=== PATIENT | male | born 1965 | race Caucasian/White ===

== ENCOUNTER → 2022-01-19 | Outpatient (CLI) | payer MEDICARE, SELFPAY ==
--- NOTE | 2022-01-19 12:00 | PET_ITS ---
EXAMINATION: FDG PET/CT ? INDICATIONS: 56-year-old male with a history of pulmonary nodularity. ? COMPARISON EXAMINATION: None available ? INDEX LESION SIZE SUV INTERPRETATION Left upper lung, left upper lobe 13.1 mm 3.2 Fulfills quantitative criteria for viable neoplasm, histopathologic analysis recommended ? Left upper lung, posteromedial ? 2.2 Quantitative criteria for viable neoplasm not fulfilled ? TECHNIQUE: Following the intravenous administration of 13.08 mCi of F-18 deoxyglucose via the right antecubital fossa, multiplanar image acquisitions of the neck, chest, abdomen and pelvis to the level of the midthigh, obtained at one-hour post radiopharmaceutical administration contemporaneously interpreted reveal: ? SERUM GLUCOSE LEVEL:? 133 mg/dL? HEIGHT:?? 61 inches WEIGHT:?? 120 pounds ? FINDINGS: ? HEAD/NECK:? There is no evidence of abnormal increased glucose metabolism in the pharyngeal mucosal space, parapharyngeal space, oropharynx, bilateral-lateral and anterior neck, hypopharynx and distribution of the larynx. ? The visualized portion of the cerebral cortical-subcortical structures demonstrate symmetric and preserved glucose metabolism. ? CHEST:? A nodular focus of increased radiopharmaceutical is noted in the left upper lung field, left upper lobe with a calculated standard uptake value of 3.2. The maximal axial diameter of the metabolic, morphologic abnormality is 13.1 mm. An additional focus of enhanced labeled GLUCOSE is noted in the left upper posteromedial lung, left upper lobe with a calculated standard uptake value of 2.2. ? CT of the chest demonstrates the following anatomic characteristics: Emphysematous changes are encountered in the bilateral upper lung bender. Atherosclerotic calcification is defined in the thoracic aorta without evidence of dilatation, aneurysm formation. Coronary artery calcification is observed. Mediastinal and bilateral axillary soft tissue densities are nonglucose avid. Bronchiectatic changes are defined in the bilateral posteromedial lung zones. ? ABDOMEN/PELVIS:? Normal physiologic distribution of the radiopharmaceutical is identified in the hepatic (2.4) and splenic parenchyma, both renal units, urinary bladder, and visualized intestinal tract. ? CT of the abdomen and pelvis is remarkable for the following: There appears to be calcification in the pancreatic head. Atherosclerotic calcification is defined in the abdominal aorta without evidence of dilatation, aneurysm formation. Pelvic arterial calcification is observed. A fat containing left inguinal hernia is noted. Right and left inguinal soft tissue densities are nonglucose avid. Calcification is defined in the prostate gland. ? SKELETAL:? There is no evidence of quantitatively significant enhanced glucose metabolism on meticulous inspection of the appendicular and axial skeletal structures. ? Degenerative changes defined in the thoracic and lumbar spine demonstrate no evidence of increased glucose metabolism. There are no sclerotic, mixed sclerotic-lytic, or primarily lytic changes defined in the axial skeletal structures with evidence of increased FDG uptake. ? PET/PET/CT Tumor Base -Thigh Init IMPRESSION: 1. The increase in FDG concentration noted in the nodular density in the left upper lung field fulfills quantitative criteria for viable neoplasm with single point technique. Histopathologic analysis is recommended. (Gunn et al, Journal of Nuclear Medicine, 32:1, 1991). 2. The increase in GLUCOSE metabolism manifest in the left upper posteromedial lung zone does not fulfill quantitative criteria for malignant transformation. Electronic Signature Eliseo Barakat D.O. Accurate Quantification of SUVs for this report are calculated using the exclusive [employer]. (U.S. Patent No. [id number] [id number]). Standardization and correction of the FDG SUV metric via [employer] technology allow for vendor non-specific objective quantitative examination comparison and optimization of the sensitivity and specificity of the FDG PET-CT examination. Electronically Signed: Eliseo Barakat, at 22:34 EST ,
== END | disposition home or self-care (01) ==
PROVIDERS: PCP Family Medicine; Referring Provider Student in an Organized Health Care Education/Training Program; Visit Provider Student in an Organized Health Care Education/Training Program
DX: R91.1 Solitary pulmonary nodule (principal)
CPT/HCPCS: 78815; A9552

== ENCOUNTER 2022-11-17 10:38 | Observation (INO) | payer MEDICARE, SELFPAY ==
[2022-11-17] VITALS (16 sets, daily range): BP systolic 131–190; BP diastolic 78–110; PULSE 88–116; RESP 16–24; TEMP 36.1–37.1; O2SAT 93–98; BMI 19.1
--- NOTE | 2022-11-17 11:07 | EX.ED.DYSGE1 ---
HPI History of Present Illness Chief Complaint: Abd Pain Detail of Chief Complaint: Shortness of breath and abdominal pain Informant: patient Narrative Narrative: Patient presents with worsening shortness of breath of the past several days. He has a history of COPD and was diagnosed with lung cancer late last year. He states he has never followed up with an oncologist and is not on any treatment. He reports increased shortness of breath the past several days especially with any exertion. He does feel like he is wheezing. He is using his nebulizer twice a day with only minimal improvement. He has a moist sounding cough with occasional sputum production. No fever or chills. He has occasional chest pain that he points to the right mid chest and localizing. Patient also complains of abdominal pain and holds his right lower quadrant. He states has been constipated chronically but is actually been having normal bowel movements the last several days. In spite of this he has continued pain. He denies any prior abdominal surgeries. He also notes that he has been out of his medication for the past 2-1/2 months. He states his doctor dismissed him from the practice as he was not able to make a follow-up appointment given that he has no phone. He states he has not had any luck in establishing a new primary care physician in [facility] where he lives. [facility] Medical History COPD (chronic obstructive pulmonary disease) Hypertension Lung cancer Neuropathy Pancreatic pseudocyst Home Medications Trazodone Hcl 200 mg PO QHS 09/14/15 [History Last Taken 09/13/15] amoxicillin 875 mg-potassium clavulanate 125 mg tablet 875 mg PO Q12H 09/14/15 [History Last Taken 09/14/15] aspirin 81 mg chewable tablet 81 mg PO DAILY@0800 09/14/15 [History Last Taken 09/14/15] colestipol 1 gram tablet (Colestid) 1 g PO DAILY 09/14/15 [History Last Taken 09/14/15] fluconazole 200 mg tablet (Diflucan) 400 mg PO DAILY 09/14/15 [History Last Taken 09/14/15] folic acid 1 mg tablet 1 mg PO DAILY@0800 09/14/15 [History Last Taken 09/14/15] lorazepam 0.5 mg tablet 0.5 mg PO BID PRN PRN ANXIETY 09/14/15 [History Last Taken 09/14/15] metoprolol tartrate 25 mg tablet 25 mg PO BID 09/14/15 [History Last Taken 09/14/15] cccyqwqfkjgb-ibiyurld-khnnog tablet (Multivitamin 50 Plus tablet) 1 ea PO DAILY 09/14/15 [History Last Taken 09/14/15] omeprazole 20 mg capsule,delayed release 20 mg PO DAILY 09/14/15 [History Last Taken 09/14/15] oxycodone 15 mg tablet,crush resistant,extended release 12 hr (OxyContin) 15 mg PO Q6H 09/14/15 [History Last Taken 09/14/15] paroxetine HCl 30 mg tablet (Paxil) 30 mg PO DAILY 09/14/15 [History Last Taken 09/14/15] pravastatin 20 mg tablet 20 mg PO QHS 09/14/15 [History Last Taken 09/13/15] gabapentin 100 mg capsule 100 mg PO TIDCM ##90 09/16/15 [Rx Last Taken Unknown] oxycodone-acetaminophen 5 mg-325 mg tablet 1 tab PO Q6H PRN PRN Severe Pain (6-10/10) ##10 09/16/15 [Rx Last Taken Unknown] Allergy/AdvReac Type Severity Reaction Status Date / Time No Known Allergies Allergy Verified 11/17/22 10:38 Social History Smoking Status: Current every day smoker tobacco type: cigarettes ROS ROS ED Constitutional Constitutional ED: Denies chills or fever(s) Eyes Eyes: Denies change in vision or discharge from eye(s) ENT ENT ED: Denies discharge from eye(s), rhinorrhea or sore throat Cardiovascular Cardiovascular: Reports chest pain; Denies palpitations Respiratory/Chest Respiratory/Chest: Reports cough, dyspnea and sputum Gastrointestinal Gastrointestinal: Reports abdominal pain; Denies nausea or vomiting Genitourinary Genitourinary ED: Denies dysuria Musculoskeletal Musculoskeletal: Reports back pain and extremity pain Integumentary Denies Abrasions or rash Neurologic Neurologic: Reports paresthesias; Denies headache(s) or weakness Psychiatric Psychiatric: Denies anxiety or depression Allergic/Immunologic Allergic/Immunologic ED: Denies lip swelling or urticaria EXAM Physical Exam Const Vital Signs: 11/17/22 10:39 11/17/22 11:23 11/17/22 11:25 Temperature 96.9 F L Temperature Source Temporal Pulse Rate 108 H 102 H Respiratory Rate 22 H 19 H Respiratory Effort Short of Breath Respiratory Pattern Tachypnea Blood Pressure 186/110 H Blood Pressure Mean 135 Pulse Ox 97 Oxygen Delivery Method Room Air Room Air 11/17/22 11:25 11/17/22 11:49 11/17/22 13:17 Temperature Temperature Source Pulse Rate 97 96 Respiratory Rate 16 24 H 22 H Respiratory Effort Respiratory Pattern Blood Pressure 190/92 H Blood Pressure Mean 124 Pulse Ox 97 93 Oxygen Delivery Method Room Air Room Air Positive well nourished and well developed General Appearance ED: well developed HEENT Reports moist mucous membranes Eyes EOMs intact bilaterally Chest Wall inspection of chest normal and palpation of chest normal Resp Resp Narrative: Expiratory wheezes bilaterally. Cardio Rate: tachycardic GI GI Narrative: Soft with mild tenderness in the right lower quadrant. No guarding or rebound. Hypoactive bowel sounds. Extremity normal to inspection Neuro oriented x3 Psych mental status grossly normal Skin no rashes or lesions noted MDM MDM MDM Narrative Medical decision making narrative: Placed on patient monitor. Aerosols given along with IV Solu-Medrol. Fentanyl given for pain. Labwork obtained to evaluate for leukocytosis, anemia, and electrolyte derangement. Chest x-ray obtained to evaluate for acute lung pathology, cardiac size, or mediastinal abnormality. EKG obtained to evaluate for cardiac arrhythmia/ischemia. History & Record Review Discussion w/independent historian: Patient Additional record(s) reviewed:: Prior outpatient record and Prior labs Lab Data Attestation: I reviewed the patient's lab results. Labs: Laboratory Results - last 24 hr 11/17/22 11:21 WBC 7.1 RBC 5.14 Hgb 15.4 Hct 47.0 MCV 91.4 MCH 30.0 MCHC 32.8 RDW Std Deviation 47.4 H RDW Coeff of Jorge 14.0 Plt Count 352 MPV 9.6 Immature Gran % (Auto) 0.300 Neut % (Auto) 56.0 Lymph % (Auto) 29.3 [place] % (Auto) 11.3 H Eos % (Auto) 2.7 Baso % (Auto) 0.4 Absolute Neuts (auto) 4.0 Absolute Lymphs (auto) 2.08 Nucleated RBC % 0 D-Dimer Quant (PE/DVT) 1.03 H* Sodium 134 L Potassium 3.4 L Chloride 102 Carbon Dioxide 26.0 Anion Gap 6 BUN 9 Creatinine 0.95 Estim Creat Clear Calc 64.66 Est GFR (MDRD) Af Amer 105 Est GFR (MDRD) Non-Af 87 BUN/Creatinine Ratio 9.5 L Glucose 150 H Calcium 8.6 Total Bilirubin 0.40 Direct Bilirubin 0.13 AST 18 ALT 28 Alkaline Phosphatase 92 Troponin I High Sens 23 Total Protein 7.5 Albumin 3.9 Globulin 3.6 Radiography Chest X-Ray - ED: 1 View, Read by ED Physician and Chronic Changes (Elation. No pneumothorax. No infiltrate.) Diagnostic Testing: Clinical Impression(s) from Imaging Studies Chest X-Ray 11/17/22 11:40 IMPRESSION: Hyperinflation. Decreased markings in both lungs suggestive of emphysematous changes. Electronically Signed: Smith Herman MD at 12:35 EDT , Chest CTA 11/17/22 12:15 IMPRESSION: Diffuse emphysematous changes. 8.4 mm x 8 mm noncalcified nodule in the left upper lobe as seen on axial image #198 and coronal image #135. Correlation with a PET scan is recommended. No evidence of pulmonary embolism. Electronically Signed: Smith Herman MD at 13:44 EDT , Abdomen/Pelvis CT 11/17/22 12:34 IMPRESSION: Atrophy of the body and tail portions of the pancreas with enlargement of the head of the pancreas. Circumferential wall thickening of the distal descending colon and sigmoid colon suggests a mild degree of colitis. Electronically Signed: Smith Herman MD at 13:36 EDT , EKG Initial EKG: Attestation: I personally reviewed and interpreted this EKG as follows: Interpretation: Sinus Rhythm (Sinus at 88 with no acute ischemia. QTC is 462.) Treatment and Re-Evaluation :: Review of records, I was able to find correspondence from the patient's primary care physician to pulmonary. This included the patient's PET scan. This was performed on January 20, 2020. Results indicate an increase in concentration to the nodular density in the left upper lung fulfilling qualitative criteria for viable neoplasm. It appears the patient had 2 different appointments with the pulmonary office but he was not able to make it either 1 of these, thus causing his lack of follow-up. CBC was a white count of 7.1 with a hemoglobin of 15.4. No left shift noted. D-dimer is slightly elevated at 1.03. Troponin is normal at 23. Chemistry studies significant for glucose of 150. Potassium is only slightly low at 3.4. Portable chest x-ray per my interpretation reveals hyperinflation but no focal infiltrate appreciated. No pneumothorax. Radiology interpretation is reviewed. With the patient having the abdominal pain as well as concern for pulmonary embolism, CTA of the chest is obtained along with a CT scan of the abdomen pelvis with IV contrast. CTA of the chest does reveal a noncalcified nodule the left upper lobe. No evidence of pulmonary embolism is noted. This corresponds with the nodule previously seen on the patient's PET scan. CT scan of the abdomen pelvis reveals atrophy of the body and tail of the pancreas with an enlargement of the head of the pancreas. Patient does have known history of pseudocyst. There is also circumferential wall thickening of the distal descending colon and sigmoid suggesting a mild degree of colitis. On repeat evaluation patient's O2 sat is 91 to 93% while lying in bed. I did asked the nursing staff to get him up to ambulate. He stood at bedside to urinate prior to ambulating and just with this movement dropped his sats to 88%. Patient be given a dose of Levaquin which will help cover his lungs given his COPD exacerbation as well as the mild colitis. I will speak with hospitalist regarding admission. Discharge Plan Triage Chief Complaint: Abd Pain Other Complaint: Shortness of Breath ED Provider: Mayda Zuñiga Dx/Rx/DC Orders Clinical Impression: Colitis, COPD exacerbation Prescriptions: No Action fluconazole [Diflucan] 200 MG tablet 400 mg PO DAILY Patient Comments: YEAST INFECTION lorazepam 0.5 MG tablet 0.5 mg PO BID PRN PRN (Reason: ANXIETY) Patient Comments: ANXIETY paroxetine HCl [Paxil] 30 MG tablet 30 mg PO DAILY Patient Comments: MENTAL HEALTH omeprazole 20 MG capsule 20 mg PO DAILY Patient Comments: ACID REFLUX aspirin 81 MG tablet,chewable 81 mg PO DAILY@0800 Patient Comments: HEART HEALTH folic acid 1 MG tablet 1 mg PO DAILY@0800 Patient Comments: SUPPLEMENT pravastatin 20 MG tablet 20 mg PO QHS Patient Comments: CHOLESTEROL LOWERING colestipol [Colestid] 1 GM tablet 1 g PO DAILY amoxicillin-pot clavulanate 875 MG tablet 875 mg PO Q12H Patient Comments: ANTIBIOTIC iqbdbsziptpk-ewxfuqej-ssvpjy [Multivitamin 50 Plus] 1 EACH tablet 1 ea PO DAILY Patient Comments: SUPPLEMENT metoprolol tartrate 25 MG tablet 25 mg PO BID Patient Comments: BLOOD PRESSURE oxycodone [OxyContin] 15 MG tablet 15 mg PO Q6H Patient Comments: PAIN Trazodone Hcl 100 MG tablet 200 mg PO QHS Patient Comments: SLEEP oxycodone-acetaminophen 1 TABLET tablet 1 tab PO Q6H PRN PRN (Reason: Severe Pain (6-1010)) Qty: 10 0RF gabapentin 100 MG capsule 100 mg PO TIDCM Qty: 90 0RF Primary Care Provider: Care Physician,No Primary Referrals: Ning Ariza MD [Med Staff - Base Draw Operator] - Disposition Disposition: Home, Self Care
[2022-11-17] MEDS: MethylPREDNISolone 125 MG/2 ML Vial IV (11:16)
[2022-11-17] MEDS: fentaNYL 100 MCG/2 ML Ampul 25 MCG IV (11:16)
[2022-11-17] MEDS: Ipratropium/Albuterol Sulfate 3 ML AMPUL.NEB INHALATION ×3 (11:27→23:09)
[2022-11-17 11:28] LABS: Absolute Lymphocyte Count 2.08 X10^3/uL (0.83-4.51); Basophil# 0.03 X10^3/uL; Basophil% 0.4 % (0-1); Eosinophil# 0.19 X10^3/uL; Eosinophils% 2.7 % (0-5); Hemoglobin 15.4 g/dL (13.0-16.5); Lymphocyte # 2.08 X10^3/ul (0.83-4.51); Lymphocyte % 29.3 % (19-41); Mean Corp Hgb Conc 32.8 g/dL (32-36); Mean Corpuscular Volume 91.4 fL (80-94); Mean Platelet Vol. 9.6 fl (6.2-12.0); Monocyte% 11.3 % (0-10); NRBC Flagged by Analyzer 0 % (0-5); Neutrophil # 3.97 X10^3/uL (2.7-7.7); Platelet Count 352 K/mm3 (150-450); RBC Distribution Width SD 47.4 fl (35.1-43.9); Red Blood Count 5.14 M/mm3 (4.6-6.2); White Blood Count 7.1 K/mm3 (4.4-11.0)
[2022-11-17] MEDS: Albuterol 2.5 MG/3 ML VIAL.NEB. INHALATION ×2 (11:33→11:48)
--- NOTE | 2022-11-17 11:40 | RAD_ITS ---
STUDY: X-RAY CHEST REASON FOR EXAM: Male, 57 years old. Shortness of breath. History of lung cancer. TECHNIQUE: Single AP portable view of the chest. COMPARISON: None. FINDINGS: EKG electrodes are seen. There is hyperinflation of the lungs consistent with chronic obstructive lung disease (COPD). Blunting of the left cosmetic angle. Normal size heart. Normal mediastinum and dat. Normal visualized pulmonary arteries. Normal visualized aortic arch and descending thoracic aorta. Normal visualized thoracic spine. Normal visualized ribs, clavicles, and shoulders. There is no demonstrated abnormality of the visualized soft tissue structures of the upper abdomen. RAD/Chest 1 View (Portable) IMPRESSION: Hyperinflation. Decreased markings in both lungs suggestive of emphysematous changes. Electronically Signed: Smith Herman MD at 12:35 EDT ,
[2022-11-17 11:42] LABS: D-Dimer Quantitative (DVT/PE) 1.03 FEU/ug/m (0.27-0.49)
[2022-11-17 11:51] LABS: AST(SGOT) 18 U/L (15-37); Alanine Aminotransfer ALT/SGPT 28 U/L (16-61); Albumin, Serum 3.9 g/dL (3.2-5.0); Alkaline Phosphatase 92 U/L (45-117); Anion Gap 6 (5-15); BUN 9 mg/dL (7-18); BUN/Creat Ratio 9.5 RATIO (10-20); Bilirubin, Direct 0.13 mg/dL (0.00-0.30); Calcium,Total 8.6 mg/dL (8.5-10.1); Chloride 102 mmol/L (98-107); Creatinine, Serum 0.95 mg/dL (0.70-1.30); EST Glomerular Filtration Rate 87 mL/min (>60); Est Glom Filt Rate - Afr Amer 105 mL/min (>60); Estimated Creatinine Clearance 64.66 ml/min; Globulin 3.6 g/dL (2.2-4.2); Glucose 150 mg/dL (74-106); Potassium 3.4 mmol/L (3.5-5.1); Protein, Total 7.5 g/dL (6.4-8.2); Sodium Level 134 mmol/L (136-145); Troponin-I HS 23 pg/mL (3.0-78.0)
--- NOTE | 2022-11-17 12:15 | CT_ITS ---
STUDY: CTA CHEST REASON FOR EXAM: Male, 57 years old. Pulmonary embolism / RLQ pain -- CTA of chest, CT abd/pel with IV. History of lung cancer. RADIATION DOSAGE (If Supplied By Facility): CTDIvol = ( 14.14 ) mGy, DLP = ( 640.54 ) mGycm TECHNIQUE: The examination was performed with the intravenous administration of IV 100mL Isovue-370. Post-processing of the angiographic images was performed, with multiplanar reformation and 3D reconstruction. Individualized dose optimization techniques were used for this CT. COMPARISON: None. FINDINGS: Normal enhancement of the main pulmonary artery and right and left pulmonary arteries. Normal enhancement of the bilateral peripheral pulmonary arteries. There is no demonstrated pulmonary embolism. Normal thoracic aorta and visualized great vessels. There is no demonstrated aortic dissection. There are calcifications of the coronary arteries. Normal mediastinum. Normal hilar regions. Normal visualized trachea and bronchi. Hyperinflation. There is an 8.4 mm x 8 mm noncalcified nodule in the left upper lobe as seen on axial image #198 and coronal image #135. Normal pleura. Normal chest wall structures. Normal osseous structures. Normal visualized upper abdomen. CT/CTA Chest W/WO Contrast IMPRESSION: Diffuse emphysematous changes. 8.4 mm x 8 mm noncalcified nodule in the left upper lobe as seen on axial image #198 and coronal image #135. Correlation with a PET scan is recommended. No evidence of pulmonary embolism. Electronically Signed: Smith Herman MD at 13:44 EDT ,
--- NOTE | 2022-11-17 12:34 | CT_ITS ---
STUDY: CT ABDOMEN AND PELVIS WITH CONTRAST REASON FOR EXAM: Male, 57 years old. RLQ PAIN RADIATION DOSAGE (If Supplied By Facility): CTDIvol = ( 14.14 ) mGy, DLP = ( 640.54 ) mGycm TECHNIQUE: Transaxial images were obtained from the dome of the diaphragm to the symphysis pubis without oral contrast. IV 100mL Isovue-370 was administered. Sagittal and coronal images were reconstructed. Individualized dose optimization techniques were used for this CT. COMPARISON: Comparison is made with prior study dated September 14, 2015. FINDINGS: The visualized lung bases are unremarkable. The visualized portions of the heart are within normal limits. Normal liver. Normal gallbladder and extrahepatic biliary system. Normal spleen. There is diffuse atrophy of the body and tail portion of the pancreas. The head of the pancreas is enlarged and measures 2.8 signs by 2.2 cm. Normal bilateral adrenal glands. Normal right kidney. Normal left kidney. Normal visualized stomach. Normal small intestine. There is circumferential wall thickening of the distal descending colon and sigmoid colon. Mild degree of diverticulitis should be ruled out. The appendix is visualized and appears normal. There is diffuse atherosclerotic calcification of the abdominal aorta, without a demonstrated aneurysm. Normal inferior vena cava. Normal retroperitoneum. Normal urinary bladder. There are prostatic calcifications. Normal abdominal wall. Disc space narrowing and spondylosis at the L5-S1 level. CT/Abdomen/Pelvis WITH Contrast IMPRESSION: Atrophy of the body and tail portions of the pancreas with enlargement of the head of the pancreas. Circumferential wall thickening of the distal descending colon and sigmoid colon suggests a mild degree of colitis. Electronically Signed: Smith Herman MD at 13:36 EDT ,
--- NOTE | 2022-11-17 14:45 | CM.ED ---
Social Work SW introduced self and role to patient. Pt reports he currently has no PCP and was discharged as a patient. Pt reports numerous medical conditions he is concerned about at this time. Pt reports he has not taken any of his medications for 2 months due to not having a prescriber. Pt reports he has a vehicle but does not feel comfortable driving very far. Pt is in [place] and reports he has been able to get a local physician. Last year patient received a diagnosis of lung cancer and has not followed up with an oncologist. SW explored patient's concerns and view point of his illness. Pt reports both his parents, brother, and aunts/uncles have from cancer and he did not see a point in getting medical care. Pt now reports he has been feeling poorly, voiced concerns about blood pressure, hernia, and difficulty breathing. Pt reports, I think I may need oxygen. SW asked about family involvement. Pt has a daughter which is local named Jean-Paul Arnold, . Pt did report he would like his daughter contacted if necessary. Pt reports he has not been keeping his daughter updated on his health. Pt reports another daughter and son but says they are all busy all the time and he does not want to bother them. Pt also reports his partner 2 years and a brother and he has struggled with these events. Pt reports 2 dogs which are very important to him. Pt indicated he lives alone and functions independently. SW provided emotional support and encouragement. SW discussed PCP options with patient. Pt is interested in having a physician come to his home and SW will arrange appointment prior to discharge. SW also discussed possible transportation and pharmacy assistance if needed. Pt indicated he believes he still has Medicaid as a secondary insurance. SW to notify registration. SW notified physician of patient concerns. Plan: SW to follow for patient d/c status. If discharged, [facility] appt. to be scheduled and any other indicated needs/appointments. If patient is admitted, d/c planning/home needs will need reviewed. Perla Haines PORTABLE FEED MILL OPERATOR, BLOW MOULDING MACHINE OPERATOR
[2022-11-17] MEDS: levoFLOXacin 750 MG Tablet PO (14:46)
[2022-11-17 14:59] LABS: Lipase 14 U/L (13-75)
--- NOTE | 2022-11-17 15:00 | PCM.HP.STD ---
HPI - General General Date of Admission: 11/17/22 Date of Service: 11/17/22 Chief Complaint: Shortness of Breath/Abd Pain HPI Narrative KELLY CASTRO, is a 57 M who presented to the emergency department at [facility] on 11/17/2022 complaining of shortness of breath and abdominal pain. Has had worsening short of breath over the last couple of days. He has a known history of COPD and reported he was diagnosed with lung cancer late last year. 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 It appears on review of previous data that a CT scan was performed at another facility and must of noted a pulmonary nodule for which a PET scan was ordered and the PET scan was positive for increased FDG uptake in the area of the pulmonary nodule. 2 appointments with pulmonary medicine were made in our computer system however it appears that they were both canceled. 1 was in January 2022 and the other was in February 2022. He has had no follow-up for this since that time. He reports that his shortness of breath started a couple days ago. He did not feel like he was wheezing. He indicated that he was worse with exertion and he had been using his nebulizer twice a day with only minimal improvement. He reported that he has having a cough with occasional sputum production however this is no worse than his baseline. He denies any fever or chills and reports occasional chest pain on the right side that localizes to the mid right chest. He also complained of abdominal pain on presentation most notably in the right lower quadrant and across the lower abdomen. He has chronic constipation but actually reported he had more stools the last several days but despite this he has had continued pain. He he denied any previous abdominal surgeries however he has known history of pancreatic pseudocyst which required intervention in 2016. He has not had any problems with that since that time. He has not followed up with a primary care physician in some time as he was dismissed from the previous practice at which she was being seen due to missing multiple appointments. The patient reports that he has no phone and transportation is a problem for him. He lives in [facility] and has not had any luck following up where he lives. Per discussion with the ER he was doing some tripoding and was significantly tachycardic and tachypneic on presentation with oxygen saturations in the mid 80s on room air. He was given an aerosol treatment, steroids, and nebulizer and his respiratory status improved. Unfortunately he was requiring oxygen to maintain sats above 88 despite treatment even though clinically improved and will require admission. He has not been taking any of his home medications for about the last 2 months. Vital signs on presentation demonstrated temperature of 96.9, heart rate 108, blood pressure 186/110, respiratory rate was 22 and oxygen saturations were at that time 97% on room air however again he desatted into the mid 80s with exertion and requires admission. His CBC is overall unremarkable however he did does have a mild monocytosis. His chemistry panel shows mild hyponatremia with a sodium of 134, hypokalemia with potassium of 3.4. Renal function is normal. His serum glucose was 150 with no history of diabetes. Liver functions are normal. His troponin was 23 and a lipase was 14. A D-dimer was obtained to his right-sided chest pain and was found to be 1.03 so a CTA of his chest was performed and demonstrated severe diffuse emphysematous changes and a 8.4 x 8 mm noncalcified nodule in the left upper lobe. No PE was identified. CT of his abdomen pelvis was performed and demonstrated atrophy at the body and tail portions of the pancreas with some enlargement in the pancreatic head consistent with previous imaging and circumferential wall thickening at the distal descending colon and sigmoid colon suggestive of colitis. The patient was given Levaquin in the emergency department and they were anticipating discharging him however unfortunately with his desaturations he will require admission. Social work is already discussed obtaining follow-up for medical care after discharge with him. [facility] Medical History COPD (chronic obstructive pulmonary disease) Hypertension Lung cancer Neuropathy Pancreatic pseudocyst Home Medications aspirin 81 mg chewable tablet 81 mg PO DAILY@0800 09/14/15 [History Last Taken 11/16/22] albuterol sulfate 90 mcg/actuation aerosol inhaler 2 puff inhalation .COMPLEX 11/17/22 [History Last Taken Unknown] amlodipine 10 mg tablet 10 mg PO DAILY 11/17/22 [History Last Taken 11/16/22] atorvastatin 40 mg tablet 40 mg PO DAILY 11/17/22 [History Last Taken Unknown] diphenhydramine 25 mg-acetaminophen 500 mg tablet 1 - 2 tab PO QHS PRN PAIN AND SLEEP 11/17/22 [History Last Taken 11/16/22] fluticasone furoate 100 mcg-vilanterol 25 mcg/dose inhalation powder 1 inh inhalation DAILY 11/17/22 [History Last Taken Unknown] lisinopril 20 mg-hydrochlorothiazide 25 mg tablet 1 tab PO DAILY 11/17/22 [History Last Taken Unknown] metoprolol tartrate 25 mg tablet 25 mg PO BID 11/17/22 [History Last Taken Unknown] omeprazole 20 mg capsule,delayed release 20 mg PO DAILY 11/17/22 [History Last Taken Unknown] paroxetine HCl 10 mg tablet 10 mg PO DAILY 11/17/22 [History Last Taken Unknown] paroxetine HCl 40 mg tablet 40 mg PO DAILY 11/17/22 [History Last Taken Unknown] tamsulosin 0.4 mg capsule 0.4 mg PO DAILY 11/17/22 [History Last Taken Unknown] trazodone 100 mg tablet 100 mg PO QHS 11/17/22 [History Last Taken Unknown] Allergy/AdvReac Type Severity Reaction Status Date / Time No Known Allergies Allergy Verified 11/17/22 10:38 no significant family history (None that patient is aware) no surgical history Social History (Updated 11/17/22 @ 16:[address] Nancy Bear, DO) household members: none other: Patient with significant transportation issues and no phone available on a Smoking Status: Current every day smoker tobacco type: cigarettes how long ago did patient quit smoking: Currently 1 pack of cigarettes daily but previously 2 packs alcohol intake: never substance use type: does not use ROS Constitutional Constitutional: Reports anorexia, fatigue, malaise and weakness; Denies change in weight, chills, fever(s), night sweats or other Eyes Eyes: Denies blurry vision, change in eye color, change in vision, discharge from eye(s), double vision, erythema, eye pain, loss of vision or other ENT HEENT: Reports abnormal hearing and hearing loss; Denies dysphagia, ear pain, epistaxis, headache(s), nasal congestion, nasal discharge, post nasal drip, sinus pressure, sore throat or other Cardiovascular Cardiovascular: Reports chest pain and dyspnea on exertion; Denies claudication, edema, lightheadedness, orthopnea, palpitations, paroxysmal nocturnal dyspnea, rapid heart rate, syncope or other Respiratory/Chest Respiratory/Chest: Reports cough, dyspnea, shortness of breath at rest and shortness of breath with exertion; Denies excessive phlegm production, hemoptysis, productive cough, wheezing or other Gastrointestinal Gastrointestinal: Reports abdominal pain and loose stools; Denies coffee ground emesis, constipation, diarrhea, dyspepsia, hematemesis, hematochezia, melena, nausea, vomiting or other Genitourinary Genitourinary: Denies burning urination, difficulty urinating, dysuria, hematuria, nocturia, urinary frequency, urinary hesitancy, urinary incontinence, urinary urgency or other Musculoskeletal Musculoskeletal: Reports other Details: Left leg neuropathy/pain ; Denies arthralgias, back pain, joint pain, joint stiffness, joint swelling, myalgias or neck pain Neurologic Neurologic: Reports paresthesias LLE (Chronic); Denies abnormal gait, abnormal speech, confusion, disequilibrium, dizziness, focal weakness, headache(s), numbness, seizure-like activity, seizures, syncope, tingling, tremor(s) or other Psychiatric Psychiatric: Reports depression; Denies anxiety, homicidal ideation, suicidal ideation or other Endocrine Endocrinology: Denies change in body appearance, cold intolerance, excessive sweating, heat intolerance, polydipsia, polyuria or other Hematologic/Lymphatic Hematologic/Lymphatic: Denies anemia, easy bleeding, easy bruising, lymphadenopathy or other Allergic/Immunologic Allergic/Immunologic: Denies rhinitis, hives, eczemia, asthma or other Vital Signs Vital Signs Vital Signs: 11/17/22 10:39 11/17/22 11:23 11/17/22 11:25 Temperature 96.9 F L Temperature Source Temporal Pulse Rate 108 H 102 H Respiratory Rate 22 H 19 H Respiratory Effort Short of Breath Respiratory Pattern Tachypnea Blood Pressure 186/110 H Blood Pressure Mean 135 Pulse Ox 97 Oxygen Delivery Method Room Air Room Air Oxygen Flow Rate (L/min) 11/17/22 11:25 11/17/22 11:49 11/17/22 13:17 Temperature Temperature Source Pulse Rate 97 96 Respiratory Rate 16 24 H 22 H Respiratory Effort Respiratory Pattern Blood Pressure 190/92 H Blood Pressure Mean 124 Pulse Ox 97 93 Oxygen Delivery Method Room Air Room Air Oxygen Flow Rate (L/min) 11/17/22 14:51 Temperature Temperature Source Pulse Rate Respiratory Rate Respiratory Effort Respiratory Pattern Blood Pressure Blood Pressure Mean Pulse Ox 95 Oxygen Delivery Method Nasal Cannula Oxygen Flow Rate (L/min) 2 Weight Weight: 53.932 kg Body Mass Index (BMI) 19.1 Physical Exam Const alert, oriented x3 and no apparent distress; Negative for average body habitus, healthy appearing or well nourished Constitutional Narrative: Thin, middle-aged, white male, appears much older than stated age, appears comfortable and nontoxic but does appear chronically ill General Appearance: cooperative HEENT normocephalic, head/scalp atraumatic and moist oral mucous membranes HEENT Narrative: Mild hearing loss, bilateral temporal wasting, dentition is poor, Mallampati 1, no thrush Eyes PERRL, EOMs intact bilaterally and conjunctivae normal Eyes Narrative: No scleral icterus Neck no lymphadenopathy and supple Neck Narrative: Trachea midline, no thyroid enlargement Resp normal respiratory effort, no retractions, no use of accessory muscles and clear to auscultation bilaterally Resp Narrative: Markedly diminished diffusely Auscultation: Negative for rales, rhonchi or wheezes Cardio regular rate, regular rhythm, S1 normal heart sound, S2 normal heart sound, no murmurs, no rub, no gallops and no clicks GI normal to inspection, nondistended, normoactive bowel sounds and soft to palpation GI Narrative: Tenderness predominantly at the right lower quadrant into the lower mid abdominal area Extremity no clubbing, cyanosis or edema Extremity Narrative: Femoral and pedal pulses are 2+, decreased lean muscle mass Skin no rashes or lesions noted, no wounds, skin turgor normal, no jaundice, no petechiae and no mottling Neuro oriented x3, CN's II-XII intact bilaterally, moves all extremities and no focal motor deficits Neuro Narrative: Generalized weakness noted Speech: speech normal Psych Psych Narrative: Affect is slightly flat, eye contact is good and mood appears stable at this time Results Lab / Micro Data Attestation: I reviewed the patient's lab results. 11/17/22 11:21 11/17/22 11:21 Labs: Laboratory Results - last 24 hr 11/17/22 11:21: WBC 7.1, RBC 5.14, Hgb 15.4, Hct 47.0, MCV 91.4, MCH 30.0, MCHC 32.8, RDW Std Deviation 47.4 H, RDW Coeff of Jorge 14.0, Plt Count 352, MPV 9.6, Immature Gran % (Auto) 0.300, Neut % (Auto) 56.0, Lymph % (Auto) 29.3, Ellis % (Auto) 11.3 H, Eos % (Auto) 2.7, Baso % (Auto) 0.4, Absolute Neuts (auto) 4.0, Absolute Lymphs (auto) 2.08, Nucleated RBC % 0, D-Dimer Quant (PE/DVT) 1.03 H*, Sodium 134 L, Potassium 3.4 L, Chloride 102, Carbon Dioxide 26.0, Anion Gap 6, BUN 9, Creatinine 0.95, Estim Creat Clear Calc 64.66, Est GFR (MDRD) Af Amer 105, Est GFR (MDRD) Non-Af 87, BUN/Creatinine Ratio 9.5 L, Glucose 150 H, Calcium 8.6, Total Bilirubin 0.40, Direct Bilirubin 0.13, AST 18, ALT 28, Alkaline Phosphatase 92, Troponin I High Sens 23, Total Protein 7.5, Albumin 3.9, Globulin 3.6, Lipase 14 Radiology Impression Chest X-Ray 11/17/22 11:40 IMPRESSION: Hyperinflation. Decreased markings in both lungs suggestive of emphysematous changes. Electronically Signed: Smith Herman MD at 12:35 EDT , Chest CTA 11/17/22 12:15 IMPRESSION: Diffuse emphysematous changes. 8.4 mm x 8 mm noncalcified nodule in the left upper lobe as seen on axial image #[id number] and coronal image #135. Correlation with a PET scan is recommended. No evidence of pulmonary embolism. Electronically Signed: Smith Herman MD at 13:44 EDT , Abdomen/Pelvis CT 11/17/22 12:34 IMPRESSION: Atrophy of the body and tail portions of the pancreas with enlargement of the head of the pancreas. Circumferential wall thickening of the distal descending colon and sigmoid colon suggests a mild degree of colitis. Electronically Signed: Smith Herman MD at 13:36 EDT , Assessment & Plan Assessment/Plan (1) COPD exacerbation: (2) Hypoxia: (3) Colitis: (4) Lung nodule: (5) Hypokalemia: PLAN: Plan Acute hypoxia secondary to acute exacerbation of COPD -CT of the chest shows horrific emphysematous changes -We will check respiratory viral panel and COVID-19 -Currently requiring 2 L to maintain oxygen saturations greater than 88% -Wean as able -Will need ambulatory pulse ox prior to discharge -Aggressive pulmonary toilet -Incentive spirometry -Acapella -Scheduled Mucinex -Will need pulmonary medicine follow-up at discharge Hypokalemia -P.o. potassium replaced -Repeat BMP in a.m. -Check a.m. magnesium level Colitis -Mild colitis noted on CT of the abdomen pelvis consistent with the area of his pain complaints -As needed pain medication -We will allow p.o. diet as long as pain is not worsened by this -Start Zosyn and would transition to Cipro/Flagyl at discharge Lung nodule -Work-up as yet incomplete however PET scan is consistent with malignancy -Missed 2 appointments with pulmonary medicine at the end of 2021 and early in 2022 -Discussed with Dr. Mckenzie and will need outpatient follow-up however no urgent needs or biopsy that will be able to be done at this time so he encouraged outpatient follow-up after acute exacerbation of COPD is resolved -Case management consulted and asked to schedule appointment prior to discharge Suspected malnutrition -Consult dietitian -Add supplements Hypertension -We will restart home medications as patient has not been to these for about 2-1/2 months -Was on amlodipine 10 mg daily, lisinopril/HCTZ, and metoprolol 25 mg p.o. twice daily -Need prescriptions at discharge -As needed hydralazine available for systolic greater than 160 GERD -Restart home PPI BPH -Continue home Flomax COPD -Home inhalers -Sure outpatient follow-up -Plan as above Depression/insomnia -Continue home paroxetine 50 mg daily -Continue home trazodone 100 mg nightly DVT prophylaxis -Lovenox 40 mg subcu daily CODE STATUS -Full code as discussed on admission Charges/Coding Visit Charges Inpatient E&M: 40030 Init Hosp L3
[2022-11-17 15:52] LABS: Hemoglobin A1c 5.9 % (3.8-5.6)
[2022-11-17] MEDS: Potassium Chloride Oral Tablet 20 MEQ 40 MEQ PO (16:19)
[2022-11-17 16:26] LABS: Bedside Glucose 215 mg/dL (74-106)
[2022-11-17] MEDS: Insulin Lispro 100 UNIT/ML INSULN.PEN SC ×2 (16:28→23:50)
[2022-11-17] MEDS: BENZOCAINE/MENTHOL 1 LOZENGE MUCOUS MEM (17:16)
[2022-11-17] MEDS: amLODIPine 10 MG Tablet PO (17:22)
[2022-11-17] MEDS: Tamsulosin HCl 0.4 MG Capsule PO (17:23)
[2022-11-17] MEDS: hydroCHLOROthiazide 25 MG Tablet PO (17:23)
[2022-11-17] MEDS: Lisinopril 20 MG Tablet PO (17:25)
[2022-11-17] MEDS: Acetaminophen 325 MG Tablet 650 MG PO (21:01)
[2022-11-17] MEDS: guaiFENesin 1,200 MG Tablet 1200 MG PO (21:02)
[2022-11-17] MEDS: traZODone 100 MG Tablet PO (21:02)
[2022-11-17] MEDS: oxyCODONE 5 MG Tablet PO (21:02)
[2022-11-17] MEDS: Methylprednisolone Sod Succ 40 MG/ML VIAL IV (21:03)
[2022-11-17] MEDS: Metoprolol Tartrate 25 MG Tablet PO (21:13)
[2022-11-17] MEDS: 0.9% Saline Lock 10 ML Syringe IV (21:13)
[2022-11-17] MEDS: Piperacil/Tazobactam 3.375 GM in 0.9% Normal Saline (50mL MB+) 50 ML IV (21:13)
[2022-11-17 22:15] LABS: Bedside Glucose 321 mg/dL (74-106)
[2022-11-17] MEDS: MELATONIN 3 MG TABLET PO (22:16)
[2022-11-18] VITALS (11 sets, daily range): BP systolic 123–129; BP diastolic 76–80; PULSE 84–97; RESP 16–20; TEMP 36.5–36.9; O2SAT 90–96; BMI 19.5
[2022-11-18] MEDS: oxyCODONE 5 MG Tablet PO ×2 (02:24→14:55)
[2022-11-18] MEDS: 0.9% Saline Lock 10 ML Syringe IV ×3 (02:24→15:42)
[2022-11-18] MEDS: Ipratropium/Albuterol Sulfate 3 ML AMPUL.NEB INHALATION ×3 (02:38→10:42)
[2022-11-18] MEDS: Insulin Lispro 100 UNIT/ML INSULN.PEN SC ×2 (05:19→11:36)
[2022-11-18] MEDS: Methylprednisolone Sod Succ 40 MG/ML VIAL IV ×2 (05:21→15:41)
[2022-11-18 05:54] LABS: Absolute Lymphocyte Count 0.79 X10^3/uL (0.83-4.51); Absolute Neutrophil Count 5.7 X10^3/uL (2.0-7.7); Hemoglobin 13.3 g/dL (13.0-16.5); Lymphocyte # 0.79 X10^3/ul (0.83-4.51); Lymphocyte % 11.6 % (19-41); Mean Corp Hgb Conc 33.3 g/dL (32-36); Mean Corpuscular Hgb 30.6 pg (27.0-32.0); Mean Platelet Vol. 9.9 fl (6.2-12.0); Monocyte# 0.29 X10^3/uL; Monocyte% 4.3 % (0-10); NRBC Flagged by Analyzer 0 % (0-5); Neutrophil % 83.7 % (47-70); Platelet Count 322 K/mm3 (150-450); RBC Distribution Width SD 47.1 fl (35.1-43.9); Red Blood Count 4.35 M/mm3 (4.6-6.2); White Blood Count 6.8 K/mm3 (4.4-11.0)
[2022-11-18 06:44] LABS: Anion Gap 6 (5-15); BUN 18 mg/dL (7-18); BUN/Creat Ratio 16.8 RATIO (10-20); Calcium,Total 8.7 mg/dL (8.5-10.1); Chloride 100 mmol/L (98-107); Creatinine, Serum 1.07 mg/dL (0.70-1.30); EST Glomerular Filtration Rate 75 mL/min (>60); Est Glom Filt Rate - Afr Amer 91 mL/min (>60); Estimated Creatinine Clearance 58.65 ml/min; Glucose 222 mg/dL (74-106); Magnesium 1.9 mg/dL (1.6-2.6); Phosphorus 2.9 mg/dL (2.5-4.9); Potassium 3.5 mmol/L (3.5-5.1); Sodium Level 133 mmol/L (136-145); Thyroid Stim Hormone (TSH) 0.13 uIU/mL (0.358-3.74)
[2022-11-18 07:12] LABS: Bedside Glucose 216 mg/dL (74-106)
--- NOTE | 2022-11-18 08:26 | PN.HOSP_ITS ---
Subjective Subjective Breathing well. Objective Data Objective Data Vital Signs: Vital Signs Temp Pulse Resp BP Pulse Ox O2 Del Method O2 Flow Rate 36.9 C 85 20 H 124/79 H 95 Room Air 2 11/18/22 02:21 11/18/22 02:39 11/18/22 02:39 11/18/22 02:21 11/18/22 02:21 11/18/22 02:34 11/17/22 15:06 Oxygen Flow Rate (L/min) 2 Oxygen Delivery Method Room Air Weight: 55.1 kg Body Mass Index (BMI) 19.5 Intake & Output: Intake and Output for Last 24 Hours 11/16/22 11/17/22 11/18/22 23:59 23:59 23:59 Intake Total 1250 / 1250 Balance 1250 / 1250 Lab / Micro Data 11/18/22 05:07 11/18/22 05:07 Labs: Laboratory Results - last 24 hr 11/17/22 11:21: WBC 7.1, RBC 5.14, Hgb 15.4, Hct 47.0, MCV 91.4, MCH 30.0, MCHC 32.8, RDW Std Deviation 47.4 H, RDW Coeff of Jorge 14.0, Plt Count 352, MPV 9.6, Immature Gran % (Auto) 0.300, Neut % (Auto) 56.0, Lymph % (Auto) 29.3, Erie % (Auto) 11.3 H, Eos % (Auto) 2.7, Baso % (Auto) 0.4, Absolute Neuts (auto) 4.0, Absolute Lymphs (auto) 2.08, Nucleated RBC % 0, D-Dimer Quant (PE/DVT) 1.03 H*, Sodium 134 L, Potassium 3.4 L, Chloride 102, Carbon Dioxide 26.0, Anion Gap 6, BUN 9, Creatinine 0.95, Estim Creat Clear Calc 64.66, Est GFR (MDRD) Af Amer 105, Est GFR (MDRD) Non-Af 87, BUN/Creatinine Ratio 9.5 L, Glucose 150 H, He moglobin A1c 5.9 H, Calcium 8.6, Total Bilirubin 0.40, Direct Bilirubin 0.13, AST 18, ALT 28, Alkaline Phosphatase 92, Troponin I High Sens 23, Total Protein 7.5, Albumin 3.9, Globulin 3.6, Lipase 14 11/17/22 16:09: POC Glucose 215 H 11/17/22 21:20: POC Glucose 321 H 11/18/22 05:07: WBC 6.8, RBC 4.35 L, Hgb 13.3, Hct 40.0, MCV 92.0, MCH 30.6, MCHC 33.3, RDW Std Deviation 47.1 H, RDW Coeff of Jorge 14.0, Plt Count 322, MPV 9.9, Immature Gran % (Auto) 0.400, Neut % (Auto) 83.7 H, Lymph % (Auto) 11.6 L, Erie % (Auto) 4.3, Eos % (Auto) 0.0, Baso % (Auto) 0.0, Absolute Neuts (auto) 5.7, Absolute Lymphs (auto) 0.79 L, Nucleated RBC % 0, Sodium 133 L, Potassium 3.5, Chloride 100, Carbon Dioxide 27.0, Anion Gap 6, BUN 18, Creatinine 1.07, Estim Creat Clear Calc 58.65, Est GFR (MDRD) Af Amer 91, Est GFR (MDRD) Non-Af 75, BUN/Creatinine Ratio 16.8, Glucose 222 H, Calcium 8.7, Phosphorus 2.9, Magnesium 1.9, TSH 0.13 L 11/18/22 05:18: POC Glucose 216 H Micro: Microbiology 11/17/22 16:44 Mucosa - Nasopharyngeal Respiratory Panel (PCR) - Final 11/17/22 15:25 Nasal Secretion SARS-CoV-2 & FLU Antigen (Rapid) - Final Radiography Diagnostic Testing: Radiology Impression Chest X-Ray 11/17/22 11:40 IMPRESSION: Hyperinflation. Decreased markings in both lungs suggestive of emphysematous changes. Electronically Signed: Smith Herman MD at 12:35 EDT , Chest CTA 11/17/22 12:15 IMPRESSION: Diffuse emphysematous changes. 8.4 mm x 8 mm noncalcified nodule in the left upper lobe as seen on axial image #198 and coronal image #135. Correlation with a PET scan is recommended. No evidence of pulmonary embolism. Electronically Signed: Smith Herman MD at 13:44 EDT , Abdomen/Pelvis CT 11/17/22 12:34 IMPRESSION: Atrophy of the body and tail portions of the pancreas with enlargement of the head of the pancreas. Circumferential wall thickening of the distal descending colon and sigmoid colon suggests a mild degree of colitis. Electronically Signed: Smith Herman MD at 13:36 EDT , Physical Exam Const alert and no apparent distress HEENT head/scalp atraumatic and moist oral mucous membranes Resp normal respiratory effort, no retractions, no use of accessory muscles and clear to auscultation bilaterally Resp Narrative: diminished BS bilaterally. Cardio regular rate, regular rhythm, S1 normal heart sound and S2 normal heart sound GI normal to inspection, nondistended, normoactive bowel sounds, soft to palpation, non-tender and non-distended Assessment & Plan Assessment/Plan (1) COPD exacerbation: PLAN: Respiratory viral panel and COVID-19 negative Down to room air. BDs, methylprednisolone Follow up with pulmonology as outp DC with prednisone burst. Ambulatory pulse ox was performed and patient dropped to 90% at rest. Patient will not require oxygen upon discharge (2) Colitis: PLAN: Mild colitis noted on CT of the abdomen pelvis consistent with the area of his pain complaints As needed pain medication We will allow p.o. diet as long as pain is not worsened by this Start Zosyn and would transition to Cipro/Flagyl at discharge Recommend GI follow-up for the colitis but also for evaluation for pancreatic abnormalities. Unclear patient has had a history of chronic pancreatitis but would require further follow-up. (3) Lung nodule: PLAN: Work-up as yet incomplete however PET scan is consistent with malignancy Missed 2 appointments with pulmonary medicine at the end of 2021 and early in [address] Mckenzie and will need outpatient follow-up however no urgent needs or biopsy that will be able to be done at this time so he encouraged outpatient follow-up after acute exacerbation of COPD is resolved Case management consulted and asked to schedule appointment prior to discharge (4) Hypokalemia: PLAN: P.o. potassium replaced Repeat BMP in a.m. Check a.m. magnesium level PLAN: Plan chronic conditions: * Suspected malnutrition-Consult dietitian-Add supplements * Hypertension -We will restart home medications as patient has not been to these for about 2-1/2 months-Was on amlodipine 10 mg daily, lisinopril/HCTZ, and metoprolol 25 mg p.o. twice daily-Need prescriptions at discharge-As needed hydralazine available for systolic greater than 160 * GERD-Restart home PPI * BPH-Continue home Flomax * Depression-Continue home paroxetine 50 mg daily-Continue home trazodone 100 mg nightly DVT prophylaxis: LMWH CODE STATUS-Full code as discussed on admission
[2022-11-18] MEDS: amLODIPine 10 MG Tablet PO (08:51)
[2022-11-18] MEDS: Paroxetine 20 MG Tablet 40 MG PO (08:52)
[2022-11-18] MEDS: Lisinopril 20 MG Tablet PO (08:53)
[2022-11-18] MEDS: Pantoprazole Sodium 20 MG Tablet PO (08:54)
[2022-11-18] MEDS: hydroCHLOROthiazide 25 MG Tablet PO (08:55)
[2022-11-18] MEDS: Tamsulosin HCl 0.4 MG Capsule PO (08:56)
[2022-11-18] MEDS: Atorvastatin Calcium 40 MG Tablet PO (08:57)
[2022-11-18] MEDS: Metoprolol Tartrate 25 MG Tablet PO (08:57)
[2022-11-18] MEDS: Aspirin 81 MG TAB.CHEW PO (08:58)
[2022-11-18] MEDS: Enoxaparin 40 MG/0.4 ML Syringe SC (08:58)
[2022-11-18] MEDS: PARoxetine 10 MG Tablet PO (09:01)
[2022-11-18] MEDS: guaiFENesin 1,200 MG Tablet 1200 MG PO (09:05)
--- NOTE | 2022-11-18 09:21 | NURSING ---
This Rn is aware of Vitals taken by [facility].
--- NOTE | 2022-11-18 10:40 | CASEMGMT ---
Addendum entered by Bee Diaz 11/18/22 14:51: Pt states he does not have any medications at home. Hospitalist aware and will order rx. Addendum entered by Bee Diaz 11/18/22 12:06: Per hospitalist, no appt for oncology yet. TC to pulm and appt set for Dec 21 at 8:45 am with . Hospital van set up and they will pick pt up at 7:55am. TC to Internal Med, appt scheduled for Jan 24 at 1pm with hospital van picking up at 12pm. Appt written on dc instructions. Rx for FWW sent to [facility] via [facility]. Pt did not qualify for home oxygen. MARIAH CONNOLLY into pt room, explained this all to pt and he is aware that this is on his dc instructions as well. Discussed with pt about obtaining a pox to monitor his oxygen levels. He states this is affordable to him. TC to pt dtr, Jean-Paul per pt request, she is aware of all of the above and all questions answered. Original Note: MARIAH CONNOLLY Face to Face with patient for initial transition planning/care coordination assessment. MARIAH CONNOLLY introduced self and role at [facility]. Patient lying in bed, alert and oriented receiving a breathing treatment. Patient willing to participate in assessment and is able to answer all questions appropriately. Care providers, pharmacy, and demographics verified. Patient wishes to discharge home. Pt is asking about HHC, but pt was made aware that this cannot be ordered since he does not have a PCP. Discussed obtaining PCP, onc and pulm and provided pt with a pamphlet of local healthcare providers. Pt is interested in using [facility] providers as he does not have transportation if he cannot drive himself. Discussed using the hospital van for this. He is agreeable with MAIRAH CONNOLLY making an appt with any providers and setting up the van as well. Pt is aware to ask his PCP at the appt for a HHC order. Pt would like MARIAH CONNOLLY to call his dtr to discuss plans as well. Provided pt with a verbal list of local DME providers, pt chose [facility]. Patient states he has no further needs or concerns at this time. CM to follow for discharge planning needs that may arise. PCP:None, MARIAH CONNOLLY to set up Specialists:None, will set up onc and pulm [facility]erred [facility]acy:[facility] Insurance:Marilou ORTEZ Prescription Benefit: yes LNOK:Jean-Paul Starrwalt, dtr Living Arrangements:Pt lives alone in a single story home with 4 steps to enter. Pt states he was I up until one week ago but now needs help with ADL's. Pt states he does not have anyone to assist. Transportation: Pt drives self but states he feels too weak to drive. He has been using [facility] transportation and will have them transport him home from the hospital. Will work on [employer] for [employer]. Provided pt with a handout on this. DME:nebulizer, inogen that a friend gave him but states it doesn't work properly, walking stick; Pt requesting FWW. HHC:Denies hx of SNF:Denies hx of Disposition Plan: Home, follow for oxygen and FWW
[2022-11-18] MEDS: Acetaminophen 325 MG Tablet 650 MG PO (11:09)
[2022-11-18] MEDS: Glucerna Shake 120 ML LIQUID PO (11:28)
--- NOTE | 2022-11-18 11:53 | NURSING ---
Pt c/o headache and chest pain. chest pain 8/10 heavy and pressure pain to sternal area. No radiation. Vitals Taken and Dr. Aguilera notified.
[2022-11-18 11:59] LABS: Bedside Glucose 320 mg/dL (74-106)
[2022-11-18 12:47] LABS: Troponin-I HS 11 pg/mL (3.0-78.0)
--- NOTE | 2022-11-18 13:10 | NURSING ---
This Nurse is aware of Troponin level.
[2022-11-18] MEDS: BENZOCAINE/MENTHOL 1 LOZENGE MUCOUS MEM (13:14)
--- NOTE | 2022-11-18 13:40 | DS.PCM_ITS ---
Providers Date of Admission: 11/17/22 Primary Care Physician: Dr. Negrita Benitez MD Reason For Visit: HYPOXIA 2/2 COPD EXACERBATION Diagnosis Discharge Diagnosis (1) COPD exacerbation: Status: Chronic Code(s): J44.1 - Chronic obstructive pulmonary disease with (acute) exacerbation Plan: Respiratory viral panel and COVID-19 negative Down to room air. BDs, methylprednisolone Follow up with pulmonology as outp DC with prednisone burst. Ambulatory pulse ox was performed and patient dropped to 90% at rest. Patient will not require oxygen upon discharge (2) Colitis: Status: Acute Code(s): K52.9 - Noninfective gastroenteritis and colitis, unspecified Plan: Mild colitis noted on CT of the abdomen pelvis consistent with the area of his pain complaints As needed pain medication We will allow p.o. diet as long as pain is not worsened by this Start Zosyn and would transition to Cipro/Flagyl at discharge Recommend GI follow-up for the colitis but also for evaluation for pancreatic abnormalities. Unclear patient has had a history of chronic pancreatitis but would require further follow-up. (3) Lung nodule: Status: Acute Code(s): R91.1 - Solitary pulmonary nodule Plan: Work-up as yet incomplete however PET scan is consistent with malignancy Missed 2 appointments with pulmonary medicine at the end of 2021 and early in [address] Mckenzie and will need outpatient follow-up however no urgent needs or biopsy that will be able to be done at this time so he encouraged outpatient follow-up after acute exacerbation of COPD is resolved Case management consulted and asked to schedule appointment prior to discharge (4) Hypokalemia: Status: Acute Code(s): E87.6 - Hypokalemia Plan: P.o. potassium replaced Repeat BMP in a.m. Check a.m. magnesium level Plan chronic conditions: * Suspected malnutrition-Consult dietitian-Add supplements * Hypertension -We will restart home medications as patient has not been to these for about 2-1/2 months-Was on amlodipine 10 mg daily, lisinopril/HCTZ, and metoprolol 25 mg p.o. twice daily-Need prescriptions at discharge-As needed hydralazine available for systolic greater than 160 * GERD-Restart home PPI * BPH-Continue home Flomax * Depression-Continue home paroxetine 50 mg daily-Continue home trazodone 100 mg nightly DVT prophylaxis: LMWH CODE STATUS-Full code as discussed on admission Medications at Discharge Home Medications aspirin 81 mg chewable tablet 81 mg PO DAILY@0800 09/14/15 albuterol sulfate 90 mcg/actuation aerosol inhaler 2 puff inhalation .COMPLEX 11/17/22 amlodipine 10 mg tablet 10 mg PO DAILY 11/17/22 atorvastatin 40 mg tablet 40 mg PO DAILY 11/17/22 diphenhydramine 25 mg-acetaminophen 500 mg tablet 1 - 2 tab PO QHS PRN PAIN AND SLEEP 11/17/22 fluticasone furoate 100 mcg-vilanterol 25 mcg/dose inhalation powder 1 inh inhalation DAILY 11/17/22 lisinopril 20 mg-hydrochlorothiazide 25 mg tablet 1 tab PO DAILY 11/17/22 metoprolol tartrate 25 mg tablet 25 mg PO BID 11/17/22 omeprazole 20 mg capsule,delayed release 20 mg PO DAILY 11/17/22 paroxetine HCl 10 mg tablet 10 mg PO DAILY 11/17/22 paroxetine HCl 40 mg tablet 40 mg PO DAILY 11/17/22 tamsulosin 0.4 mg capsule 0.4 mg PO DAILY 11/17/22 trazodone 100 mg tablet 100 mg PO QHS 11/17/22 ciprofloxacin HCl 500 mg tablet 500 mg PO Q12H #10 tabs 11/18/22 metronidazole 500 mg tablet 500 mg PO Q8H #15 tabs 11/18/22 prednisone 20 mg tablet 40 mg (2 x 20 mg) PO DAILY 5 days #10 tabs 11/18/22 Hospital Course Operations None Procedures None Summary of Care Provided Minutes Spent on Discharge: 32 Hospital Course: Patient presents with shortness of breath and transient hypoxia. Patient was diagnosed with a COPD exacerbation. Patient also having abdominal pain that showed colitis. Patient was started on piperacillin/tazobactam patient will be discharged with ciprofloxacin and metronidazole. For the COPD patient has done well and was not ambulated and did not require oxygen upon discharge. Patient is to follow-up with pulmonology as she has a nodular density in the left upper lobe that is concerning for a viable neoplasm. This was was from December 2021. Patient had not made appointments to follow-up. Is recommend the patient follow-up with pulmonology for further evaluation and to get a biopsy. Patient previously had appointment scheduled with pulmonology but those were canceled. Medical Records Data Medical Nutrition Assessment Dietitian: Malnutrition Criteria Met Start: 11/18/22 10:06 Freq: Status: Active Protocol: Document 11/18/22 10:06 [facility] (Rec: 11/18/22 10:06 [facility] Desktop) Nutrition Malnutrition Evidence of Malnutrition Exists Yes Malnutrition (moderate): Chronic Evidenced By Suboptimal Energy Intake ( Moderate),Physical Changes ( Severe) Clinical Problem Altered Nutrient-Related Laboratory Values Etiology related to steroid administration Signs/Symptoms as evidenced by gluc 222 Status Active Problem Recommendation Dietitian Recommendations/Changes Continue Cardiac/ CHO Control diet as ordered - will provide sf gelatin w/ meals per pt preference Will order 4 oz glucerna shake 4x/day w/ medpass for increased nutrition if consumed. Weight / BMI Weight Weight: 55.1 kg Body Mass Index (BMI) 19.5 ABG / Lab / Microbiology Data 11/18/22 05:07 11/18/22 05:07 Laboratory: Laboratory Results - last 24 hr 11/17/22 11:21: Hemoglobin A1c 5.9 H, Lipase 14 11/17/22 16:09: POC Glucose 215 H 11/17/22 21:20: POC Glucose 321 H 11/18/22 05:07: WBC 6.8, RBC 4.35 L, Hgb 13.3, Hct 40.0, MCV 92.0, MCH 30.6, MCHC 33.3, RDW Std Deviation 47.1 H, RDW Coeff of Jorge 14.0, Plt Count 322, MPV 9.9, Immature Gran % (Auto) 0.400, Neut % (Auto) 83.7 H, Lymph % (Auto) 11.6 L, Cole % (Auto) 4.3, Eos % (Auto) 0.0, Baso % (Auto) 0.0, Absolute Neuts (auto) 5.7, Absolute Lymphs (auto) 0.79 L, Nucleated RBC % 0, Sodium 133 L, Potassium 3.5, Chloride 100, Carbon Dioxide 27.0, Anion Gap 6, BUN 18, Creatinine 1.07, Estim Creat Clear Calc 58.65, Est GFR (MDRD) Af Amer 91, Est GFR (MDRD) Non-Af 75, BUN/Creatinine Ratio 16.8, Glucose 222 H, Calcium 8.7, Phosphorus 2.9, Magnesium 1.9, TSH 0.13 L 11/18/22 05:18: POC Glucose 216 H 11/18/22 11:30: POC Glucose 320 H 11/18/22 12:11: Troponin I High Sens 11 Microbiology: Microbiology 11/17/22 16:44 Mucosa - Nasopharyngeal Respiratory Panel (PCR) - Final 11/17/22 15:25 Nasal Secretion SARS-CoV-2 & FLU Antigen (Rapid) - Final Radiography Diagnostic Testing: Radiology Impression Chest CTA 11/17/22 12:15 IMPRESSION: Diffuse emphysematous changes. 8.4 mm x 8 mm noncalcified nodule in the left upper lobe as seen on axial image #198 and coronal image #135. Correlation with a PET scan is recommended. No evidence of pulmonary embolism. Electronically Signed: Smith Herman MD at 13:44 EDT , D/C Instructions Discharge Diet: No restrictions Call your doctor if you observe: - (Increased shortness of breath. Worsening abdominal pain.) Meaningful Use Info Meaningful Use Diagnoses (Choose all that apply): None applicable Discharge Plan Admission Admit Date/Time: 11/17/22 14:51 Primary Reason for Your Visit: COPD exacerbation. Colitis Attending Provider: Carlos Enrique Aguilera Primary Care Provider: Negrita Benitez Consulting Providers: Nancy Bear Instructions Additional Instructions / Restrictions: You have exacerbation of your COPD. Will be on steroids. I strongly recommend that you do follow-up with pulmonology for your COPD but also you have a lung mass that was diagnosed back in December. This mass is concerning for cancer and will require further evaluation including a biopsy. You also had colitis, inflammation of your colon, this is may be infectious so I would have you continue with antibiotics. I do recommend that you follow-up with gastroenterology for this colitis but also you have atrophy, decreased size, of your pancreas. I am not sure why that is but I would recommend you see a facilities custodian as outpatient. For scheduling, call to make these appointments and put him on a calendar or somewhere where you can see so that you are know when these appointments will be so you will miss them in the future. You will need to have a primary care doctor. Expressed concerns about getting help at home but to get home health care you will need a primary care doctor. Discharge Orders/Prescriptions Prescriptions: New prednisone 20 mg tablet 40 mg PO DAILY 5 Days Qty: 10 0RF ciprofloxacin HCl 500 mg tablet 500 mg PO Q12H Qty: 10 0RF metronidazole 500 mg tablet 500 mg PO Q8H Qty: 15 0RF Continued aspirin 81 MG tablet,chewable 81 mg PO DAILY@0800 Patient Comments: [facility] amlodipine 10 mg tablet 10 mg PO DAILY Patient Comments: TAKE 1 TABLET BY MOUTH ONCE DAILY diphenhydramine-acetaminophen 25-500 mg tablet 1 - 2 tab PO QHS PRN (Reason: PAIN AND SLEEP) atorvastatin 40 mg tablet 40 mg PO DAILY Patient Comments: PT STATES HAS NOT TAKEN MEDS IN MONTHS. LAST FILL WAS 08/12 PER [facility] IN [place]. paroxetine HCl 10 mg tablet 10 mg PO DAILY Patient Comments: PT STATES HAS NOT TAKEN MEDS IN MONTHS. LAST FILL WAS 08/12 PER [facility] IN [place]. Rx Instructions: PT TAKES 1 (10 MG) AND 1 (40 MG) TAB TO MAKE DAILY TOTAL DOSE OF 50 MG. tamsulosin 0.4 mg capsule 0.4 mg PO DAILY Patient Comments: PT STATES HAS NOT TAKEN MEDS IN MONTHS. LAST FILL WAS 06/12 PER [facility] IN [place]. trazodone 100 mg tablet 100 mg PO QHS Patient Comments: PT STATES HAS NOT TAKEN MEDS IN MONTHS. LAST FILL WAS 08/12 PER [facility] IN [place]. omeprazole 20 mg capsule,delayed release(DR/EC) 20 mg PO DAILY Patient Comments: PT STATES HAS NOT TAKEN MEDS IN MONTHS. LAST FILL WAS 07/12 PER [facility] IN [place]. lisinopril-hydrochlorothiazide 20-25 mg tablet 1 tab PO DAILY Patient Comments: PT STATES HAS NOT TAKEN MEDS IN MONTHS. LAST FILL WAS 06/12 FOR A 3 MONTH SUPPLY PER [facility] IN [place]. albuterol sulfate 90 mcg/actuation HFA aerosol inhaler 2 puff INHALATION .COMPLEX Patient Comments: PT STATES HAS NOT TAKEN MEDS IN MONTHS. LAST FILL WAS 08/12 PER [facility] [place]. Rx Instructions: 2 puffs inhaled Q4-6HOURS PRN; paroxetine HCl 40 mg tablet 40 mg PO DAILY Rx Instructions: PT TAKES 1 (10 MG) AND 1 (40 MG) TAB TO MAKE DAILY TOTAL DOSE OF 50 MG. metoprolol tartrate 25 mg tablet 25 mg PO BID Patient Comments: PT STATES HAS NOT TAKEN MEDS IN MONTHS. LAST FILL WAS 06/12 FOR A 3 MONTH SUPPLY PER [facility] IN [place]. fluticasone furoate-vilanterol 100-25 mcg/dose blister with device 1 inh INHALATION DAILY Patient Comments: PT STATES HAS NOT TAKEN MEDS IN MONTHS. LAST FILL WAS 08/12 PER [facility] IN [place]. Referrals / Follow Up: [facility] [Provider Group] - Within 1 Month Negrita Benitez MD [Primary Care Provider] - 01/24/23 1:00 pm (Hospital van will pick you up at 12pm. ) Santos Mckenzie MD [Med Staff - Active Staff] - 12/21/22 8:45 am (The hospital van will pick you up at 7:55am. ) Disposition Disposition (needs filled in before D/C Order can be placed): Home, Self Care Charges/Coding Visit Charges Inpatient E&M: 18071 Disch Hosp >30min
--- NOTE | 2022-11-18 14:47 | CHAPLAIN ---
Type of Pastoral Visit _x__ Initial Visit ___ Follow-up Visit ___ On-call Visit ___ General Patient Visit ___ Spiritual Assessment ___ Family Conference ___ Bereavement ___ Rapid Response ___ Code Blue ___ Other (describe below) Pastoral Care Referral From __x_ Patient ___ Family ___ Nurse ___ Physician ___ Break Off Worker ___ Diesel Engine I Pipe Fitter ___ Other (describe below) Sacrament/Intervention ___ Active listening ___ Anointing ___ Episcopal ___ Bereavement ___ Communion ___ Lea exploration ___ ___ Life review ___ Prayer ___ Reconciliation ___ Sacrament of Sick _x__ Supportive presence ___ Wedding ___ Other (describe below) Pastoral Comments patient is resting in bed; offer of presence, support, or prayer is given but pt states that he would prefer to just rest as he is not feeling well
--- NOTE | 2022-11-18 15:32 | CASEMGMT ---
Social Work SW met with pt and introduced self and role of SW. SW completed SDOH assessment (see attached assessment). SW provided pt with resources for MOW and home delivered meals, community action for utilities and transportation and [employer] Card. SW also provided pt with a list of counselors and a medicaid application. Pt states his dgt is helping him look into moving to [facility] in [facility]. Pt given [employer] resources as well. Pt openly talking with SW and discussing losses of close family members in past years. Emotional support and active listening provided to pt. Encouraged pt to speak with a counselor and to follow up with PCP. Pt acknowledges understanding and forward thinking about trying to start taking better care of himself. Pt's two dogs are important to him and help him cope with loss. Pt's dgt will be taking pt home today. SW called dgt and informed pt has been discharged. She is agreeable to take pt home and product picker his medications. Pt notified. HEMAL Schroeder
[2022-11-18] MEDS: Calcium Carbonate 500 MG Tablet 1000 MG PO (15:35)
== END 2022-11-18 17:20 | disposition home or self-care (01) | DRG 191 ==
LOC: ED 15:03 → MS3 11-18 07:04
PROVIDERS: Admitting Provider Internal Medicine; Emergency Provider Emergency Medicine; PCP Internal Medicine
DX: J44.1 Chronic obstructive pulmonary disease with (acute) exacerbation (principal); C34.12 Malignant neoplasm of upper lobe, left bronchus or lung; I10 Essential (primary) hypertension; F32.A Depression, unspecified; K52.9 Noninfective gastroenteritis and colitis, unspecified; E87.6 Hypokalemia; K21.9 Gastro-esophageal reflux disease without esophagitis; F17.210 Nicotine dependence, cigarettes, uncomplicated; R09.02 Hypoxemia; N40.0 Benign prostatic hyperplasia without lower urinary tract symptoms; G47.00 Insomnia, unspecified; Z79.51 Long term (current) use of inhaled steroids; Z20.822 Contact with and (suspected) exposure to COVID-19; Z79.82 Long term (current) use of aspirin; Z79.899 Other long term (current) drug therapy; E87.1 Hypo-osmolality and hyponatremia
CPT/HCPCS: 36415; 71045; 71275; 74177; 80048; 80076; 82962; 83036; 83690; 83735; 84100; 84443; 84484; 85025; 85379; 87070; 87205; 87428; 87633; 93005; 94640; 94668; 96365; 96366; 96372; 96375; 96376; 97162; 97166; 97802; 99221; 99252; 99285; 99406; Q9967; A4216; G0378; G0463

== ENCOUNTER 2023-05-12 14:32 | Outpatient (CLI) | payer MEDICARE, SELFPAY ==
[2023-05-12 15:53] LABS: Absolute Lymphocyte Count 2.47 X10^3/uL (0.83-4.51); Basophil# 0.07 X10^3/uL; Basophil% 0.7 % (0-1); Eosinophil# 0.21 X10^3/uL; Eosinophils% 2.1 % (0-5); Hematocrit 40.9 % (40-54); Hemoglobin 13.1 g/dL (13.0-16.5); Lymphocyte # 2.47 X10^3/ul (0.83-4.51); Lymphocyte % 24.8 % (19-41); Mean Corpuscular Hgb 30.9 pg (27.0-32.0); Mean Corpuscular Volume 96.5 fL (80-94); Mean Platelet Vol. 9.9 fl (6.2-12.0); Monocyte# 1.16 X10^3/uL; Monocyte% 11.6 % (0-10); NRBC Flagged by Analyzer 0 % (0-5); Neutrophil # 6.03 X10^3/uL (2.7-7.7); Neutrophil % 60.6 % (47-70); Platelet Count 310 K/mm3 (150-450); RBC Distribution Width CV 12.9 % (11.6-14.6); RBC Distribution Width SD 45.1 fl (35.1-43.9); Red Blood Count 4.24 M/mm3 (4.6-6.2)
[2023-05-12 16:17] LABS: Vitamin B12 399 pg/mL (211-911)
[2023-05-12 16:34] LABS: AST(SGOT) 18 U/L (15-37); Alanine Aminotransfer ALT/SGPT 26 U/L (16-61); Albumin, Serum 3.5 g/dL (3.2-5.0); Alkaline Phosphatase 84 U/L (45-117); Anion Gap 6 (5-15); BUN 10 mg/dL (7-18); Calcium,Total 8.8 mg/dL (8.5-10.1); Chloride 93 mmol/L (98-107); Cholesterol 166 mg/dL (200); Creatinine, Serum 0.67 mg/dL (0.70-1.30); EST Glomerular Filtration Rate 130 mL/min (>60); Est Glom Filt Rate - Afr Amer 157 mL/min (>60); Globulin 3.6 g/dL (2.2-4.2); Glucose 83 mg/dL (74-106); High Density Lipoprotein 79 mg/dL; PSA,Total - Annual Screen 0.81 ng/mL (0.00-4.00); Potassium 4.2 mmol/L (3.5-5.1); Protein, Total 7.1 g/dL (6.4-8.2); Sodium Level 132 mmol/L (136-145); Thyroid Stim Hormone (TSH) 0.46 uIU/mL (0.358-3.74); Triglycerides 87 mg/dL; Very Low Density Lipoprotein 17 mg/dL (5-40)
[2023-05-12 17:54] LABS: Hemoglobin A1c 6.6 % (3.8-5.6)
== END 2023-05-12 23:59 | disposition home or self-care (01) ==
LOC: BIMLAB 14:32
PROVIDERS: PCP Nurse Practitioner; Referring Provider Nurse Practitioner; Visit Provider Nurse Practitioner
DX: I10 Essential (primary) hypertension (principal); C34.90 Malignant neoplasm of unspecified part of unspecified bronchus or lung; F17.200 Nicotine dependence, unspecified, uncomplicated; G62.9 Polyneuropathy, unspecified; N40.0 Benign prostatic hyperplasia without lower urinary tract symptoms; K59.00 Constipation, unspecified
CPT/HCPCS: 36415; 80053; 80061; 82607; 83036; 84153; 84443; 85025; G0103

== ENCOUNTER 2023-11-09 13:42 | Inpatient (IN) | payer MEDICARE, SELFPAY ==
[2023-11-09] VITALS (11 sets, daily range): BP systolic 169–207; BP diastolic 101–124; PULSE 97–105; RESP 18–24; TEMP 36.1–36.7; O2SAT 93–100; BMI 21.7; BMI 21.2
--- NOTE | 2023-11-09 16:08 | EDS_ITS ---
HPI History of Present Illness Chief Complaint: Shortness of Breath [facility] Medical History COPD (chronic obstructive pulmonary disease) Hypertension Lung cancer Myocardial infarction Neuropathy Pancreatic pseudocyst Home Medications ?Medication ?Instructions ?Recorded ?Last Taken ?Type miscellaneous medical supply #1 ea 04/04/23 Unknown Rx (Blood Pressure Cuff) albuterol sulfate 90 mcg/actuation 2 puff inhalation .COMPLEX #6.7 05/09/23 Unknown Rx aerosol inhaler grams amlodipine 10 mg tablet 10 mg PO DAILY #30 tabs 05/09/23 Unknown Rx atorvastatin 40 mg tablet 40 mg PO DAILY #30 tabs 05/09/23 Unknown Rx tamsulosin 0.4 mg capsule 0.4 mg PO DAILY #30 caps 05/09/23 Unknown Rx aspirin 81 mg chewable tablet 81 mg PO DAILY@0800 #30 tabs 05/12/23 Unknown Rx cetirizine 10 mg tablet (All Day 10 mg PO DAILY #30 tabs 05/12/23 Unknown Rx Allergy (cetirizine)) duloxetine 30 mg capsule,delayed 30 mg PO DAILY #60 caps 05/12/23 Unknown Rx release lisinopril 20 1 tab PO DAILY #30 tabs 05/12/23 Unknown Rx mg-hydrochlorothiazide 25 mg tablet trazodone 50 mg tablet 50 mg PO QHS PRN insomnia #60 tabs 05/12/23 Unknown Rx budesonide 180 mcg/actuation 2 inh inhalation BID #1 ea 05/16/23 Unknown Rx breath activated powder inhaler formoterol fumarate 20 mcg/2 mL 2 ml inhalation Q12H #120 mL 05/16/23 Unknown Rx solution for nebulization blood sugar diagnostic (Blood #50 ea 05/17/23 Unknown Rx Glucose Test strips) blood-glucose meter (Blood Glucose #1 ea 05/17/23 Unknown Rx Monitoring kit) lancets (Fingerstix Lancets) #100 ea 05/17/23 Unknown Rx metformin 500 mg tablet 500 mg PO DAILY #90 tabs 05/17/23 Unknown Rx metoprolol tartrate 25 mg tablet 25 mg PO BID #60 tabs 05/19/23 Unknown Rx Allergy/AdvReac Type Severity Reaction Status Date / Time No Known Allergies Allergy Verified 11/09/23 13:46 Family History Father Cancer PROSTATE Thyroid disorder Mother Hypertension Cancer GYNECOLOGICAL Grandfather Hypertension Brother Cancer PROSTATE Hypertension Surgical History History of heart artery stent History of hernia surgery History of shoulder surgery Previous back surgery Social History household members: none other: Patient with significant transportation issues and no phone available on a Smoking Status: Current every day smoker tobacco type: cigarettes how long ago did patient quit smoking: Currently 1 pack of cigarettes daily but previously 2 packs alcohol intake: former substance use type: does not use and former substance user what type of physical activity do you participate in: none seatbelt use: always do you feel safe at home: Yes EXAM Physical Exam Const Vital Signs: 11/09/23 13:43 11/09/23 16:01 11/09/23 16:02 Temperature 98.1 F Temperature Source Oral Pulse Rate 103 H 98 Respiratory Rate 19 H 20 H Respiratory Effort Short of Breath Labored Blood Pressure 175/105 H 173/101 H Blood Pressure Mean 128 125 Pulse Ox 98 100 Oxygen Delivery Method Nasal Cannula Nasal Cannula Nasal Cannula Oxygen Flow Rate (L/min) 2.5 2.5 2.5 11/09/23 16:29 11/09/23 16:46 11/09/23 18:00 Temperature Temperature Source Pulse Rate 97 104 H Respiratory Rate 18 20 H Respiratory Effort Blood Pressure 169/104 H 183/111 H Blood Pressure Mean 125 135 Pulse Ox 98 97 97 Oxygen Delivery Method Nasal Cannula Nasal Cannula Room Air Oxygen Flow Rate (L/min) 2.5 2.5 11/09/23 20:00 Temperature Temperature Source Pulse Rate 97 Respiratory Rate 20 H Respiratory Effort Blood Pressure 188/124 H Blood Pressure Mean 145 Pulse Ox 98 Oxygen Delivery Method Oxygen Flow Rate (L/min) MDM MDM MDM Narrative Medical decision making narrative: HISTORY OF PRESENT ILLNESS: 58-year-old male history of hypertension, COPD, lung cancer presents with shortness of breath. He states per triage note that he has neuropathy in his legs and he thinks he is spreading to his hands. He notes he has been on his meds because he is not see a doctor since May. He notes he has lung cancer as well. Notes 2 years of shortness of breath has been progressive. Notes lower extremity edema. Denies unilateral leg swelling or other PE risk factors as below. Denies syncope. But notes right-sided chest pain. Notes chronic cough but no fever or chills. No sick contacts. No bleeding diathesis The patient denies recent surgery in the last 4 weeks or immobilization in the last 3 days, denies previous diagnosis of DVT or PE, hemoptysis, unilateral leg swelling or malignancy with treatment the last 6 months or palliative. No estrogen use noted. REVIEW OF SYSTEMS: Pertinent positives: Shortness of breath, chest pain, chronic cough, lower extremity edema Pertinent negatives: Syncope, focal weakness or numbness PHYSICAL EXAM: Nursing triage notes reviewed, Vital signs reviewed Constitutional: please see mdm HENT: MMM Eyes: Pupils equal round and reactive to light, Extraocular muscles intact Neck: No stridor, no JVD, full neck ROM Lungs: Clear to auscultation, No wheezing or rales. No increased work of breathing, no conversational dyspnea, no accessory muscle use, no nasal flaring. No respiratory distress noted Heart: Regular rate and rhythm, No murmurs, No rubs and No gallops, 2+ distal pulses (radial, femoral, posterior tibial) in all extremities Abdomen: Soft, there is no tenderness, rigidity, rebound or guarding, no obvious peritoneal signs, no palpable pulsatile abdominal masses, no auscultated abdominal bruit : No CVAT Extremities: N trace edema noted bilateral Neuro: No focal neurological deficits, cranial nerves II through XII intact, 5/5 strength in all extremities. Intact sensation to light touch in all extremities, 2+ reflexes bilateral patella tendons. Normal gait. No ataxia. Skin: No rash or lesions noted MEDICAL DECISION MAKING: Chief Complaint: Shortness of breath External records reviewed: Reviewed prior medical problems, reviewed medication Factors affecting care: As per HPI Social determinants of health: none History obtained from others: none Consults: none [facility] Narrative: The patient was initially hypertensive with a blood pressure 175/105, slightly tachycardic with a heart rate of 103, saturating in 98% by nasal cannula of 2- 1/2 L I considered the following differential diagnosis: Anemia, arrhythmia, macho ctrolyte disturbance, ACS, CHF, PE, pneumonia, COPD exacerbation I obtained a broad lab and imaging workup to further elucidate etiology of patient complaints. ALL IMAGES (IF OBTAINED) HAVE BEEN PERSONALLY REVIEWED AND INTERPRETED BY MYSELF. CT of the chest shows no evidence of obvious PE or pneumonia shows evidence of mass. No evidnece of CHF Troponin elevated consistent myocardial ischemia will send delta troponin. Delta stable and elevated COVID flu RSV is negative BNP elevated consistent with small component of volume overload CBC without leukocytosis, severe anemia, no thrombocytopenia. BMP without evidence of significant electrolyte abnormalities, no anion gap, no acute kidney injury. EKG with normal sinus rhythm at a rate of 95, normal axis, normal intervals, no obvious STEMI Discussed with hospitalist who agreed admit the patient given elevated troponin and poor medication compliance. After discussion with hospitalist patient treated with oral aspirin, 4 mg Lasix, DuoNeb breathing treatment and nitroglycerin sublingual x 1. The patient and/or family, caregivers express understanding. The patient and/or family, caregivers agrees with the plan. Shared decision making: I will have a discussion with the patient and or visitors regarding risk/benefits of further testing or admission. They will be made aware of of the risk/benefits inherent in this decision they will be given the opportunity to voice understanding. Total critical care time today provided was at least 0 minutes. This excludes separately billable procedures. Critical care time (if documented) is secondary to the patient having high probability of clinically significant/life threatening deterioration in the patient's condition which required my urgent intervention. Impression: 1. Dyspnea 2. History of lung cancer 3. Elevated troponin 4. CHF exacerbation Dispo: Admit to PCU This note was generated with [employer] dictation software. It may contain incorrect words, spelling, and punctuation that were not noted in review of the chart prior to signing. Lab Data Labs: Laboratory Results - last 24 hr 11/09/23 11/09/23 16:48 19:56 WBC 9.9 RBC 5.22 Hgb 15.5 Hct 49.7 MCV 95.2 H MCH 29.7 MCHC 31.2 L RDW Std Deviation 49.8 H RDW Coeff of Ojrge 14.2 Plt Count 254 MPV 10.8 Immature Gran % (Auto) 0.300 Neut % (Auto) 66.5 Lymph % (Auto) 21.9 [place] % (Auto) 8.7 Eos % (Auto) 2.1 Baso % (Auto) 0.5 Absolute Neuts (auto) 6.5 Absolute Lymphs (auto) 2.16 Nucleated RBC % 0 Sodium 136 Potassium 4.3 Chloride 99 Carbon Dioxide 32.0 Anion Gap 5 BUN 11 Creatinine 0.71 Estim Creat Clear Calc 96.88 Est GFR (MDRD) Af Amer 147 Est GFR (MDRD) Non-Af 121 BUN/Creatinine Ratio 15.6 Glucose 115 H Calcium 9.3 Troponin I High Sens 84 H 85 H B-Natriuretic Peptide 1114.5 H Radiography Diagnostic Testing: Clinical Impression(s) from Imaging Studies Chest CTA 11/09/23 16:30 IMPRESSION: No acute abnormalities. Specifically, no evidence of acute pulmonary emboli to the segmental level. 1 cm spiculated soft tissue nodule in the left upper lobe, unchanged in size since 11/17/2022. Per Fleischner criteria, consider additional follow-up chest CT in one year. Electronically Signed: Ryan Parish MD at 19:00 EDT Reading Location ID and State: [facility] / [place] Tel , Service support , Discharge Plan Triage Chief Complaint: Shortness of Breath ED Provider: Eddie Ocasio Dx/Rx/DC Orders Prescriptions: No Action (DME) Blood Pressure Cuff Misc See Rx Instructions .Route Qty: 1 0RF Rx Instructions: As directed cetirizine [All Day Allergy (cetirizine)] 10 mg tablet 10 mg PO DAILY Qty: 30 1RF trazodone 50 mg tablet 50 mg PO QHS PRN (Reason: insomnia) Qty: 60 0RF lisinopril-hydrochlorothiazide 20-25 mg tablet 1 tab PO DAILY Qty: 30 1RF aspirin 81 mg tablet,chewable 81 mg PO DAILY@0800 Qty: 30 1RF duloxetine 30 mg capsule,delayed release(DR/EC) 30 mg PO DAILY Qty: 60 0RF Rx Instructions: Take one tablet per day x 1 week then increase to 2 tablets the following week amlodipine 10 mg tablet 10 mg PO DAILY Qty: 30 1RF atorvastatin 40 mg tablet 40 mg PO DAILY Qty: 30 1RF tamsulosin 0.4 mg capsule 0.4 mg PO DAILY Qty: 30 1RF albuterol sulfate 90 mcg/actuation HFA aerosol inhaler 2 puff INHALATION .COMPLEX Qty: 6.7 1RF Rx Instructions: 2 puffs inhaled Q4-6HOURS PRN; budesonide 180 mcg/actuation aerosol powdr breath activated 2 inh inhalation BID Qty: 1 3RF formoterol fumarate 20 mcg/2 mL solution for nebulization 2 ml inhalation Q12H Qty: 120 2RF metformin 500 mg tablet 500 mg PO DAILY Qty: 90 0RF (DME) Blood Glucose Test Strip See Rx Instructions .Route Qty: 50 2RF Rx Instructions: As directed (DME) lancets [Fingerstix Lancets] Misc See Rx Instructions .Route Qty: 100 0RF Rx Instructions: As directed (DME) blood-glucose meter [Blood Glucose Monitoring] Kit See Rx Instructions .Route Qty: 1 0RF Rx Instructions: As directed metoprolol tartrate 25 mg tablet 25 mg PO BID Qty: 60 1RF Primary Care Provider: Sabra Young Referrals: Sabra Young, [facility] [Primary Care Provider] - Print Language: Ukrainian
--- NOTE | 2023-11-09 16:30 | CT_ITS ---
INDICATION: Shortness of breath, history of cancer rule out PE EXAMINATION: CTA Chest WO/W Contrast Injection TECHNIQUE: Helically acquired images were obtained of the chest following administration of IV contrast. A radiation dose optimization technique was used for this scan. 3D postprocessing images including MIPS were reviewed. IV Contrast dosage and agent: IV 100mL [id number] COMPARISON: 11/17/2022. FINDINGS: Lungs: Severe emphysematous changes. 1 cm spiculated soft tissue nodule in the left upper lobe (image 196, series 2), unchanged in size since 11/17/2022. Right basilar atelectasis. Mediastinum: The heart is mildly enlarged. No mediastinal, hilar or axillary adenopathy. Mild aortic arch and coronary artery calcifications. No obvious filling defect seen within the visualized pulmonary arteries. Pleura: Unremarkable Bones/Soft tissues: There are diffuse degenerative changes of the spine. Upper abdomen: Hiatal hernia. CT/CTA Chest W/WO Contrast IMPRESSION: No acute abnormalities. Specifically, no evidence of acute pulmonary emboli to the segmental level. 1 cm spiculated soft tissue nodule in the left upper lobe, unchanged in size since 11/17/2022. Per Fleischner criteria, consider additional follow-up chest CT in one year. Electronically Signed: Ryan Parish MD at 19:00 EDT ,
--- NOTE | 2023-11-09 16:31 | EKG12_ITS ---
Test Reason : cp/sob Blood Pressure : / mmHG Vent. Rate : 095 BPM Atrial Rate : 095 BPM P-R Int : 132 ms QRS Dur : 076 ms QT Int : 374 ms P-R-T Axes : 082 146 034 degrees QTc Int : 469 ms Normal sinus rhythm Biatrial enlargement Right axis deviation Pulmonary disease pattern Nonspecific ST and T wave abnormality Abnormal ECG No previous ECGs available Confirmed by Sam Zavala ([id number]), marketing editor SHENA NUNES ([id number]) on 11/13/2023 2:30:20 PM Referred By: Confirmed By:Sam Zavala
[2023-11-09 17:24] LABS: Absolute Lymphocyte Count 2.16 X10^3/uL (0.83-4.51); Absolute Neutrophil Count 6.5 X10^3/uL (2.0-7.7); Basophil# 0.05 X10^3/uL; Basophil% 0.5 % (0-1); Eosinophil# 0.21 X10^3/uL; Eosinophils% 2.1 % (0-5); Hematocrit 49.7 % (40-54); Hemoglobin 15.5 g/dL (13.0-16.5); Lymphocyte # 2.16 X10^3/ul (0.83-4.51); Lymphocyte % 21.9 % (19-41); Mean Corp Hgb Conc 31.2 g/dL (32-36); Mean Corpuscular Hgb 29.7 pg (27.0-32.0); Mean Corpuscular Volume 95.2 fL (80-94); Mean Platelet Vol. 10.8 fl (6.2-12.0); Monocyte# 0.86 X10^3/uL; Monocyte% 8.7 % (0-10); NRBC Flagged by Analyzer 0 % (0-5); Neutrophil # 6.54 X10^3/uL (2.7-7.7); Neutrophil % 66.5 % (47-70); Platelet Count 254 K/mm3 (150-450); RBC Distribution Width CV 14.2 % (11.6-14.6); RBC Distribution Width SD 49.8 fl (35.1-43.9); Red Blood Count 5.22 M/mm3 (4.6-6.2); White Blood Count 9.9 K/mm3 (4.4-11.0)
[2023-11-09 17:32] LABS: BNP,B-Type NATRIURETIC PEPTIDE 1114.5 pg/mL (0-100)
[2023-11-09 17:35] LABS: Anion Gap 5 (5-15); BUN 11 mg/dL (7-18); BUN/Creat Ratio 15.6 RATIO (10-20); Calcium,Total 9.3 mg/dL (8.5-10.1); Chloride 99 mmol/L (98-107); Creatinine, Serum 0.71 mg/dL (0.70-1.30); EST Glomerular Filtration Rate 121 mL/min (>60); Est Glom Filt Rate - Afr Amer 147 mL/min (>60); Estimated Creatinine Clearance 96.88 ml/min; Glucose 115 mg/dL (74-106); Potassium 4.3 mmol/L (3.5-5.1); Sodium Level 136 mmol/L (136-145); Troponin-I HS (w/2H Reflex) 84 pg/mL (3.0-78.0)
[2023-11-09 19:10] LABS: Reflex Troponin-HS? (from REC) Y
[2023-11-09 20:32] LABS: Troponin-I HS 85 pg/mL (3.0-78.0)
--- NOTE | 2023-11-09 21:08 | PCM.HP.STD ---
HPI - General General Date of Admission: 11/09/23 Date of Service: 11/09/23 Chief Complaint: Dyspnea, chest pain, lower extremity edema. HPI Narrative The patient is a 58 y/o M w/ PMHx: HTN, HLD, Hx Lung CA unclear type, Diabetes mellitus type II with Chronic neuropathy, PAF, CAD s/p PCI, Anxiety and Depression, COPD w/ Chronic Hypoxic Respiratory Failure (2.5L NC), Known Pancreatic pseudocyst, tobacco use, BPH who presents to the [facility] ED on 11/09/23 with history of worsening shortness of breath as well as ongoing uncontrolled chronic neuropathy as he has not been on any medication as he has not seen a physician since May with increased lower extremity swelling and right sided chest discomfort described as aching with no radiation nor any associated nausea/emesis or diaphoresis, constant rated 3-4 out of 10 in severity although occasionally worse but more so following coughing bouts with a chronic cough that is unchanged with no recent fevers or chills prompting eventual ED evaluation to be cautious. He notes that he has not been making any of his doctors visits in order to be able to have medications and assessments because of difficulty with rides. He does report significant lower extremity discomfort and pain as well as worsened swelling ongoing for several months especially since he is not been on gabapentin which he noted to have been on previously. he states he is had difficulty walking because of this. Workup in the ED included T98.1, heart 103, BP 175/105, respiratory rate 19, 98% on 2.5 liters nasal cannula which appears to be his chronic flow with most recent repeat vital signs heart rate 97, BP 188/124, respiratory rate 20, 90% on 2.5 L nasal cannula, CBC with WBC 9.9, hemoglobin 15.5, platelet 254 without marked shift, BMP with glucose 115, BNP 1114.5, initial troponin 84 with repeat delta 85, chest CTPA with no acute abnormalities, no acute pulmonary emboli at the segmental level, 1 cm spiculated soft tissue nodule in the left upper lobe which is unchanged since 11/17/22, SARS COVID/influenza/RSV PCR negative, EKG with SR with no acute evidence of ischemia. In the ED patient administered SL NG and lasix 40 mg IV x 1. [facility] Medical History Anxiety and depression Lung cancer Chronic hypoxic respiratory failure, on home oxygen therapy PAD (peripheral artery disease) Coronary artery disease BPH (benign prostatic hyperplasia) Tobacco use disorder Pancreatic pseudocyst/cyst Myocardial infarction Neuropathy Hypertension COPD (chronic obstructive pulmonary disease) Pancreatic pseudocyst Lung cancer Home Medications ?Medication ?Instructions ?Recorded ?Last Taken ?Type miscellaneous medical supply #1 ea 04/04/23 Unknown Rx (Blood Pressure Cuff) albuterol sulfate 90 mcg/actuation 2 puff inhalation .COMPLEX ask pcp 05/09/23 Unknown Rx aerosol inhaler #6.7 grams amlodipine 10 mg tablet 10 mg PO DAILY ask pcp #30 tabs 05/09/23 Unknown Rx atorvastatin 40 mg tablet 40 mg PO DAILY #30 tabs 05/09/23 Unknown Rx tamsulosin 0.4 mg capsule 0.4 mg PO DAILY #30 caps 05/09/23 Unknown Rx aspirin 81 mg chewable tablet 81 mg PO DAILY@0800 #30 tabs 05/12/23 Unknown Rx cetirizine 10 mg tablet (All Day 10 mg PO DAILY #30 tabs 05/12/23 Unknown Rx Allergy (cetirizine)) lisinopril 20 1 tab PO DAILY ask pcp #30 tabs 05/12/23 Unknown Rx mg-hydrochlorothiazide 25 mg tablet budesonide 180 mcg/actuation 2 inh inhalation BID #1 ea 05/16/23 Unknown Rx breath activated powder inhaler formoterol fumarate 20 mcg/2 mL 2 ml inhalation Q12H #120 mL 05/16/23 Unknown Rx solution for nebulization blood sugar diagnostic (Blood #50 ea 05/17/23 Unknown Rx Glucose Test strips) blood-glucose meter (Blood Glucose #1 ea 05/17/23 Unknown Rx Monitoring kit) lancets (Fingerstix Lancets) #100 ea 05/17/23 Unknown Rx metformin 500 mg tablet 500 mg PO DAILY #90 tabs 05/17/23 Unknown Rx metoprolol tartrate 25 mg tablet 25 mg PO BID ask pcp #60 tabs 05/19/23 Unknown Rx aspirin 81 mg tablet,delayed 81 mg PO DAILY health maintenance 11/09/23 Unknown History release (Adult Low Dose Aspirin) buspirone .ROUTE ask pcp 11/09/23 Unknown History colestipol 1 gram tablet 1 g PO BID ask pcp 11/09/23 Unknown History duloxetine 60 mg capsule,delayed 60 mg PO DAILY depression 11/09/23 Unknown History release (Cymbalta) folic acid 1 mg tablet 1 mg PO DAILY health maintenance 11/09/23 Unknown History hydroxyzine HCl 50 mg tablet 50 mg PO Q4H PRN ask pcp 11/09/23 Unknown History omeprazole 20 mg capsule,delayed 20 mg PO DAILY ask pcp 11/09/23 Unknown History release paroxetine HCl 40 mg tablet 40 mg PO DAILY ask pcp 11/09/23 Unknown History pravastatin 20 mg tablet 20 mg PO DAILY ask pcp 11/09/23 Unknown History trazodone 100 mg tablet 200 mg PO QHS ask pcp 11/09/23 Unknown History Allergy/AdvReac Type Severity Reaction Status Date / Time No Known Allergies Allergy Verified 11/09/23 13:46 Family History Father Cancer PROSTATE Thyroid disorder Mother Hypertension Cancer GYNECOLOGICAL Grandfather Hypertension Brother Cancer PROSTATE Hypertension Surgical History History of hernia surgery Previous back surgery History of shoulder surgery History of heart artery stent Social History household members: none other: Patient with significant transportation issues and no phone available on a Smoking Status: Current every day smoker tobacco type: cigarettes how long ago did patient quit smoking: Currently 1 pack of cigarettes daily but previously 2 packs alcohol intake: former substance use type: does not use and former substance user what type of physical activity do you participate in: none seatbelt use: always do you feel safe at home: Yes ROS ROS Narrative Admission Review of Systems: CONSTITUTIONAL: No weight loss, fever, chills, + weakness or fatigue. HEENT: Eyes: No visual loss, blurred vision, double vision or yellow sclerae. Ears, Nose, Throat: No hearing loss, sneezing, congestion, runny nose or sore throat. SKIN: No rash or itching, lesions, wounds. CARDIOVASCULAR: + Edema, chest pain, orthopnea. No palpitations, orthopnea, syncopal events. RESPIRATORY: + Dyspnea, worse with exertion, chronic cough without marked sputum. No marked wheezing, hemoptysis. GASTROINTESTINAL: No anorexia, nausea, vomiting or diarrhea, abdominal pain, melena, BRBPR. GENITOURINARY: No dysuria, frequency, urgency or retention. NEUROLOGICAL: No headache, dizziness, syncope, paralysis, ataxia, numbness or tingling in the extremities, focal weakness, change in bowel or bladder control, seizure. MUSCULOSKELETAL: + muscle, back pain, joint pain or stiffness. HEMATOLOGIC: No anemia. + Easy bleeding/bruising. LYMPHATICS: No enlarged nodes. No history of splenectomy. PSYCHIATRIC: + History of anxiety and depression. ENDOCRINOLOGIC: + reports of sweating, cold or heat intolerance. No polyuria or polydipsia. ALLERGIES: No history of asthma, hives, eczema or rhinitis. Vital Signs Vital Signs Vital Signs: 11/09/23 13:43 11/09/23 16:01 11/09/23 16:02 Temperature 98.1 F Temperature Source Oral Pulse Rate 103 H 98 Respiratory Rate 19 H 20 H Respiratory Effort Short of Breath Labored Blood Pressure 175/105 H 173/101 H Blood Pressure Mean 128 125 Pulse Ox 98 100 Oxygen Delivery Method Nasal Cannula Nasal Cannula Nasal Cannula Oxygen Flow Rate (L/min) 2.5 2.5 2.5 11/09/23 16:29 11/09/23 16:46 11/09/23 18:00 Temperature Temperature Source Pulse Rate 97 104 H Respiratory Rate 18 20 H Respiratory Effort Blood Pressure 169/104 H 183/111 H Blood Pressure Mean 125 135 Pulse Ox 98 97 97 Oxygen Delivery Method Nasal Cannula Nasal Cannula Room Air Oxygen Flow Rate (L/min) 2.5 2.5 11/09/23 20:00 Temperature Temperature Source Pulse Rate 97 Respiratory Rate 20 H Respiratory Effort Blood Pressure 188/124 H Blood Pressure Mean 145 Pulse Ox 98 Oxygen Delivery Method Oxygen Flow Rate (L/min) Weight Weight: 134 lb 12.8 oz Body Mass Index (BMI) 21.7 Physical Exam Narrative Physical Examination: General: Awake, alert, oriented x 3 and cooperative, seated upright in the bed, fatigued but no acute distress Skin: Normal color, normal turgor, no icterus, no cyanosis except occasional staged ecchymoses as well as significant bilateral lower extremity venous stasis skin changes and mild erythema to the distal lower extremities. HEENT: AT/NC, EOMI, PERRLA, MMM, no carotid bruits, no marked JVD noted. Lungs: Severely diminished, greater bases, mildly increased respiratory rate but no distress, no rales, ronchi or wheezing. Heart: Mildly tachycardic with regular rhythm; no gallop, rub audible. Abdomen: Soft, NTTP, ND, mildly hyperactive BS, no appreciated HSM. Extremities: No cyanosis, no clubbing, bilateral pedal to mid an 1+ pitting edema, see skin. Neurological: Patient awake, alert, oriented as noted, cognitive function intact; pupils equally reactive to light and accommodation, cranial nerves grossly normal, moving all 4 extremities, no focal deficits, strength moderately to severely globally decreased. Psychiatric: Affect appears flat, fatigued, no acute evidence of depressive or anxiety feelings but does have underlying history. Results Lab / Micro Data 11/09/23 16:48 11/09/23 16:48 Labs: Laboratory Results - last 24 hr 11/09/23 16:48: WBC 9.9, RBC 5.22, Hgb 15.5, Hct 49.7, MCV 95.2 H, MCH 29.7, MCHC 31.2 L, RDW Std Deviation 49.8 H, RDW Coeff of Jorge 14.2, Plt Count 254, MPV 10.8, Immature Gran % (Auto) 0.300, Neut % (Auto) 66.5, Lymph % (Auto) 21.9, Frontier % (Auto) 8.7, Eos % (Auto) 2.1, Baso % (Auto) 0.5, Absolute Neuts (auto) 6.5, Absolute Lymphs (auto) 2.16, Nucleated RBC % 0, Sodium 136, Potassium 4.3, Chloride 99, Carbon Dioxide 32.0, Anion Gap 5, BUN 11, Creatinine 0.71, Estim Creat Clear Calc 96.88, Est GFR (MDRD) Af Amer 147, Est GFR (MDRD) Non-Af 121, BUN/Creatinine Ratio 15.6, Glucose 115 H, Calcium 9.3, Troponin I High Sens 84 H, B-Natriuretic Peptide 1114.5 H 11/09/23 19:56: Troponin I High Sens 85 H Micro: Microbiology 11/09/23 16:48 Mucosa - Nasopharyngeal SARS-CoV-2, Influenza & RSV (PCR) - Final Imaging Radiology Impression Chest CTA 11/09/23 16:30 IMPRESSION: No acute abnormalities. Specifically, no evidence of acute pulmonary emboli to the segmental level. 1 cm spiculated soft tissue nodule in the left upper lobe, unchanged in size since 11/17/2022. Per Fleischner criteria, consider additional follow-up chest CT in one year. Electronically Signed: Ryan Parish MD at 19:00 EDT , Assessment & Plan Assessment/Plan (1) Elevated troponin: PLAN: Plan The patient is a 58 y/o M w/ PMHx: HTN, HLD, Hx Lung CA unclear type, Diabetes mellitus type II with Chronic neuropathy, PAF, CAD s/p PCI, Anxiety and Depression, COPD w/ Chronic Hypoxic Respiratory Failure (2.5L NC), Known Pancreatic pseudocyst, tobacco use, BPH who presents to the [facility] ED on 11/09/23 with history of worsening shortness of breath as well as ongoing uncontrolled chronic neuropathy as he has not been on any medication as he has not seen a physician since May with increased lower extremity swelling and right sided chest discomfort with a chronic cough that is unchanged with no recent fevers or chills prompting eventual ED evaluation to be cautious. #1. Chest Pain with indeterminate cardiac enzyme, suspect demand with questionable underlying Acute HF Exacerbation, unclear type: EKG in ED sinus rhythm with no acute evidence of ischemia, CTPA with no acute cardiopulmonary findings with stable appearing 1 cm spiculated soft tissue nodule in the left upper lobe, initial trop 84 with repeat delta 85. Will admit to PCU, will place on a monitored bed to assure no acute myocardial infarction with serial cardiac enzymes and EKGs. Magnesium level requested. TSH requested. FLP in AM. Echocardiogram requested. Will defer heparin drip as troponin is not escalated. Will pulse dose with IV Lasix as uncertain if this is potentially heart failure with notably elevated BNP. To be cautious given lower extremity swelling, redness and discomfort although Doppler pulses were obtained in the ED will obtain LEDY/PVRs. If repeat serial cardiac enzymes remain stable and do not further elevate will pursue cardiac stress testing otherwise may require cardiology consultation. ASA, NG, morphine. #2. Chronic COPD with chronic hypoxic respiratory failure with allergic rhinitis: Will maintain on home chronic 2.5 L nasal cannula supplementation, hold home inhalers in the interim placed on ATC budesonide therapy, PRN albuterol, HOB, IS parameters, continue patient home cetirizine regimen. #3. Lung cancer, unclear type: Patient with reported lung cancer but unclear type and unclear follow-up history and per records appears to be a poor follow-up individual, strongly encouraged follow-up outpatient as previously arranged. Case management consulted as patient needs assistance with rides in order to make these follow-ups. Unclear if #4 is the previous diagnosis or not. #4. Known spiculated soft tissue left upper lobe nodule: CTPA with 1 cm spiculated soft tissue nodule in the left upper lobe reported as unchanged since 11/17/22, encourage continued follow-up chest CT outpatient as previously arranged. #5. Diabetes mellitus type II with chronic neuropathy: Hold oral home regimen, ADA diet, accu checks w/ ISS, per record patient unfortunately is not on any regimen because he failed to follow-up with his physician, given symptoms we will initiate low-dose gabapentin regimen as unfortunately under home medication pharmaceutical previous regimen there is nothing listed. #6. CAD: Status post PCI, will continue aspirin, statin, metoprolol, lisinopril home regimen. #7. PAD: Noted chart history, unclear previous interventions, will maintain on aspirin, statin, metoprolol, lisinopril regimen as noted. Encourage continued outpatient follow-up with vascular surgery as previously arranged. LEDY/PVRs requested for bilateral lower extremities. Patient did have Doppler lower pulses in the ED as well as palpable pulses. #8. Anxiety and depression: We will continue patient home trazodone as well as Cymbalta home regimen. #9. Hypertension: Continue home regimen including Toprol, lisinopril, amlodipine, IV Lasix as noted above, PRN hydralazine. #10. Hyperlipidemia: We will continuation on statin therapy, FLP in AM. #11. Tobacco Abuse: Encouraged cessation, inpatient consultation per RT, NR if desired. #12. BPH: We will continue patient on Flomax regimen. #13. DVT prophylaxis: Lovenox. CODE status: Patient does not have healthcare power of manager clinic or living will in place but he notes a good friend Cecile Gibson would be his medical decision-maker if necessary. Discussed CODE status at length including difference between FULL code, DNR-CCA and DNR-CC status. Following discussions about the differences in these status, requested DNR-CCA, no intubation which was discussed and confirmed. Advanced Care Planning Face to Face Time: 16 minutes. Charges/Coding Visit Charges Inpatient E&M: 80238 Init Hosp L3 Procedures Hospitalists Procedures: 82554 Advncd Care Plan 30 Min
[2023-11-09] MEDS: Ipratropium/Albuterol Sulfate 3 ML AMPUL.NEB INHALATION (21:16)
[2023-11-09] MEDS: Furosemide 40 MG/4 ML Vial IV (22:07)
[2023-11-09] MEDS: Aspirin 325 MG Tablet PO (22:07)
--- NOTE | 2023-11-09 22:10 | ED.RN ---
PT PROVIDED A LIST OF MEDICATIONS BUT IS UNABLE TO CONFIRM IF THESE MEDICATIONS ARE THE CORRECT DOSAGE.
[2023-11-09 22:18] LABS: Magnesium 1.9 mg/dL (1.6-2.6)
--- NOTE | 2023-11-09 22:35 | ART_ITS ---
Reason For Study: Concern PAD Procedure A bilateral lower extremity continuous wave Doppler with analog waveform analysis and ankle brachial indexes. Left Segmental Pressures Left brachial= 143mmHg. Left posterior tibial artery = 153mmHg. Left dorsalis pedis artery = 149mmHg. Left digit = 121 mmHg. The left dorsalis pedis waveforms are triphasic. The left posterior tibial artery waveforms are triphasic. Right Segmental Pressures Right posterior tibial artery = 173mmHg. Right dorsalis pedis artery = 157mmHg. Right digit = 132 mmHg. The right dorsalis pedis waveforms are triphasic. The right posterior tibial artery waveforms are triphasic. Indices The right ankle brachial index by the dorsalis pedis is 1.10. The right ankle brachial index by the posterior tibial artery is 1.21. The right digital-brachial index is 0.92. The left ankle brachial index by the dorsalis pedis is 1.04. The left ankle brachial index by the posterior tibial artery is 1.07. The left digital-brachial index is 0.85. VL/Ankle Brachial Index Interpretation Summary Right LEDY 1.21, normal. TBI and Doppler/PVR waveforms of the right ankle normal at rest. Left LEDY 1.07, normal. TBI and Doppler/PVR waveforms of the left ankle normal a t rest. Ordering Physician: Ange Huffman Referring Physician: Sabra Young Performed By: Silvia Agarwal RDCS/RVT
--- NOTE | 2023-11-09 22:35 | ECHOD_ITS ---
Reason For Study: CHF Procedure This was a 2D Doppler, Color Flow transthoracic echocardiogram. Exam performed in department. Left Ventricle Normal LV size. Concentric left ventricular hypertrophy. The estimated ejection fraction is 55 %. No evidence for diastolic dysfunction. No regional wall motion abnormalities noted. Right Ventricle Mildly dilated right ventricle. Normal systolic function. Atria The left and right atria are normal. No doppler evidence for ASD. Mitral Valve There is no mitral valve stenosis. No mitral valve insufficiency. Tricuspid Valve There is no tricuspid stenosis. Unable to estimate RV systolic pressure due to inadequate jet, pulmonary artery pressure probably normal. Aortic Valve Trisinus/trileaflet aortic valve. Aortic sclerosis, no stenosis. There is no aortic stenosis. No aortic valve insufficiency. Pulmonic Valve There is no pulmonic valvular stenosis. No pulmonic valve insufficiency. Great Vessels Normal aortic root. Pericardium/Pleural No pericardial effusion. MMode/2D Measurements & Calculations LVIDd: 3.9 cm IVSd: 1.3 cm LVOT diam: 2.1 cm LVIDs: 3.6 cm LVPWd: 1.7 cm LVOT area: 3.3 cm2 RVDd: 4.0 cm FS: 8.4 % LAV(MOD-sp4): 56.4 ml LA A4 area: 19.9 cm2 LA dimension(2D): 3.4 cm RA A4 area: 20.7 cm2 Time Measurements MV dec time: 0.21 sec Doppler Measurements & Calculations MV E max clinton: 56.3 cm/sec Lat Peak E' Clinton: 4.1 cm/sec Med Peak E' Clinton: 4.4 cm/sec MV A max clinton: 61.9 cm/sec E/E' lat: 13.7 E/E' med: 12.9 MV E/A: 0.91 MV dec slope: 263.1 cm/sec2 Ao V2 max: 85.8 cm/sec LV V1 max: 66.4 cm/sec Ao max P.9 mmHg LV V1 max P.8 mmHg Ao V2 mean: 48.7 cm/sec LV V1 mean P.57 mmHg Ao mean P.2 mmHg LV V1 mean: 32.4 cm/sec Ao V2 VTI: 17.0 cm LV V1 VTI: 11.5 cm AV (velocity ratio): 0.67 DAISY(I,D): 2.2 cm2 DAISY(V,D): 2.6 cm2 SV(LVOT): 38.3 ml PA V2 max: 80.9 cm/sec PA V2 mean: 59.9 cm/sec ECHO/Echo Complete Interpretation Summary The estimated ejection fraction is 55 %. No evidence for diastolic dysfunction. Ordering Physician: Ange Huffman Referring Physician: DEVONTE DOS SANTOS Performed By: Jenna Batista RCS
[2023-11-09] MEDS: Metoprolol Tartrate 25 MG Tablet PO (23:29)
[2023-11-09] MEDS: Famotidine 20 MG Tablet PO (23:29)
[2023-11-09] MEDS: Gabapentin 100 MG Capsule PO (23:29)
[2023-11-09 23:35] LABS: Troponin-I HS 76 pg/mL (3.0-78.0)
[2023-11-09] MEDS: Insulin Lispro 100 UNIT/ML INSULN.PEN SC (23:36)
[2023-11-09 23:40] LABS: Procalcitonin 0.06 ng/mL (0.00-0.09)
[2023-11-10] VITALS (15 sets, daily range): BP systolic 106–164; BP diastolic 64–101; PULSE 61–88; RESP 14–24; TEMP 35.9–37; O2SAT 82–100; BMI 21.2
[2023-11-10 02:17] LABS: Bedside Glucose 252 mg/dL (74-106)
--- NOTE | 2023-11-10 05:55 | EKG12_ITS ---
Test Reason : PCI Blood Pressure : / mmHG Vent. Rate : 073 BPM Atrial Rate : 073 BPM P-R Int : 132 ms QRS Dur : 078 ms QT Int : 422 ms P-R-T Axes : 070 121 103 degrees QTc Int : 464 ms Sinus rhythm with occasional Premature ventricular complexes Right Donahue Nonspecific ST and T wave abnormality Prolonged QT Abnormal ECG When compared with ECG of 10-NOV-2023 03:41, MANUAL COMPARISON REQUIRED, DATA IS UNCONFIRMED Confirmed by Sam Zavala ([id number]), rewrite editor SHENA NUNES ([id number]) on 11/13/2023 1:23:45 PM Referred By: SHY Confirmed By:Sam Zavala
[2023-11-10 06:34] LABS: Absolute Neutrophil Count 5.5 X10^3/uL (2.0-7.7); Basophil# 0.06 X10^3/uL; Basophil% 0.6 % (0-1); Eosinophil# 0.29 X10^3/uL; Eosinophils% 3.1 % (0-5); Hematocrit 48.1 % (40-54); Lymphocyte % 25.7 % (19-41); Mean Corp Hgb Conc 31.2 g/dL (32-36); Mean Corpuscular Hgb 29.9 pg (27.0-32.0); Mean Platelet Vol. 10.5 fl (6.2-12.0); Monocyte# 1.05 X10^3/uL; Monocyte% 11.2 % (0-10); NRBC Flagged by Analyzer 0 % (0-5); Neutrophil # 5.52 X10^3/uL (2.7-7.7); Neutrophil % 59.1 % (47-70); Platelet Count 249 K/mm3 (150-450); RBC Distribution Width CV 14.2 % (11.6-14.6); RBC Distribution Width SD 50.3 fl (35.1-43.9); Red Blood Count 5.01 M/mm3 (4.6-6.2); White Blood Count 9.4 K/mm3 (4.4-11.0)
[2023-11-10] MEDS: amLODIPine 10 MG Tablet PO (06:46)
[2023-11-10] MEDS: Lisinopril 20 MG Tablet PO (06:46)
[2023-11-10] MEDS: Aspirin 81 MG TAB.CHEW PO (06:46)
[2023-11-10 07:04] LABS: AST(SGOT) 27 U/L (15-37); Alanine Aminotransfer ALT/SGPT 35 U/L (16-61); Albumin, Serum 3.1 g/dL (3.2-5.0); Alkaline Phosphatase 90 U/L (45-117); Anion Gap 6 (5-15); BUN 15 mg/dL (7-18); BUN/Creat Ratio 19.1 RATIO (10-20); Calcium,Total 8.8 mg/dL (8.5-10.1); Chloride 98 mmol/L (98-107); Cholesterol 182 mg/dL (200); Creatinine, Serum 0.79 mg/dL (0.70-1.30); EST Glomerular Filtration Rate 107 mL/min (>60); Est Glom Filt Rate - Afr Amer 130 mL/min (>60); Estimated Creatinine Clearance 84.87 ml/min; Globulin 3.2 g/dL (2.2-4.2); Glucose 110 mg/dL (74-106); High Density Lipoprotein 83 mg/dL; Potassium 4.3 mmol/L (3.5-5.1); Protein, Total 6.3 g/dL (6.4-8.2); Sodium Level 137 mmol/L (136-145); Thyroid Stim Hormone (TSH) 0.854 uIU/mL (0.358-3.740); Triglycerides 91 mg/dL; Very Low Density Lipoprotein 18 mg/dL (5-40)
[2023-11-10 07:07] LABS: Bedside Glucose 107 mg/dL (74-106)
[2023-11-10 08:33] LABS: Hemoglobin A1c 6.3 % (3.8-5.6)
--- NOTE | 2023-11-10 10:34 | PN.HOSP_ITS ---
Reason for Visit Reason for Visit: Diagnoses Other specified abnormal findings of blood chemistry (11/09/23) Objective Data Objective Data Vital Signs: Vital Signs Temp Pulse Resp BP Pulse Ox O2 Del Method O2 Flow Rate 97.0 F L 79 18 134/86 H 99 Nasal Cannula 4 11/10/23 03:30 11/10/23 03:30 11/10/23 03:30 11/10/23 03:30 11/10/23 03:30 11/10/23 07:57 11/10/23 03:30 Oxygen Flow Rate (L/min) 4 Oxygen Delivery Method Nasal Cannula Weight: 131 lb 6.328 oz Body Mass Index (BMI) 21.2 Intake & Output: Intake and Output for Last 24 Hours 11/08/23 11/09/23 11/10/23 23:59 23:59 23:59 Intake Total 0 / 0 Output Total 650 / 650 Balance -650 / -650 Lab / Micro Data 11/10/23 06:04 11/10/23 06:04 Labs: Laboratory Results - last 24 hr 11/09/23 16:48: WBC 9.9, RBC 5.22, Hgb 15.5, Hct 49.7, MCV 95.2 H, MCH 29.7, M CHC 31.2 L, RDW Std Deviation 49.8 H, RDW Coeff of Jorge 14.2, Plt Count 254, MPV 10.8, Immature Gran % (Auto) 0.300, Neut % (Auto) 66.5, Lymph % (Auto) 21.9, [place] % (Auto) 8.7, Eos % (Auto) 2.1, Baso % (Auto) 0.5, Absolute Neuts (auto) 6.5, Absolute Lymphs (auto) 2.16, Nucleated RBC % 0, Sodium 136, Potassium 4.3, Chloride 99, Carbon Dioxide 32.0, Anion Gap 5, BUN 11, Creatinine 0.71, Estim Creat Clear Calc 96.88, Est GFR (MDRD) Af Amer 147, Est GFR (MDRD) Non-Af 121, BUN/Creatinine Ratio 15.6, Glucose 115 H, Calcium 9.3, Troponin I High Sens 84 H , B-Natriuretic Peptide 1114.5 H 11/09/23 19:56: Magnesium 1.9, Troponin I High Sens 85 H 09/19/24 23:07: Troponin I High Sens 76, Procalcitonin 0.06 11/09/23 23:31: POC Glucose 252 H 11/10/23 06:04: WBC 9.4, RBC 5.01, Hgb 15.0, Hct 48.1, MCV 96.0 H, MCH 29.9, M CHC 31.2 L, RDW Std Deviation 50.3 H, RDW Coeff of Jorge 14.2, Plt Count 249, MPV 10.5, Immature Gran % (Auto) 0.300, Neut % (Auto) 59.1, Lymph % (Auto) 25.7, M sonia % (Auto) 11.2 H, Eos % (Auto) 3.1, Baso % (Auto) 0.6, Absolute Neuts (auto) 5.5, Absolute Lymphs (auto) 2.40, Nucleated RBC % 0, Sodium 137, Potassium 4.3, Chloride 98, Carbon Dioxide 33.0 H, Anion Gap 6, BUN 15, Creatinine 0.79, Estim Creat Clear Calc 84.87, Est GFR (MDRD) Af Amer 130, Est GFR (MDRD) Non-Af 107, BUN/Creatinine Ratio 19.1, Glucose 110 H, Hemoglobin A1c 6.3 H, Calcium 8.8, Total Bilirubin 0.20, AST 27, ALT 35, Alkaline Phosphatase 90, Total Protein 6.3 L, Albumin 3.1 L, Globulin 3.2, Albumin/Globulin Ratio 1.0, Triglycerides 91, Cholesterol 182, LDL Cholesterol 81, VLDL Cholesterol 18, HDL Cholesterol 83, TSH 0.854 11/10/23 06:49: POC Glucose 107 H Micro: Microbiology 11/09/23 16:48 Mucosa - Nasopharyngeal SARS-CoV-2, Influenza & RSV (PCR) - Final Radiography Diagnostic Testing: Radiology Impression Chest CTA 11/09/23 16:30 IMPRESSION: No acute abnormalities. Specifically, no evidence of acute pulmonary emboli to the segmental level. 1 cm spiculated soft tissue nodule in the left upper lobe, unchanged in size since 11/17/2022. Per Fleischner criteria, consider additional follow-up chest CT in one year. Electronically Signed: Ryan Parish MD at 19:00 EDT , Assessment & Plan Assessment/Plan (1) Elevated troponin: PLAN: Plan The patient is a 58 y/o M admitted with worsening shortness of breath, chest pain mainly on bending down with diaphoresis. Mild lower extremity swelling with chronic neuropathy and PAD 1. Chest pain most likely due to unstable angina/non-STEMI: Patient is being admitted in PCU. Troponin elevated. BNP elevated. Patient had stress test which shows evidence of possible mild inferior ischemia EF 49%. 2D echo shows EF 55% with no evidence of diastolic dysfunction. Discussed with the sustainability project coordinator Dr. Moore and patient will be taken for cardiac Ophthalmic Asst. Lipid profile within normal limit. TSH 0.854 low normal. Free T4 ordered. Triple PCR for SARS-CoV-2, flu and RSV are negative. CTA chest negative for PE to the segmental level. No acute abnormality 2. PAD/chronic neuropathy of lower extremities: Patient states her lower leg specially foot are cold, cold ID/dusky hold. Patient also gets claudication pain on walking/going up stairs and takes 3 to 4-hour to go away. LEDY/PVR ordered 3. COPD with chronic hypoxic respiratory failure with allergic rhinitis: on home chronic 2.5 L nasal cannula supplementation, DuoNeb as needed. On broadened ascites schedule. Mucinex DM ordered. Does not seem to be in COPD exacerbation 4. Lung cancer, unclear type: Chest CT scan shows 1 cm spiculated soft tissue nodule in the left upper lobe unchanged in size from 11/09/2022. Recommended stat CT in 1 year #5. Diabetes mellitus type II with chronic neuropathy. A1c 6.3. Glucose 115 in the morning and BMP. Glucose 250 in Accu-Chek. Accu-Chek before meals and at bedtime with Humalog sliding scale coverage and hypoglycemia protocol. #6. CAD: Status post PCI, continue aspirin, statin, metoprolol, lisinopril home regimen. 7. Anxiety and depression: continue patient home trazodone as well as Cymbalta home regimen. 8. Hypertension: Continue home regimen including Toprol, lisinopril, amlodipine, IV Lasix as noted above, PRN hydralazine. 9. Hyperlipidemia: We will continuation on statin therapy, fasting profile in normal limit. #10. Chronic cigarette smoking/tobacco Abuse: Encouraged cessation, inpatient consultation per RT, NR if desired. #11 BPH: We will continue patient on Flomax regimen. DVT prophylaxis: Lovenox. 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 Discussed CODE status at length including difference between FULL code, DNR-CCA and DNR-CC status. Following discussions about the differences in these status, requested DNR-CCA, no intubation which was discussed and confirmed. Laboratory Results 11/09/23 16:48: WBC 9.9, RBC 5.22, Hgb 15.5, Hct 49.7, MCV 95.2 H, MCH 29.7, M CHC 31.2 L, RDW Std Deviation 49.8 H, RDW Coeff of Jorge 14.2, Plt Count 254, MPV 10.8, Immature Gran % (Auto) 0.300, Neut % (Auto) 66.5, Lymph % (Auto) 21.9, [place] % (Auto) 8.7, Eos % (Auto) 2.1, Baso % (Auto) 0.5, Absolute Neuts (auto) 6.5, Absolute Lymphs (auto) 2.16, Nucleated RBC % 0, Sodium 136, Potassium 4.3, Chloride 99, Carbon Dioxide 32.0, Anion Gap 5, BUN 11, Creatinine 0.71, Estim Creat Clear Calc 96.88, Est GFR (MDRD) Af Amer 147, Est GFR (MDRD) Non-Af 121, BUN/Creatinine Ratio 15.6, Glucose 115 H, Calcium 9.3, Troponin I High Sens 84 H , B-Natriuretic Peptide 1114.5 H 11/09/23 19:56: Magnesium 1.9, Troponin I High Sens 85 H 11/09/23 23:07: Troponin I High Sens 76, Procalcitonin 0.06 11/09/23 23:31: POC Glucose 252 H 11/10/23 06:04: WBC 9.4, RBC 5.01, Hgb 15.0, Hct 48.1, MCV 96.0 H, MCH 29.9, M CHC 31.2 L, RDW Std Deviation 50.3 H, RDW Coeff of Jorge 14.2, Plt Count 249, MPV 10.5, Immature Gran % (Auto) 0.300, Neut % (Auto) 59.1, Lymph % (Auto) 25.7, M sonia % (Auto) 11.2 H, Eos % (Auto) 3.1, Baso % (Auto) 0.6, Absolute Neuts (auto) 5.5, Absolute Lymphs (auto) 2.40, Nucleated RBC % 0, Sodium 137, Potassium 4.3, Chloride 98, Carbon Dioxide 33.0 H, Anion Gap 6, BUN 15, Creatinine 0.79, Estim Creat Clear Calc 84.87, Est GFR (MDRD) Af Amer 130, Est GFR (MDRD) Non-Af 107, BUN/Creatinine Ratio 19.1, Glucose 110 H, Hemoglobin A1c 6.3 H, Calcium 8.8, Total Bilirubin 0.20, AST 27, ALT 35, Alkaline Phosphatase 90, Total Protein 6.3 L, Albumin 3.1 L, Globulin 3.2, Albumin/Globulin Ratio 1.0, Triglycerides 91, Cholesterol 182, LDL Cholesterol 81, VLDL Cholesterol 18, HDL Cholesterol 83, TSH 0.854 11/10/23 06:49: POC Glucose 107 H Clinical Impression(s) from Imaging Studies Chest CTA 11/09/23 16:30 IMPRESSION: No acute abnormalities. Specifically, no evidence of acute pulmonary emboli to the segmental level. 1 cm spiculated soft tissue nodule in the left upper lobe, unchanged in size since 11/17/2022. Per Fleischner criteria, consider additional follow-up chest CT in one year. Echocardiogram 11/09/23 22:35 Interpretation Summary The estimated ejection fraction is 55 %. No evidence for diastolic dysfunction. Charges/Coding Addendum Addendum: Total time of the visit including total time spent in counseling or coordination of care, (more than 50% of the total time, spent in obtaining medical information from nurses and other ancillary care providers,explaining to the patient about labs, imaging, diagnosis and management of active complex medical conditions), management of non-STEMI, PAD, COPD, lung cancer, discussion with cardiology, review of labs and imaging is 35 minutes. Visit Charges Inpatient E&M: 94487 Subs Hosp L3
[2023-11-10] MEDS: Furosemide 40 MG/4 ML Vial IV (11:19)
[2023-11-10] MEDS: Tamsulosin HCl 0.4 MG Capsule PO (11:20)
[2023-11-10] MEDS: Loratadine 10 MG Tablet PO (11:20)
[2023-11-10] MEDS: Metoprolol Tartrate 25 MG Tablet PO (11:20)
[2023-11-10] MEDS: Famotidine 20 MG Tablet PO ×2 (11:20→22:42)
[2023-11-10] MEDS: DULoxetine Hcl 30 MG Capsule PO (11:21)
--- NOTE | 2023-11-10 12:23 | CASEMGMT ---
MARIAH CONNOLLY Assessment Face to Face with patient for initial transition planning/care coordination assessment. MARIAH CONNOLLY introduced self and role at [facility], pt voices understanding. Pt is A&Ox4 and is resting comfortably in bed and is calm. Care providers, pharmacy, and demographics verified. Admitting dx: Dyspnea, HF LACE Strata: 2 PCP: Sabra Young Specialists: Denies [facility]erred [facility] Prescription Benefit: Yes LNOK: Jean-Paul Freewalt (Lakesha) Living Arrangements: Pt lives alone in a single story home with 3 steps to enter ADLs/IADLs: States ind at baseline Transportation: Pt states that he does not drive. Pt states that his friends and neighbors provide transportation and denies concerns at this time DME: Home oxygen through [employer]. Pt states that he wears 2.5 L at home. E-Mail sent to [employer] to verify current Rx. Pt states that he has a concentrator, portable tanks (pt has one in the room), and pulse ox. Pt also reports that he has a nebulizer, cane, FWW, and BP Monitor. HHC/SNF: Denies history Pt?s goal: Return to PLOF Plan: TBD. Anticipate HHC vs SNF. Pt states that he would like to go to a SNF for further rehab. Pt educated about insurance and PT/OT. Per PT, PT is to evaluate tomorrow. If pt does DC home, pt states that he would like HHC. CM and SW to follow. Rosalva Schwab RN, CM
--- NOTE | 2023-11-10 12:28 | STRESSREP_ITS ---
Stress Test Report Date: 11/10/2023 Procedure: Pharmacologic stress nuclear imaging study Indications: Chest pain Consent: Per the patient Procedure: The patient underwent pharmacologic (Regadenoson) evaluation with a peak heart rate of 95 beats per minute (59%predicted maximal heart rate) and a peak blood pressure of 154/88 mmHg. The baseline ECG demonstrated normal sinus rhythm, prior anterior FL. EKG during lexiscan infusion revealed no significant ischemic changes. EKG post infusion revealed no significant ischemic changes [There were no cardiac dysrhythmias pretest, during pharmacologic infusion, or recovery]. [There was no complaint of chest discomfort during pharmacologic infusion or recovery]. The examination was discontinued secondary to completion of protocol. Impression: 1. Lexiscan stress test test is negative for Lexiscan infusion induced EKG changes of ischemia. 2. Lexiscan stress test test is negative for Lexiscan infusion induced chest pain. 3. Results of the nuclear portion of the test is as below Myocardial perfusion imaging study: Technique: The patient was injected with 12 millicuries of technetium 99m Cardiolite and subsequently rest SPECT Cardiolite nuclear imaging was obtained in the horizontal long, vertical long, and short axis views. The patient underwent pharmacologic [Regadenoson 0.4mg] evaluation. Please see above for details. The patient was injected with 36 millicuries of technetium 99m Cardiolite and subsequently stress SPECT Cardiolite nuclear imaging was obtained in the horizontal long, vertical long, and short axis views. A gated Cardiolite study at peak stress was obtained. Interpretation: Rest and stress SPECT Cardiolite nuclear imaging status post realignment, normalization, and attenuation correction demonstrate mildly decreased radioisotope uptake in the inferior wall on the rest images that improves with attenuation correction. On the stress images there is further decrease in the persists more than in the rest images in the attenuation corrected stress images. These findings are suggestive of mild inferior ischemia. Gated images reveal no significant regional wall motion abnormalities. The reported LVEF is 49%. Impression: 1. There is evidence of possible mild inferior ischemia. 2. Estimated ejection fraction is 49%. This note was generated with [employer] software. It may contain incorrect words, spelling, and punctuation that were not noted in checking the note before signing.
--- NOTE | 2023-11-10 12:33 | CASEMGMT ---
Discharge Planning A list of?HH providers including quality and resource use data and consistent with the patient's preferred geographic region, medical needs, and insurance network was created in [employer] Guide.? This list was provided to the RN CATHLEEN. Lynda Harley, Discharge Planning Asst.
[2023-11-10] MEDS: Gabapentin 100 MG Capsule PO (13:15)
--- NOTE | 2023-11-10 15:40 | CON.PCM.CA_ITS ---
Assessment & Plan Assessment/Plan (1) Elevated troponin: PLAN: Stress test was abnormal as well. Will proceed with coronary angiography. Risks and benefits discussed with the patient in detail. Patient is willing to proceed. (2) Chest pain: QUALIFIERS: Chest pain type: other chest pain Qualified Code(s): R07.89 - Other chest pain HPI Consult Data Date of Consult: 11/10/23 HPI Narrative Reason for Consultation: Abnormal stress test HPI Narrative: KELLY CASTRO, is a 58 M who presents with shortness of breath, leg edema and chest discomfort. He has history of PA in 2008 treated at [facility] with a stent to the LAD according to the patient. Patient was admitted to the PCU and was diuresed. His edema has gone down but patient feels that if he stands up he will end up getting lower extremity swelling. Chest pain is retrosternal, pressure-like brought on with exertion. He says it is somewhat similar to what he had prior to his PA but at that time it was much worse. Patient had a stress test today that was suspicious for inferior ischemia. Review of systems: All systems reviewed. All others negative except as in HPI [facility] Medical History Anxiety and depression Lung cancer Chronic hypoxic respiratory failure, on home oxygen therapy PAD (peripheral artery disease) Coronary artery disease BPH (benign prostatic hyperplasia) Tobacco use disorder Pancreatic pseudocyst/cyst Myocardial infarction Neuropathy Hypertension COPD (chronic obstructive pulmonary disease) Pancreatic pseudocyst Lung cancer Home Medications ?Medication ?Instructions ?Recorded ?Last Taken ?Type miscellaneous medical supply #1 ea 04/04/23 Unknown Rx (Blood Pressure Cuff) albuterol sulfate 90 mcg/actuation 2 puff inhalation .COMPLEX ask pcp 05/09/23 Unknown Rx aerosol inhaler #6.7 grams amlodipine 10 mg tablet 10 mg PO DAILY ask pcp #30 tabs 05/09/23 Unknown Rx atorvastatin 40 mg tablet 40 mg PO DAILY #30 tabs 05/09/23 Unknown Rx tamsulosin 0.4 mg capsule 0.4 mg PO DAILY #30 caps 05/09/23 Unknown Rx aspirin 81 mg chewable tablet 81 mg PO DAILY@0800 #30 tabs 05/12/23 Unknown Rx cetirizine 10 mg tablet (All Day 10 mg PO DAILY #30 tabs 05/12/23 Unknown Rx Allergy (cetirizine)) lisinopril 20 1 tab PO DAILY ask pcp #30 tabs 05/12/23 Unknown Rx mg-hydrochlorothiazide 25 mg tablet budesonide 180 mcg/actuation 2 inh inhalation BID #1 ea 05/16/23 Unknown Rx breath activated powder inhaler formoterol fumarate 20 mcg/2 mL 2 ml inhalation Q12H #120 mL 05/16/23 Unknown Rx solution for nebulization blood sugar diagnostic (Blood #50 ea 05/17/23 Unknown Rx Glucose Test strips) blood-glucose meter (Blood Glucose #1 ea 05/17/23 Unknown Rx Monitoring kit) lancets (Fingerstix Lancets) #100 ea 05/17/23 Unknown Rx metformin 500 mg tablet 500 mg PO DAILY #90 tabs 05/17/23 Unknown Rx metoprolol tartrate 25 mg tablet 25 mg PO BID ask pcp #60 tabs 05/19/23 Unknown Rx aspirin 81 mg tablet,delayed 81 mg PO DAILY health maintenance 11/09/23 Unknown History release (Adult Low Dose Aspirin) buspirone .ROUTE ask pcp 11/09/23 Unknown History colestipol 1 gram tablet 1 g PO BID ask pcp 11/09/23 Unknown History duloxetine 60 mg capsule,delayed 60 mg PO DAILY depression 11/09/23 Unknown History release (Cymbalta) folic acid 1 mg tablet 1 mg PO DAILY health maintenance 11/09/23 Unknown History hydroxyzine HCl 50 mg tablet 50 mg PO Q4H PRN ask pcp 11/09/23 Unknown History omeprazole 20 mg capsule,delayed 20 mg PO DAILY ask pcp 11/09/23 Unknown History release paroxetine HCl 40 mg tablet 40 mg PO DAILY ask pcp 11/09/23 Unknown History pravastatin 20 mg tablet 20 mg PO DAILY ask pcp 11/09/23 Unknown History trazodone 100 mg tablet 200 mg PO QHS ask pcp 11/09/23 Unknown History Allergy/AdvReac Type Severity Reaction Status Date / Time No Known Allergies Allergy Verified 11/09/23 13:46 Family History Father Cancer PROSTATE Thyroid disorder Mother Hypertension Cancer GYNECOLOGICAL Grandfather Hypertension Brother Cancer PROSTATE Hypertension Surgical History History of hernia surgery Previous back surgery History of shoulder surgery History of heart artery stent Social History household members: none other: Patient with significant transportation issues and no phone available on a Smoking Status: Current every day smoker tobacco type: cigarettes how long ago did patient quit smoking: Currently 1 pack of cigarettes daily but previously 2 packs alcohol intake: former substance use type: does not use and former substance user what type of physical activity do you participate in: none seatbelt use: always do you feel safe at home: Yes Physical Exam Const alert and oriented x3 HEENT normocephalic Eyes no scleral icterus Resp normal respiratory effort Cardio regular rate Extremity no pedal edema Skin no rashes or lesions noted Risk Stratification Risk Stratification Applicable: No Charges/Coding Visit Charges Inpatient E&M: 40819 Init Hosp L2 Objective Data Vital Signs: Vital Signs Temp Pulse Resp BP Pulse Ox O2 Del Method O2 Flow Rate 98.6 F 88 16 164/89 H 99 Nasal Cannula 4 11/10/23 11:25 11/10/23 11:25 11/10/23 11:25 11/10/23 11:25 11/10/23 11:25 11/10/23 14:00 11/10/23 11:25 Oxygen Flow Rate (L/min) 4 Oxygen Delivery Method Nasal Cannula Weight: 131 lb 6.328 oz Body Mass Index (BMI) 21.2 Intake & Output: Intake and Output for Last 24 Hours 11/08/23 11/09/23 11/10/23 23:59 23:59 23:59 Intake Total 480 / 480 Output Total 1850 / 1850 Balance -1370 / -1370 Lab / Micro Data 11/10/23 06:04 11/10/23 06:04 Labs: Laboratory Results - last 24 hr 11/09/23 16:48: WBC 9.9, RBC 5.22, Hgb 15.5, Hct 49.7, MCV 95.2 H, MCH 29.7, M CHC 31.2 L, RDW Std Deviation 49.8 H, RDW Coeff of Jorge 14.2, Plt Count 254, MPV 10.8, Immature Gran % (Auto) 0.300, Neut % (Auto) 66.5, Lymph % (Auto) 21.9, [place] % (Auto) 8.7, Eos % (Auto) 2.1, Baso % (Auto) 0.5, Absolute Neuts (auto) 6.5, Absolute Lymphs (auto) 2.16, Nucleated RBC % 0, Sodium 136, Potassium 4.3, Chloride 99, Carbon Dioxide 32.0, Anion Gap 5, BUN 11, Creatinine 0.71, Estim Creat Clear Calc 96.88, Est GFR (MDRD) Af Amer 147, Est GFR (MDRD) Non-Af 121, BUN/Creatinine Ratio 15.6, Glucose 115 H, Calcium 9.3, Troponin I High Sens 84 H , B-Natriuretic Peptide 1114.5 H 11/09/23 19:56: Magnesium 1.9, Troponin I High Sens 85 H 11/09/23 23:07: Troponin I High Sens 76, Procalcitonin 0.06 11/09/23 23:31: POC Glucose 252 H 11/10/23 06:04: WBC 9.4, RBC 5.01, Hgb 15.0, Hct 48.1, MCV 96.0 H, MCH 29.9, M CHC 31.2 L, RDW Std Deviation 50.3 H, RDW Coeff of Jorge 14.2, Plt Count 249, MPV 10.5, Immature Gran % (Auto) 0.300, Neut % (Auto) 59.1, Lymph % (Auto) 25.7, M sonia % (Auto) 11.2 H, Eos % (Auto) 3.1, Baso % (Auto) 0.6, Absolute Neuts (auto) 5.5, Absolute Lymphs (auto) 2.40, Nucleated RBC % 0, Sodium 137, Potassium 4.3, Chloride 98, Carbon Dioxide 33.0 H, Anion Gap 6, BUN 15, Creatinine 0.79, Estim Creat Clear Calc 84.87, Est GFR (MDRD) Af Amer 130, Est GFR (MDRD) Non-Af 107, BUN/Creatinine Ratio 19.1, Glucose 110 H, Hemoglobin A1c 6.3 H, Calcium 8.8, Total Bilirubin 0.20, AST 27, ALT 35, Alkaline Phosphatase 90, Total Protein 6.3 L, Albumin 3.1 L, Globulin 3.2, Albumin/Globulin Ratio 1.0, Triglycerides 91, Cholesterol 182, LDL Cholesterol 81, VLDL Cholesterol 18, HDL Cholesterol 83, TSH 0.854 11/10/23 06:49: POC Glucose 107 H Micro: Microbiology 11/09/23 16:48 Mucosa - Nasopharyngeal SARS-CoV-2, Influenza & RSV (PCR) - Final Cardiology Labs/Tests 11/09/23 16:48: WBC 9.9, RBC 5.22, Hgb 15.5, Hct 49.7, MCV 95.2 H, MCH 29.7, M CHC 31.2 L, Plt Count 254, MPV 10.8, Immature Gran % (Auto) 0.300, Neut % (Auto) 66.5, Lymph % (Auto) 21.9, [place] % (Auto) 8.7, Eos % (Auto) 2.1, Baso % (Auto) 0.5, Absolute Neuts (auto) 6.5, Nucleated RBC % 0, Sodium 136, Potassium 4.3, Chloride 99, Carbon Dioxide 32.0, Anion Gap 5, BUN 11, Creatinine 0.71, Est GFR (MDRD) Af Amer 147, Est GFR (MDRD) Non-Af 121, BUN/Creatinine Ratio 15.6, G lucose 115 H, Calcium 9.3, B-Natriuretic Peptide 1114.5 H 11/09/23 19:56: Magnesium 1.9 11/10/23 06:04: WBC 9.4, RBC 5.01, Hgb 15.0, Hct 48.1, MCV 96.0 H, MCH 29.9, M CHC 31.2 L, Plt Count 249, MPV 10.5, Immature Gran % (Auto) 0.300, Neut % (Auto) 59.1, Lymph % (Auto) 25.7, [place] % (Auto) 11.2 H, Eos % (Auto) 3.1, Baso % (Auto) 0.6, Absolute Neuts (auto) 5.5, Nucleated RBC % 0, Sodium 137, Potassium 4.3, Chloride 98, Carbon Dioxide 33.0 H, Anion Gap 6, BUN 15, Creatinine 0.79, Est GFR (MDRD) Af Amer 130, Est GFR (MDRD) Non-Af 107, BUN/Creatinine Ratio 19.1, G lucose 110 H, Hemoglobin A1c 6.3 H, Calcium 8.8, Total Bilirubin 0.20, Triglycerides 91, Cholesterol 182, LDL Cholesterol 81, VLDL Cholesterol 18, HDL Cholesterol 83 Rhythm: EKG: ECHO: Stress Test: Cardiac Cath: PCI: CT Surgery: Holter monitor: EPS: PPM: CXR: Chest CT Scan: Radiography Diagnostic Testing: Radiology Impression Chest CTA 11/09/23 16:30 IMPRESSION: No acute abnormalities. Specifically, no evidence of acute pulmonary emboli to the segmental level. 1 cm spiculated soft tissue nodule in the left upper lobe, unchanged in size since 11/17/2022. Per Fleischner criteria, consider additional follow-up chest CT in one year. Electronically Signed: Ryan Parish MD at 19:00 EDT , Echocardiogram 11/09/23 22:35 Interpretation Summary The estimated ejection fraction is 55 %. No evidence for diastolic dysfunction. Ordering Physician: Ange Huffman Referring Physician: DEVONTE DOS SANTOS Performed By: Jenna Batista RCS
--- NOTE | 2023-11-10 17:14 | CRPHASE1_ITS ---
Patient Communication Patient Information Former Patient:: Phase I PHII Cardiac Rehab Discussed with Patient:: Yes Guide to Cardiac Rehab Given to Patient:: Yes Cardiac Rehab Facility Choice List Given to Patient:: Yes Communication to Cardiac Rehab Choice Program [facility] PHII:: Communication Given to CR Shingle Grader:: Kervin Moore Phase II Cardiac Rehab:: Yes Sessions:: 36 sessions - 3 days/wk, 12 weeks Cardiac Rehabilitation Info Program Information Cardiac Rehabilitation Program Information: Cardiac Rehab The cardiac rehab team at [facility] consists of highly skilled exercise physiologists, nurses, respiratory therapists and physicians working together with you. Our purpose is to help you have a full recovery and achieve the goals you set for yourself. Over the years many of our patients have returned to activities they assumed they would never do again! We can help restore your confidence and motivation to make lifestyle changes that can have a significant impact on your health and quality of life! We can help answer questions and concerns you may have about exercise, lifestyle, medications, diet, stress and anxiety which are common following a hospitalization. WE monitor ECG and vital signs during exercise and discuss your progress with you and report to your physician(s). Cardiac Rehab is proven to help reduce readmissions, improve functional capacity and lower recurrence of problems with your heart. Our Cardiac Rehab program is Certified by the [place] [employer]-V[employer] Pulmonary [employer] (AACVPR) and Accredited by the [place] [employer] through our [facility]. You can contact us at . We invite you to call us with your questions or to get started in our program. If you have other questions or concerns be sure to ask your physician/provider during your follow-up visit. WE look forward to seeing you!
--- NOTE | 2023-11-10 17:15 | CRPH1.INSTRU ---
General Education Discussed with Patient CAD and cardiac anatomy and function:: Patient communicates acknowledgment Explanation of diagnoses and procedures:: Patient communicates acknowledgment Sign/Symptoms of KS:: Patient communicates acknowledgment Antiplatelet therapy: Patient communicates acknowledgment Proper use of NTG-SL: Patient communicates acknowledgment Emergency procedures and activation of EMS: Patient communicates acknowledgment Compliance of all prescribed medications: Patient communicates acknowledgment Smoking Risk Factors Patient Nicotine/Smoking Risk Factors Are:: Cigarettes Recommendations Recommendations Include:: Smoking cessation strategies/Smoking packet Response Code Nicotine/Smoking Response Code:: Patient communicates acknowledgment Dyslipidemia Risk Factors Patient Dyslipidemia Risk Factors Are:: Total Cholesterol, Triglycerides, HDL and LDL Recommendations Recommendations Include:: Lipid profile provided Response Code Dyslipidemia Response Code:: Patient communicates acknowledgment Hypertension Recommendations Recommendations Include:: Maintain BP <130/85, Decrease/maintain normal body weight and Moderation of ETOH Response Code Hypertension:: Patient communicates acknowledgment Heart Disease Risk Factors Patient Heart Disease Risk Factors Are:: Previous cardiac event Recommendations Recommendations Include:: Educated family members of their risk Response Code Heart Disease Response Code:: Patient communicates acknowledgment Sedentary Risk Factors Patient Sedentary Risk Factors Are:: Lack of regular exercise Recommendations Recommendations Include:: Aerobic exercise 5-7 times/week for 20-30 minutes continuously, Benefits of regular exercise, Discussed home walking program and Monitored Outpatient Cardiac Rehab Response Code Sedentary Response Code:: Patient communicates acknowledgment
--- NOTE | 2023-11-10 17:30 | EKG12_ITS ---
Test Reason : AM EKG Blood Pressure : / mmHG Vent. Rate : 098 BPM Atrial Rate : 098 BPM P-R Int : 130 ms QRS Dur : 084 ms QT Int : 346 ms P-R-T Axes : 080 157 -51 degrees QTc Int : 441 ms Normal sinus rhythm Biatrial enlargement Right axis deviation Pulmonary disease pattern Minimal voltage criteria for LVH, may be normal variant ( [place] product ) Nonspecific ST and T wave abnormality Abnormal ECG When compared with ECG of 10-NOV-2023 17:45, MANUAL COMPARISON REQUIRED, DATA IS UNCONFIRMED Confirmed by Sam Zavala ([id number]), editorial writer SHENA NUNES ([id number]) on 11/13/2023 1:28:38 PM Referred By: J CARLOS Confirmed By:Sam Zavala
[2023-11-10 17:48] LABS: Bedside Glucose 123 mg/dL (74-106)
--- NOTE | 2023-11-10 18:28 | CL.I_ITS ---
Patient Name: KELLY CASTRO Study Date: 11/10/2023 Performing: Dmitri Moore MD Ht: 66 inches 167.64 cm : 1965 Wt: 131.6 lbs 59.6 kg Age: 58 Gender: male BSA: 1.67 PROCEDURE(S) PERFORMED DC02-(79094)LHC/COR IC12-(57624/C9600)SOLOMON W/WO PTCA, SINGLE CORONARY ARTERY CLINICAL PROFILE AND CO-MORBIDITIES Indications: ACS <= 24 hrs, Abnormal stress test Heart Failure: None CONCLUSIONS CAD as described. Successful drug-eluting stents to mid RCA, proximal RCA and RPL. RECOMMENDATIONS DESCRIPTION OF PROCEDURE The patient arrived to the procedure lab. The risks and benefits of the procedure as well as a full description of our services here and lack of surgical backup were fully explained to the patient and/or their significant other prior to the catheterization. The Timeout was completed, verifying the correct patient and procedure. The patient's procedural site was prepped and draped in the usual fashion. Local anesthetic was given subcutaneously to right radial region with Lidocaine 2%. Using a modified Seldinger technique, arterial access was obtained via the right radial artery, a 6Fr sheath was inserted.. Left Coronary Artery selective angiography was performed in multiple views using a 5 Fr. JL3.5 catheter. Right Coronary Artery selective angiography was then performed in multiple views using a 5 Fr. JR 4 catheterThe images were reviewed and options discussed. A decision was then made to proceed with an Intervention, IVUS or other adjunct procedure. AL 1 Guide catheter was inserted and engaged into the RCA. Guide wire was advanced to the RCA. 2.5x20 Emerge Balloon catheter was inserted. Balloon catheter was advanced across lesion in the right coronary, mid. PTCA balloon inflated at 12 atms for 12 secs. PTCA balloon inflated at 12 atms for 8 secs. PTCA balloon inflated at 12 atms for 8 secs. Angiogram performed post balloon dilatation. PTCA balloon inflated at 12 atms for 6 secs. 3.5x20 Emerge Balloon catheter was inserted. Balloon catheter was advanced across lesion in the right coronary, mid. PTCA balloon inflated at 10 atms for 10. secs. PTCA balloon inflated at 10 atms for 8 secs. PTCA balloon inflated at 10 atms for 6 secs. PTCA balloon inflated at 12 atms for 16 secs. Angiogram performed post balloon dilatation. 4x38 Ewell Drug Eluting stent was inserted. Drug Eluting stent was advanced across the lesion in the right coronary, mid. Angiogram performed post stent deployment. 4x22 Ewell Drug Eluting stent was inserted. Drug Eluting stent was advanced across the lesion in the right coronary, proximal. Angiogram performed post stent deployment. 3x12 Ewell Drug Eluting stent was inserted. Drug Eluting stent was advanced across the lesion in the right coronary, mid. Angiogram performed post stent deployment. Angiogram performed post stent deployment. The arterial sheath was pulled and a TR Band was applied for hemostasis. 10cc of air applied CORONARY ANGIOGRAPHY DOMINANCE: Right Dominant LEFT MAIN: Mild luminal irregularities LEFT ANTERIOR DESCENDING ARTERY: Stent in the LAD is patent with mild in-stent restenosis PROX LAD: Mild luminal irregularities MID LAD: 30 % Stenosis, 50 % Stenosis CIRCUMFLEX ARTERY: Mild luminal irregularities RIGHT CORONARY ARTERY: PROX RCA: 90 % Stenosis MID RCA: 99 % Stenosis DISTAL RCA: 50 % Stenosis RT PLV: 85 % Stenosis INTERVENTION INFORMATION LESION SITE: RCA (Mid) Lesion Complexity: High/C, chronic total occlusion: No, lesion at bifurcation: Yes, thrombus present: Yes, lesion length: 38 mm, culprit lesion: Yes, Previously treated lesion: No Pre Stenosis: 99 % Pre intervention MARLINE flow: 2 PROCEDURE: Drug Eluting Stent with pre and post dilatation There was an RV marginal dislocation that got occluded after balloon angioplasty. Attempts to open this were unsuccessful. This was explained to the patient in detail. Explained to the patient that this puts him in the first 24 to 48 hours at risk for V. tach/V-fib. Patient understands the risks. We will keep him on Integrilin overnight Post Stenosis: 0 % Post intervention MARLINE flow: 3 Lesion Devices: Vaughn .014 190cm BMW [place] Straight Cordis 6 Fr AL1.0 100cm Guide Catheter Goyo Sci EMERGE MR 2.50x20 BALLOON Goyo Sci EMERGE MR 3.50x20 BALLOON Medtronic 4.0 x 38 DANELLE FRONTIER SOLOMON Medtronic 4.0 x 22 DANELLE FRONTIER SOLOMON Medtronic 3.0 x 12 DANELLE FRONTIER SOLOMON LESION SITE: RCA (Proximal) Lesion Complexity: High/C, chronic total occlusion: No, lesion at bifurcation: No, thrombus present: No, lesion length: 20 mm, culprit lesion: Yes, Previously treated lesion: No Pre Stenosis: 90 % Pre intervention MARLINE flow: 2 PROCEDURE: Drug Eluting Stent with pre and post dilatation Post Stenosis: 0 % Post intervention MARLINE flow: 3 LESION SITE: RPL (1st) Lesion Complexity: High/C, chronic total occlusion: No, lesion at bifurcation: No, thrombus present: No, lesion length: 10 mm, culprit lesion: Yes, Previously treated lesion: No Pre Stenosis: 85 % Pre intervention MARLINE flow: 2 PROCEDURE: Drug Eluting Stent 0 % Post intervention MARLINE flow: 3 COMPLICATIONS No Complications PROCEDURE MEDICATIONS Fentanyl 50 mcg IV Versed 1 mg IV Oxygen: 2 L/min via nasal cannula Oxygen: 4 L/min via nasal cannula Brilinta 180 mg PO @ 11/10/2023 16:50:26 Heparin given IA 11/10/2023 15:53:23 Heparin 1000 unit(s) IV 11/10/2023 16:08:15 Heparin 1000 unit(s) IV 11/10/2023 16:31:50 Verapamil 2.5mg, Ntg 100mcgs, 3000 units of Heparin given IA 11/10/2023 15:53:23 SUMMARY OF HEMODYNAMIC DATA Time AIR REST ECG 15:35:35 AO 73/48 (55) SA 15:57:20 AO 84/55 (66) 15:59:41 LV 68/-9, 3 16:02:36 LV 87/4, 11 16:02:46 LVp 91/8, 16 16:03:13 AOp 80/50 (63) 16:03:18 Signed By Dmitri Moore MD On 11/10/2023 18:27:36 Dmitri Moore MD
[2023-11-10 18:34] LABS: Hematocrit 48.9 % (40-54); Hemoglobin 15.2 g/dL (13.0-16.5); Mean Corp Hgb Conc 31.1 g/dL (32-36); Mean Corpuscular Hgb 29.8 pg (27.0-32.0); Mean Corpuscular Volume 95.9 fL (80-94); Mean Platelet Vol. 10.6 fl (6.2-12.0); Platelet Count 266 K/mm3 (150-450); RBC Distribution Width SD 49.4 fl (35.1-43.9)
[2023-11-10] MEDS: EPTIFIBATIDE 75 MG/100 ML VIAL 9 MG CONT INF (18:42)
[2023-11-10] MEDS: 0.9% Normal Saline (1000mL) 1,000 ML 100 ML IV (18:42)
[2023-11-10] MEDS: Morphine 2 MG/ML Syringe 1 MG IV (18:48)
[2023-11-10] MEDS: Ipratropium/Albuterol Sulfate 3 ML AMPUL.NEB INHALATION (19:07)
[2023-11-10] MEDS: Budesonide Respules 0.5 MG/2 ML AMPUL.NEB. INHALATION (19:07)
[2023-11-10] MEDS: 0.9% Normal Saline 500 ML IV.SOLN. IV (21:42)
[2023-11-10] MEDS: 0.9% Saline Lock 10 ML Syringe IV (22:12)
[2023-11-10] MEDS: Morphine 2 MG/ML Syringe IV (22:13)
[2023-11-10] MEDS: Atorvastatin Calcium 40 MG Tablet PO (22:42)
[2023-11-10] MEDS: Insulin Lispro 100 UNIT/ML INSULN.PEN SC (22:43)
[2023-11-10] MEDS: MELATONIN 3 MG TABLET PO (22:43)
[2023-11-10] MEDS: guaiFENesin/D-Methorphan TAB.SR.12H 2 TABLET PO (22:43)
[2023-11-11] VITALS (14 sets, daily range): BP systolic 120–173; BP diastolic 68–103; PULSE 79–106; RESP 14–20; TEMP 35.7–36.7; O2SAT 93–99
[2023-11-11] MEDS: traZODone 50 MG Tablet PO ×2 (00:20→21:13)
[2023-11-11 03:03] LABS: Bedside Glucose 284 mg/dL (74-106)
[2023-11-11] MEDS: EPTIFIBATIDE 75 MG/100 ML VIAL 9 MG CONT INF (03:54)
[2023-11-11] MEDS: Morphine 2 MG/ML Syringe 1 MG IV ×4 (04:50→21:13)
[2023-11-11 06:15] LABS: Hematocrit 42.6 % (40-54); Hemoglobin 13.4 g/dL (13.0-16.5); Mean Corp Hgb Conc 31.5 g/dL (32-36); Mean Corpuscular Hgb 29.8 pg (27.0-32.0); Mean Corpuscular Volume 94.9 fL (80-94); Mean Platelet Vol. 10.4 fl (6.2-12.0); Platelet Count 239 K/mm3 (150-450); RBC Distribution Width CV 13.9 % (11.6-14.6); RBC Distribution Width SD 48.2 fl (35.1-43.9); Red Blood Count 4.49 M/mm3 (4.6-6.2); White Blood Count 11.5 K/mm3 (4.4-11.0)
[2023-11-11 07:21] LABS: Bedside Glucose 115 mg/dL (74-106)
[2023-11-11] MEDS: Budesonide Respules 0.5 MG/2 ML AMPUL.NEB. INHALATION ×2 (07:21→19:44)
[2023-11-11] MEDS: Ipratropium/Albuterol Sulfate 3 ML AMPUL.NEB INHALATION (07:21)
[2023-11-11] MEDS: Glucerna Shake 120 ML LIQUID PO (08:18)
[2023-11-11] MEDS: Aspirin 81 MG TAB.CHEW PO (08:19)
[2023-11-11] MEDS: Gabapentin 100 MG Capsule PO ×3 (08:19→16:43)
[2023-11-11] MEDS: Famotidine 20 MG Tablet PO ×2 (08:20→21:13)
[2023-11-11] MEDS: amLODIPine 10 MG Tablet PO (08:20)
[2023-11-11] MEDS: Tamsulosin HCl 0.4 MG Capsule PO (08:21)
[2023-11-11] MEDS: guaiFENesin/D-Methorphan TAB.SR.12H 2 TABLET PO ×2 (08:21→21:13)
[2023-11-11] MEDS: DULoxetine Hcl 30 MG Capsule PO (08:21)
[2023-11-11] MEDS: Metoprolol Tartrate 25 MG Tablet PO (08:21)
[2023-11-11] MEDS: Loratadine 10 MG Tablet PO (08:21)
[2023-11-11] MEDS: TICAGRELOR 90 MG TABLET PO ×2 (08:21→21:13)
[2023-11-11] MEDS: Enoxaparin 40 MG/0.4 ML Syringe SC (08:22)
[2023-11-11] MEDS: Lisinopril 10 MG Tablet PO (08:23)
--- NOTE | 2023-11-11 10:00 | EKG12_ITS ---
Test Reason : PCI Blood Pressure : / mmHG Vent. Rate : 088 BPM Atrial Rate : 088 BPM P-R Int : 134 ms QRS Dur : 086 ms QT Int : 376 ms P-R-T Axes : 080 227 109 degrees QTc Int : 454 ms Normal sinus rhythm with sinus arrhythmia Biatrial enlargement Right superior axis deviation Pulmonary disease pattern Possible Inferior infarct , age undetermined Abnormal ECG When compared with ECG of 12-NOV-2023 04:51, MANUAL COMPARISON REQUIRED, DATA IS UNCONFIRMED Confirmed by Sam Zavala ([id number]), deputy editor in chief SHENA NUNES ([id number]) on 11/13/2023 1:24:00 PM Referred By: Confirmed By:Sam Zavala
[2023-11-11 10:12] LABS: ALB/GLOB Ratio 1.3 RATIO (0.9-2.4); AST(SGOT) 103 U/L (15-37); Alanine Aminotransfer ALT/SGPT 38 U/L (16-61); Albumin, Serum 3.1 g/dL (3.2-5.0); Alkaline Phosphatase 78 U/L (45-117); Anion Gap 6 (5-15); BUN 13 mg/dL (7-18); BUN/Creat Ratio 23.3 RATIO (10-20); Calcium,Total 8.4 mg/dL (8.5-10.1); Chloride 100 mmol/L (98-107); Creatinine, Serum 0.56 mg/dL (0.70-1.30); EST Glomerular Filtration Rate 159 mL/min (>60); Est Glom Filt Rate - Afr Amer 192 mL/min (>60); Estimated Creatinine Clearance 119.73 ml/min; Globulin 2.4 g/dL (2.2-4.2); Glucose 109 mg/dL (74-106); Potassium 4.1 mmol/L (3.5-5.1); Protein, Total 5.5 g/dL (6.4-8.2); Sodium Level 138 mmol/L (136-145)
[2023-11-11] MEDS: Insulin Lispro 100 UNIT/ML INSULN.PEN SC ×3 (12:03→21:27)
[2023-11-11] MEDS: 0.9% Saline Lock 10 ML Syringe IV ×2 (12:13→16:43)
[2023-11-11 12:53] LABS: Bedside Glucose 211 mg/dL (74-106)
--- NOTE | 2023-11-11 12:55 | PN.CARD_ITS ---
Subjective Subjective Overall improved compared to post PCI yesterday. Patient has a large RCA that was treated with PCI but ended up having an occlusion of an RV marginal branch and has been having symptoms from that. His chest pressure is improved compared to yesterday. He does get episodes of shortness of breath that seem to correlate with episodes of bradycardia that he has. The bradycardia spontaneously resolves and currently he is in sinus rhythm with a heart rate of 80 to 90 bpm. Objective Data Vital Signs: Vital Signs Temp Pulse Resp BP Pulse Ox O2 Del Method O2 Flow Rate 98.1 F 84 18 120/69 97 Nasal Cannula 3 11/11/23 12:05 11/11/23 12:05 11/11/23 12:05 11/11/23 12:05 11/11/23 12:05 11/11/23 12:05 11/11/23 12:05 Oxygen Flow Rate (L/min) 3 Oxygen Delivery Method Nasal Cannula Weight: 131 lb 6.328 oz Body Mass Index (BMI) 21.2 Intake & Output: Intake and Output for Last 24 Hours 11/09/23 11/10/23 11/11/23 23:59 23:59 23:59 Intake Total 580 / 980 2160.45 / 2160.45 Output Total 3350 / 3650 950 / 950 Balance -2770 / -2670 1210.45 / 1210.45 Lab / Micro Data 11/11/23 06:05 11/11/23 06:05 Labs: Laboratory Results - last 24 hr 11/10/23 17:29: POC Glucose 123 H 11/10/23 18:25: WBC 20.0 H, RBC 5.10, Hgb 15.2, Hct 48.9, MCV 95.9 H, MCH 29.8, MCHC 31.1 L, RDW Std Deviation 49.4 H, RDW Coeff of Jorge 14.0, Plt Count 266, MPV 10.6 11/10/23 22:41: POC Glucose 284 H 11/11/23 06:05: WBC 11.5 H, RBC 4.49 L, Hgb 13.4, Hct 42.6, MCV 94.9 H, MCH 29.8, MCHC 31.5 L, RDW Std Deviation 48.2 H, RDW Coeff of Jorge 13.9, Plt Count 239, MPV 10.4, Sodium 138, Potassium 4.1, Chloride 100, Carbon Dioxide 32.0, Anion Gap 6, BUN 13, Creatinine 0.56 L, Estim Creat Clear Calc 119.73, Est GFR (MDRD) Af Amer 192, Est GFR (MDRD) Non-Af 159, BUN/Creatinine Ratio 23.3 H, G lucose 109 H, Calcium 8.4 L, Total Bilirubin 0.50, AST 103 H, ALT 38, Alkaline Phosphatase 78, Total Protein 5.5 L, Albumin 3.1 L, Globulin 2.4, Albumin/Globulin Ratio 1.3 11/11/23 06:33: POC Glucose 115 H 11/11/23 12:02: POC Glucose 211 H Cardiology Labs/Tests 11/10/23 18:25: WBC 20.0 H, RBC 5.10, Hgb 15.2, Hct 48.9, MCV 95.9 H, MCH 29.8, MCHC 31.1 L, Plt Count 266, MPV 10.6 11/11/23 06:05: WBC 11.5 H, RBC 4.49 L, Hgb 13.4, Hct 42.6, MCV 94.9 H, MCH 29.8, MCHC 31.5 L, Plt Count 239, MPV 10.4, Sodium 138, Potassium 4.1, Chloride 100, Carbon Dioxide 32.0, Anion Gap 6, BUN 13, Creatinine 0.56 L, Est GFR (MDRD) Af Amer 192, Est GFR (MDRD) Non-Af 159, BUN/Creatinine Ratio 23.3 H, Glucose 109 H, Calcium 8.4 L, Total Bilirubin 0.50 Rhythm: EKG: ECHO: Stress Test: Cardiac Cath: PCI: CT Surgery: Holter monitor: EPS: PPM: CXR: Chest CT Scan: Radiography Diagnostic Testing: Radiology Impression Echocardiogram 11/09/23 22:35 Interpretation Summary The estimated ejection fraction is 55 %. No evidence for diastolic dysfunction. Ordering Physician: Ange Huffman Referring Physician: DEVONTE DOS SANTOS Performed By: Jenna Batista RCS Physical Exam Const alert and oriented x3 HEENT normocephalic Eyes no scleral icterus Resp normal respiratory effort Resp Narrative: Minimal bibasal crackles Extremity no pedal edema Skin no rashes or lesions noted Assessment & Plan Assessment/Plan (1) Elevated troponin: PLAN: Patient had subtotal occlusion of the mid RCA and also significant stenosis in the proximal RCA and RPL which were all treated with drug-eluting stents. An RV marginal branch got occluded and patient has been having symptoms secondary to that. His chest pressure is better. Will monitor his bradycardia closely. He is off beta-blockers at this time. If he continues to have bradycardia tomorrow then we could switch from Brilinta to Plavix. (2) Chest pain: QUALIFIERS: Chest pain type: other chest pain Qualified Code(s): R07.89 - Other chest pain Charges/Coding Visit Charges Inpatient E&M: 14184 Subs Hosp L2
--- NOTE | 2023-11-11 13:28 | CASEMGMT ---
Social Work SW met w/pt in room, SW provided to pt a list via [employer] of [facility] facilities in network w/pt's insurance, in pt's preferred geographic area and complete w/quality and resource use data. Pt forgot his glasses, SW began to review list w/pt. Pt asked where he can bring his dogs, SW explained that they can visit but they would not be able to stay w/him in SNF. Pt then asked about having a nurse come stay w/him. SW explained that HHC would be covered by insurance, but would be an RN 1-2 times per week, and therapy coming in to work w/him. SW explained [employer] to pt briefly as the program that could help get some aide services into the home. SW explained that this is usually a few hours per week however. Pt seemed unaware that getting more help at home would not be feasible through insurance. Pt is not certain what he wants to do at this point in time. He still has not had PT/OT evaluations. SW explained will have SW/CATHLEEN follow up w/him on Monday for appropriate discharge plan. LIZA Joy
--- NOTE | 2023-11-11 14:20 | PCM.PN.HOSP ---
Subjective Subjective No issues overnight, still has little bit of chest pain but is much better than when he came in. Does have episodes of shortness of breath and bradycardia will monitor Objective Data Objective Data Vital Signs: Vital Signs Temp Pulse Resp BP Pulse Ox O2 Del Method O2 Flow Rate 98.1 F 84 18 120/69 97 Nasal Cannula 3 11/11/23 12:05 11/11/23 12:05 11/11/23 12:05 11/11/23 12:05 11/11/23 12:05 11/11/23 12:05 11/11/23 12:05 Oxygen Flow Rate (L/min) 3 Oxygen Delivery Method Nasal Cannula Weight: 131 lb 6.328 oz Body Mass Index (BMI) 21.2 Intake & Output: Intake and Output for Last 24 Hours 11/10/23 11/11/23 11/12/23 03:59 03:59 03:59 Intake Total 1062.8 / 1062.8 1677.65 / 1677.65 Output Total 3650 / 3650 650 / 650 Balance -2587.2 / -2587.2 1027.65 / 1027.65 Lab / Micro Data 11/11/23 06:05 11/11/23 06:05 Labs: Laboratory Results - last 24 hr 11/10/23 17:29: POC Glucose 123 H 11/10/23 18:25: WBC 20.0 H, RBC 5.10, Hgb 15.2, Hct 48.9, MCV 95.9 H, MCH 29.8, MCHC 31.1 L, RDW Std Deviation 49.4 H, RDW Coeff of Jorge 14.0, Plt Count 266, MPV 10.6 11/10/23 22:41: POC Glucose 284 H 11/11/23 06:05: WBC 11.5 H, RBC 4.49 L, Hgb 13.4, Hct 42.6, MCV 94.9 H, MCH 29.8, MCHC 31.5 L, RDW Std Deviation 48.2 H, RDW Coeff of Jorge 13.9, Plt Count 239, MPV 10.4, Sodium 138, Potassium 4.1, Chloride 100, Carbon Dioxide 32.0, Anion Gap 6, BUN 13, Creatinine 0.56 L, Estim Creat Clear Calc 119.73, Est GFR (MDRD) Af Amer 192, Est GFR (MDRD) Non-Af 159, BUN/Creatinine Ratio 23.3 H, Glucose 109 H, Calcium 8.4 L, Total Bilirubin 0.50, AST 103 H, ALT 38, Alkaline Phosphatase 78, Total Protein 5.5 L, Albumin 3.1 L, Globulin 2.4, Albumin/Globulin Ratio 1.3 11/11/23 06:33: POC Glucose 115 H 11/11/23 12:02: POC Glucose 211 H Micro: Microbiology 11/09/23 16:48 Mucosa - Nasopharyngeal SARS-CoV-2, Influenza & RSV (PCR) - Final Radiography Diagnostic Testing: Radiology Impression Echocardiogram 11/09/23 22:35 Interpretation Summary The estimated ejection fraction is 55 %. No evidence for diastolic dysfunction. Ordering Physician: Ange Huffman Referring Physician: DEVONTE DOS SANTOS Performed By: Jenna Batista RCS Physical Exam Narrative General: Alert, Oriented x3, Cooperative, No apparent distress HEENT: Atraumatic, PERRLA, EOMI, Normocephalic Oral: Moist Mucosa Neck: Supple, No JVD Lungs: Diminished, Normal air movement, No rhonchi, No wheeze, No rales Cardiovascular: Regular rate, Regular Rhythm, Normal S1, Normal S2, No murmurs Abdomen: Soft, Non Tender, Non-Distended, No Hepato-splenomegaly Extremities: No edema, Capillary Refill Less than 3 Seconds Skin: No rashes, No breakdown Musculoskeletal: No Tenderness to Palpation of Joints or Extremities Neurological: No focal neurological deficits, Motor Exam 5/5 strength throughout, Sensory exam intact to light touch and pain Psych/Mental Status: Normal Affect, Appropriate Assessment & Plan Assessment/Plan (1) Elevated troponin: PLAN: Plan 1. Chest pain most likely due to unstable angina/non-STEMI: Patient is being admitted in PCU. Troponin elevated. BNP elevated. Patient had stress test which shows evidence of possible mild inferior ischemia EF 49%. 2D echo shows EF 55% with no evidence of diastolic dysfunction. Discussed with the calciner operator helper Dr. Moore and patient will be taken for cardiac Media Intern. Lipid profile within normal limit. TSH 0.854 low normal. Free T4 ordered. Triple PCR for SARS-CoV-2, flu and RSV are negative. CTA chest negative for PE to the segmental level. No acute abnormality 11/11/2023: Having some bradycardia, will discontinue his metoprolol and monitor per cardiology's recommendations, he is status post 3 stents to his RCA, continue with antiplatelets and his other blood pressure medications 2. PAD/chronic neuropathy of lower extremities: Patient states her lower leg specially foot are cold, cold ID/dusky hold. Patient also gets claudication pain on walking/going up stairs and takes 3 to 4-hour to go away. LEDY/PVR ordered 3. COPD with chronic hypoxic respiratory failure with allergic rhinitis: on home chronic 2.5 L nasal cannula supplementation, DuoNeb as needed. On broadened ascites schedule. Mucinex DM ordered. Does not seem to be in COPD exacerbation 4. Lung cancer, unclear type: Chest CT scan shows 1 cm spiculated soft tissue nodule in the left upper lobe unchanged in size from 11/09/2022. Recommended stat CT in 1 year #5. Diabetes mellitus type II with chronic neuropathy. A1c 6.3. Glucose 115 in the morning and BMP. Glucose 250 in Accu-Chek. Accu-Chek before meals and at bedtime with Humalog sliding scale coverage and hypoglycemia protocol. #6. CAD: Status post PCI, continue aspirin, statin, metoprolol, lisinopril home regimen. 7. Anxiety and depression: continue patient home trazodone as well as Cymbalta home regimen. 8. Hypertension: Continue home regimen including Toprol, lisinopril, amlodipine, IV Lasix as noted above, PRN hydralazine. 9. Hyperlipidemia: We will continuation on statin therapy, fasting profile in normal limit. #10. Chronic cigarette smoking/tobacco Abuse: Encouraged cessation, inpatient consultation per RT, NR if desired. #11 BPH: We will continue patient on Flomax regimen. DVT prophylaxis: Lovenox. Charges/Coding Visit Charges Inpatient E&M: 92376 Subs Hosp L2
[2023-11-11 16:48] LABS: Bedside Glucose 166 mg/dL (74-106)
--- NOTE | 2023-11-11 17:19 | CASEMGMT ---
Per PT note, pt is SBA and not requiring therapy. This RN CM to pt room at this time to discuses DC planning. Per Dr. Sutton, the pt may be discharging tomorrow. The pt has a portable tank at bedside for DC home. The pt home oxygen order is 2L continuous. At this time, the pt states that he is feeling better and does not need or require any HHC or OP Tx. Pt states that he feels safe discharging home and denies further questions or concerns from this RN CM.
[2023-11-11] MEDS: Sodium Chloride 0.65% 1 SPRAY SPRAY.BTL 2 SPRAY NASAL (18:39)
[2023-11-11] MEDS: Atorvastatin Calcium 40 MG Tablet PO (21:12)
[2023-11-11] MEDS: MELATONIN 3 MG TABLET PO (21:13)
[2023-11-11 21:51] LABS: Bedside Glucose 187 mg/dL (74-106)
[2023-11-12] VITALS (9 sets, daily range): BP systolic 135–180; BP diastolic 81–104; PULSE 95–110; RESP 18–20; TEMP 36.3–36.8; O2SAT 94–99; BMI 21.0
[2023-11-12] MEDS: Morphine 2 MG/ML Syringe 1 MG IV ×2 (02:35→06:46)
[2023-11-12] MEDS: 0.9% Saline Lock 10 ML Syringe IV ×3 (02:35→13:10)
[2023-11-12] MEDS: hydrALAZINE 20 MG/ML Vial 10 MG IV (02:45)
[2023-11-12] MEDS: Ipratropium/Albuterol Sulfate 3 ML AMPUL.NEB INHALATION ×2 (03:10→19:37)
[2023-11-12 04:39] LABS: Absolute Lymphocyte Count 2.12 X10^3/uL (0.83-4.51); Absolute Neutrophil Count 8.8 X10^3/uL (2.0-7.7); Basophil# 0.04 X10^3/uL; Basophil% 0.3 % (0-1); Eosinophil# 0.19 X10^3/uL; Eosinophils% 1.5 % (0-5); Hematocrit 45.1 % (40-54); Hemoglobin 14.2 g/dL (13.0-16.5); Lymphocyte # 2.12 X10^3/ul (0.83-4.51); Lymphocyte % 16.8 % (19-41); Mean Corp Hgb Conc 31.5 g/dL (32-36); Mean Corpuscular Hgb 29.8 pg (27.0-32.0); Mean Corpuscular Volume 94.5 fL (80-94); Monocyte# 1.45 X10^3/uL; Monocyte% 11.5 % (0-10); NRBC Flagged by Analyzer 0 % (0-5); Neutrophil # 8.81 X10^3/uL (2.7-7.7); Neutrophil % 69.7 % (47-70); Platelet Count 258 K/mm3 (150-450); RBC Distribution Width SD 48.6 fl (35.1-43.9); Red Blood Count 4.77 M/mm3 (4.6-6.2); White Blood Count 12.6 K/mm3 (4.4-11.0)
[2023-11-12 05:00] LABS: Anion Gap 5 (5-15); BUN 11 mg/dL (7-18); BUN/Creat Ratio 18.9 RATIO (10-20); Calcium,Total 8.8 mg/dL (8.5-10.1); Chloride 98 mmol/L (98-107); Creatinine, Serum 0.58 mg/dL (0.70-1.30); EST Glomerular Filtration Rate 152 mL/min (>60); Est Glom Filt Rate - Afr Amer 184 mL/min (>60); Estimated Creatinine Clearance 114.83 ml/min; Glucose 181 mg/dL (74-106); Potassium 3.5 mmol/L (3.5-5.1); Sodium Level 135 mmol/L (136-145)
[2023-11-12 05:29] LABS: Magnesium 1.9 mg/dL (1.6-2.6)
[2023-11-12] MEDS: amLODIPine 10 MG Tablet PO (06:50)
[2023-11-12] MEDS: Aspirin 81 MG TAB.CHEW PO (06:50)
[2023-11-12] MEDS: Gabapentin 100 MG Capsule PO ×3 (06:51→16:55)
[2023-11-12] MEDS: Lisinopril 10 MG Tablet PO (06:51)
[2023-11-12] MEDS: Insulin Lispro 100 UNIT/ML INSULN.PEN SC ×2 (06:57→12:16)
[2023-11-12 07:19] LABS: Bedside Glucose 174 mg/dL (74-106)
[2023-11-12] MEDS: Budesonide Respules 0.5 MG/2 ML AMPUL.NEB. INHALATION ×2 (07:22→19:37)
[2023-11-12] MEDS: TICAGRELOR 90 MG TABLET PO ×2 (09:41→22:45)
[2023-11-12] MEDS: Loratadine 10 MG Tablet PO (09:42)
[2023-11-12] MEDS: DULoxetine Hcl 30 MG Capsule PO (09:42)
[2023-11-12] MEDS: guaiFENesin/D-Methorphan TAB.SR.12H 2 TABLET PO ×2 (09:42→22:47)
[2023-11-12] MEDS: Tamsulosin HCl 0.4 MG Capsule PO (09:42)
[2023-11-12] MEDS: Famotidine 20 MG Tablet PO ×2 (09:42→22:47)
[2023-11-12] MEDS: Enoxaparin 40 MG/0.4 ML Syringe SC (09:43)
[2023-11-12] MEDS: Lisinopril 20 MG Tablet PO (09:43)
[2023-11-12] MEDS: Sodium Chloride 0.65% 1 SPRAY SPRAY.BTL 2 SPRAY NASAL (09:48)
--- NOTE | 2023-11-12 10:00 | EKG12_ITS ---
Test Reason : AM EKG Blood Pressure : / mmHG Vent. Rate : 098 BPM Atrial Rate : 098 BPM P-R Int : 136 ms QRS Dur : 082 ms QT Int : 320 ms P-R-T Axes : 079 165 -24 degrees QTc Int : 408 ms Sinus rhythm with Premature atrial complexes with Aberrant conduction Biatrial enlargement Right axis deviation Pulmonary disease pattern Nonspecific T wave abnormality Abnormal ECG When compared with ECG of 11-NOV-2023 04:33, MANUAL COMPARISON REQUIRED, DATA IS UNCONFIRMED Confirmed by Sam Zavala ([id number]), film editor supervisor SHENA NUNES ([id number]) on 11/13/2023 1:25:09 PM Referred By: Confirmed By:Sam Zavala
--- NOTE | 2023-11-12 10:00 | PN.CARD_ITS ---
Subjective Subjective Patient continues to improve. His last episode of bradycardia was around 1:40 PM yesterday. He did have an episode of shortness of breath overnight. Apparently patient has this at home as well on and off. His heart rate has been around 110 bpm. Objective Data Vital Signs: Vital Signs Temp Pulse Resp BP Pulse Ox O2 Del Method O2 Flow Rate 98.0 F 110 H 18 156/87 H 94 Nasal Cannula 2 11/12/23 09:37 11/12/23 09:37 11/12/23 09:37 11/12/23 09:37 11/12/23 09:37 11/12/23 09:37 11/12/23 09:37 Oxygen Flow Rate (L/min) 2 Oxygen Delivery Method Nasal Cannula Weight: 130 lb 8.218 oz Body Mass Index (BMI) 21.0 Intake & Output: Intake and Output for Last 24 Hours 11/10/23 11/11/23 11/12/23 23:59 23:59 23:59 Intake Total 580 / 980 2160.45 / 2560.45 1050 / 1050 Output Total 3350 / 3650 950 / 1200 1750 / 1750 Balance -2770 / -2670 1210.45 / 1360.45 -700 / -700 Lab / Micro Data 11/12/23 03:35 11/12/23 03:35 Labs: Laboratory Results - last 24 hr 11/11/23 06:05: Sodium 138, Potassium 4.1, Chloride 100, Carbon Dioxide 32.0, Anion Gap 6, BUN 13, Creatinine 0.56 L, Estim Creat Clear Calc 119.73, Est GFR (MDRD) Af Amer 192, Est GFR (MDRD) Non-Af 159, BUN/Creatinine Ratio 23.3 H, G lucose 109 H, Calcium 8.4 L, Total Bilirubin 0.50, AST 103 H, ALT 38, Alkaline Phosphatase 78, Total Protein 5.5 L, Albumin 3.1 L, Globulin 2.4, Albumin/Globulin Ratio 1.3 11/11/23 12:02: POC Glucose 211 H 11/11/23 16:26: POC Glucose 166 H 11/11/23 21:26: POC Glucose 187 H 11/12/23 03:35: WBC 12.6 H, RBC 4.77, Hgb 14.2, Hct 45.1, MCV 94.5 H, MCH 29.8, MCHC 31.5 L, RDW Std Deviation 48.6 H, RDW Coeff of Jorge 14.0, Plt Count 258, MPV 11.0, Immature Gran % (Auto) 0.200, Neut % (Auto) 69.7, Lymph % (Auto) 16.8 L, M sonia % (Auto) 11.5 H, Eos % (Auto) 1.5, Baso % (Auto) 0.3, Absolute Neuts (auto) 8.8 H, Absolute Lymphs (auto) 2.12, Nucleated RBC % 0, Sodium 135 L, Potassium 3.5, Chloride 98, Carbon Dioxide 32.0, Anion Gap 5, BUN 11, Creatinine 0.58 L, Estim Creat Clear Calc 114.83, Est GFR (MDRD) Af Amer 184, Est GFR (MDRD) Non-Af 152, BUN/Creatinine Ratio 18.9, Glucose 181 H, Calcium 8.8, Magnesium 1.9 11/12/23 06:54: POC Glucose 174 H Cardiology Labs/Tests 11/11/23 06:05: Sodium 138, Potassium 4.1, Chloride 100, Carbon Dioxide 32.0, Anion Gap 6, BUN 13, Creatinine 0.56 L, Est GFR (MDRD) Af Amer 192, Est GFR (MDRD) Non-Af 159, BUN/Creatinine Ratio 23.3 H, Glucose 109 H, Calcium 8.4 L, Total Bilirubin 0.50 11/12/23 03:35: WBC 12.6 H, RBC 4.77, Hgb 14.2, Hct 45.1, MCV 94.5 H, MCH 29.8, MCHC 31.5 L, Plt Count 258, MPV 11.0, Immature Gran % (Auto) 0.200, Neut % (Auto) 69.7, Lymph % (Auto) 16.8 L, Hodgeman % (Auto) 11.5 H, Eos % (Auto) 1.5, Baso % (Auto) 0.3, Absolute Neuts (auto) 8.8 H, Nucleated RBC % 0, Sodium 135 L, Potassium 3.5, Chloride 98, Carbon Dioxide 32.0, Anion Gap 5, BUN 11, Creatinine 0.58 L, Est GFR (MDRD) Af Amer 184, Est GFR (MDRD) Non-Af 152, BUN/Creatinine Ratio 18.9, Glucose 181 H, Calcium 8.8, Magnesium 1.9 Rhythm: EKG: ECHO: Stress Test: Cardiac Cath: PCI: CT Surgery: Holter monitor: EPS: PPM: CXR: Chest CT Scan: Physical Exam Const alert and oriented x3 HEENT normocephalic Eyes no scleral icterus Resp normal respiratory effort Resp Narrative: Minimal wheeze bilaterally Cardio regular rate Extremity no pedal edema Assessment & Plan Assessment/Plan (1) Elevated troponin: PLAN: Patient had subtotal occlusion of the mid RCA and also significant stenosis in the proximal RCA and RPL which were all treated with drug-eluting stents. An RV marginal branch got occluded and patient has been having symptoms secondary to that. His symptoms are improving. Will restart his beta-jesus. Will try 1 dose of IV Lasix to see if this helps with his episodic shortness of breath. Will continue to monitor on telemetry overnight. (2) Chest pain: QUALIFIERS: Chest pain type: other chest pain Qualified Code(s): R07.89 - Other chest pain Charges/Coding Visit Charges Inpatient E&M: 62435 Subs Hosp L2
[2023-11-12 11:35] LABS: Bedside Glucose 200 mg/dL (74-106)
[2023-11-12] MEDS: Ondansetron 4 MG/2 ML Vial IV (13:10)
[2023-11-12] MEDS: Furosemide 40 MG/4 ML Vial IV (13:11)
--- NOTE | 2023-11-12 13:11 | PCM.PN.HOSP ---
Subjective Subjective Doing well, no issues overnight. Has slight chest pain and has intermittent episodes of shortness of breath which is chronic for him Objective Data Objective Data Vital Signs: Vital Signs Temp Pulse Resp BP Pulse Ox O2 Del Method O2 Flow Rate 98.0 F 110 H 18 156/87 H 94 Nasal Cannula 2 11/12/23 09:37 11/12/23 09:37 11/12/23 09:37 11/12/23 09:37 11/12/23 09:37 11/12/23 09:37 11/12/23 09:37 Oxygen Flow Rate (L/min) 2 Oxygen Delivery Method Nasal Cannula Weight: 130 lb 8.218 oz Body Mass Index (BMI) 21.0 Intake & Output: Intake and Output for Last 24 Hours 11/11/23 11/12/23 11/13/23 03:59 03:59 03:59 Intake Total 1062.8 / 1062.8 2077.65 / 2077.65 650 / 650 Output Total 3650 / 3650 900 / 900 2550 / 2550 Balance -2587.2 / -2587.2 1177.65 / 1177.65 -1900 / -1900 Lab / Micro Data 11/12/23 03:35 11/12/23 03:35 Labs: Laboratory Results - last 24 hr 11/11/23 16:26: POC Glucose 166 H 11/11/23 21:26: POC Glucose 187 H 11/12/23 03:35: WBC 12.6 H, RBC 4.77, Hgb 14.2, Hct 45.1, MCV 94.5 H, MCH 29.8, MCHC 31.5 L, RDW Std Deviation 48.6 H, RDW Coeff of Jorge 14.0, Plt Count 258, MPV 11.0, Immature Gran % (Auto) 0.200, Neut % (Auto) 69.7, Lymph % (Auto) 16.8 L, Traverse % (Auto) 11.5 H, Eos % (Auto) 1.5, Baso % (Auto) 0.3, Absolute Neuts (auto) 8.8 H, Absolute Lymphs (auto) 2.12, Nucleated RBC % 0, Sodium 135 L, Potassium 3.5, Chloride 98, Carbon Dioxide 32.0, Anion Gap 5, BUN 11, Creatinine 0.58 L, Estim Creat Clear Calc 114.83, Est GFR (MDRD) Af Amer 184, Est GFR (MDRD) Non-Af 152, BUN/Creatinine Ratio 18.9, Glucose 181 H, Calcium 8.8, Magnesium 1.9 11/12/23 06:54: POC Glucose 174 H 11/12/23 11:13: POC Glucose 200 H Micro: Microbiology 11/09/23 16:48 Mucosa - Nasopharyngeal SARS-CoV-2, Influenza & RSV (PCR) - Final Radiography Diagnostic Testing: Radiology Impression Ankle Brachial Index 11/09/23 22:35 Interpretation Summary Right LEDY 1.21, normal. TBI and Doppler/PVR waveforms of the right ankle normal at rest. Left LEDY 1.07, normal. TBI and Doppler/PVR waveforms of the left ankle normal at rest. Ordering Physician: Ange Huffman Referring Physician: Sabra Young Performed By: Silvia Agarwal RDCS/RVT Physical Exam Narrative General: Alert, Oriented x3, Cooperative, No apparent distress HEENT: Atraumatic, PERRLA, EOMI, Normocephalic Oral: Moist Mucosa Neck: Supple, No JVD Lungs: Diminished, Normal air movement, No rhonchi, No wheeze, No rales Cardiovascular: Regular rate, Regular Rhythm, Normal S1, Normal S2, No murmurs Abdomen: Soft, Non Tender, Non-Distended, No Hepato-splenomegaly Extremities: No edema, Capillary Refill Less than 3 Seconds Skin: No rashes, No breakdown Musculoskeletal: No Tenderness to Palpation of Joints or Extremities Neurological: No focal neurological deficits, Motor Exam 5/5 strength throughout, Sensory exam intact to light touch and pain Psych/Mental Status: Normal Affect, Appropriate Assessment & Plan Assessment/Plan (1) Elevated troponin: PLAN: Plan 1. Chest pain most likely due to unstable angina/non-STEMI: Patient is being admitted in PCU. Troponin elevated. BNP elevated. Patient had stress test which shows evidence of possible mild inferior ischemia EF 49%. 2D echo shows EF 55% with no evidence of diastolic dysfunction. Discussed with the senior sales administrator Dr. 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 Lipid profile within normal limit. TSH 0.854 low normal. Free T4 ordered. Triple PCR for SARS-CoV-2, flu and RSV are negative. CTA chest negative for PE to the segmental level. No acute abnormality 11/11/2023: Having some bradycardia, will discontinue his metoprolol and monitor per cardiology's recommendations, he is status post 3 stents to his RCA, continue with antiplatelets and his other blood pressure medications 11/12/2023: Heart rate has increased so cardiology recommended resuming metoprolol. Will also trial a dose of Lasix to help with his shortness of breath 2. PAD/chronic neuropathy of lower extremities: Patient states her lower leg specially foot are cold, cold ID/dusky hold. Patient also gets claudication pain on walking/going up stairs and takes 3 to 4-hour to go away. LEDY/PVR ordered 3. COPD with chronic hypoxic respiratory failure with allergic rhinitis: on home chronic 2.5 L nasal cannula supplementation, DuoNeb as needed. Mucinex DM ordered. Does not seem to be in COPD exacerbation 4. Lung cancer, unclear type: Chest CT scan shows 1 cm spiculated soft tissue nodule in the left upper lobe unchanged in size from 11/09/2022. Recommended stat CT in 1 year #5. Diabetes mellitus type II with chronic neuropathy. A1c 6.3. Glucose 115 in the morning and BMP. Glucose 250 in Accu-Chek. Accu-Chek before meals and at bedtime with Humalog sliding scale coverage and hypoglycemia protocol. #6. CAD: Status post PCI, continue aspirin, statin, metoprolol, lisinopril home regimen. 7. Anxiety and depression: continue patient home trazodone as well as Cymbalta home regimen. 8. Hypertension: Continue home regimen including Toprol, lisinopril, amlodipine, IV Lasix as noted above, PRN hydralazine. 9. Hyperlipidemia: We will continuation on statin therapy, fasting profile in normal limit. #10. Chronic cigarette smoking/tobacco Abuse: Encouraged cessation, inpatient consultation per RT, NR if desired. #11 BPH: We will continue patient on Flomax regimen. DVT: Lovenox. Charges/Coding Visit Charges Inpatient E&M: 69154 Subs Hosp L2
[2023-11-12 17:17] LABS: Bedside Glucose 138 mg/dL (74-106)
[2023-11-12] MEDS: Metoprolol Tartrate 25 MG Tablet PO (22:46)
[2023-11-12] MEDS: Atorvastatin Calcium 40 MG Tablet PO (22:46)
[2023-11-12] MEDS: MELATONIN 3 MG TABLET PO (22:47)
[2023-11-12 23:58] LABS: Bedside Glucose 118 mg/dL (74-106)
[2023-11-13] MEDS: Morphine 2 MG/ML Syringe 1 MG IV (00:07)
[2023-11-13] MEDS: traZODone 50 MG Tablet PO (01:21)
[2023-11-13 03:14] VITALS: BMI 20.9
[2023-11-13 04:19] VITALS: BP 155/82; PULSE 85; RESP 18; TEMP 36.5; O2SAT 96
[2023-11-13 07:08] LABS: Bedside Glucose 126 mg/dL (74-106)
[2023-11-13 07:48] LABS: Anion Gap 4 (5-15); BUN 12 mg/dL (7-18); BUN/Creat Ratio 18.6 RATIO (10-20); Calcium,Total 9.1 mg/dL (8.5-10.1); Chloride 98 mmol/L (98-107); Creatinine, Serum 0.64 mg/dL (0.70-1.30); EST Glomerular Filtration Rate 135 mL/min (>60); Est Glom Filt Rate - Afr Amer 163 mL/min (>60); Estimated Creatinine Clearance 103.71 ml/min; Glucose 114 mg/dL (74-106); Potassium 3.9 mmol/L (3.5-5.1); Sodium Level 136 mmol/L (136-145)
[2023-11-13] MEDS: Gabapentin 100 MG Capsule PO ×3 (09:05→16:30)
[2023-11-13] MEDS: guaiFENesin/D-Methorphan TAB.SR.12H 2 TABLET PO (09:06)
[2023-11-13 09:07] VITALS: PULSE 74
[2023-11-13] MEDS: Loratadine 10 MG Tablet PO (09:07)
[2023-11-13] MEDS: Tamsulosin HCl 0.4 MG Capsule PO (09:07)
[2023-11-13] MEDS: Famotidine 20 MG Tablet PO (09:07)
[2023-11-13] MEDS: Lisinopril 20 MG Tablet PO (09:07)
[2023-11-13] MEDS: amLODIPine 10 MG Tablet PO (09:07)
[2023-11-13] MEDS: Aspirin 81 MG TAB.CHEW PO (09:07)
[2023-11-13] MEDS: TICAGRELOR 90 MG TABLET PO (09:07)
[2023-11-13] MEDS: DULoxetine Hcl 30 MG Capsule PO (09:07)
[2023-11-13] MEDS: Metoprolol Tartrate 25 MG Tablet PO (09:07)
[2023-11-13] MEDS: Enoxaparin 40 MG/0.4 ML Syringe SC (09:08)
--- NOTE | 2023-11-13 10:00 | EKG12_ITS ---
Test Reason : AM Blood Pressure : / mmHG Vent. Rate : 077 BPM Atrial Rate : 077 BPM P-R Int : 134 ms QRS Dur : 080 ms QT Int : 414 ms P-R-T Axes : 082 129 044 degrees QTc Int : 468 ms Normal sinus rhythm Biatrial enlargement Right axis deviation Pulmonary disease pattern Minimal voltage criteria for LVH, may be normal variant ( Yury product ) Nonspecific T wave abnormality Abnormal ECG Confirmed by Sam Zavala ([id number]), telegraph editor SHENA NUNES ([id number]) on 11/13/2023 1:29:31 PM Referred By: Confirmed By:Sam Zavala
[2023-11-13 10:15] VITALS: BP 144/78; PULSE 80; RESP 16; TEMP 37.1; O2SAT 95
[2023-11-13 10:16] VITALS: O2SAT 95; O2SAT 98
[2023-11-13 10:38] VITALS: O2SAT 95
[2023-11-13 12:02] LABS: Bedside Glucose 126 mg/dL (74-106)
[2023-11-13] MEDS: 0.9% Saline Lock 10 ML Syringe IV (12:28)
[2023-11-13] MEDS: Furosemide 40 MG/4 ML Vial IV (12:28)
--- NOTE | 2023-11-13 14:30 | CASEMGMT ---
MARIAH CONNOLLY updated by hospitalist that patient will be discharging and requesting HHC at discharge. Patient is up SBA in room and no therapy recommended at discharge. MARIAH CONNOLLY in to discuss needs at discharge. Patient states he would like HHC until he is admitted to assisted living. MARIAH CONNOLLY explained skilled HHC services to patient. Patient states that he is wanting [facility] [employer] services to assist with household services. MARIAH CONNOLLY explained that his insurance does not cover [facility] services. Patient states that he thinks he should qualify for Medicaid but no one has helped him with filling out application. MARIAH CONNOLLY explained ALEX process and possible services through [facility]. Patient interested in resources and information. MARIAH CONNOLLY updated SW.
--- NOTE | 2023-11-13 14:39 | DCINST_ITS ---
Discharge Instructions Diet Discharge Diet: Low fat / Low cholesterol Activity Discharge Activity: Return to Normal Activity Dressing / Incision Call your doctor if you observe: Fever of 101 or Higher, Shortness of breath, Dizziness, Fainting spells, Swelling in the ankles, Chest pain and Increased palpitations (irregular heartbeat) Follow Up Care Test Results: Test results from this visit will be discussed in further detail at your follow- up appointment, if applicable. Discharge Plan Admission Admit Date/Time: 11/09/23 21:26 Attending Provider: Jarrett Stuton Primary Care Provider: Sabra Young Consulting Providers: Ange Huffman; Justyn Salmeron Instructions Patient Instructions: Coronary Angioplasty Stenting Dc Discharge Orders/Prescriptions Prescriptions: New Brilinta 90 mg Tablet 90 mg PO BID 30 Days Qty: 60 1RF furosemide [Lasix] 20 mg tablet 20 mg PO DAILY Qty: 30 0RF Continued (DME) Blood Pressure Cuff Misc See Rx Instructions .Route Qty: 1 0RF Rx Instructions: As directed cetirizine [All Day Allergy (cetirizine)] 10 mg tablet 10 mg PO DAILY Qty: 30 1RF lisinopril-hydrochlorothiazide 20-25 mg tablet 1 tab PO DAILY Qty: 30 1RF duloxetine [Cymbalta] 60 mg capsule,delayed release(DR/EC) 60 mg PO DAILY folic acid 1 mg tablet 1 mg PO DAILY colestipol 1 gram tablet 1 g PO BID hydroxyzine HCl 50 mg tablet 50 mg PO Q4H PRN (Reason: ask pcp) omeprazole 20 mg capsule,delayed release(DR/EC) 20 mg PO DAILY buspirone .ROUTE trazodone 100 mg tablet 200 mg PO QHS atorvastatin 40 mg tablet 40 mg PO DAILY 30 Days Qty: 30 1RF aspirin 81 mg tablet,chewable 81 mg PO DAILY@0800 30 Days Qty: 30 1RF amlodipine 10 mg tablet 10 mg PO DAILY Qty: 30 1RF tamsulosin 0.4 mg capsule 0.4 mg PO DAILY Qty: 30 1RF albuterol sulfate 90 mcg/actuation HFA aerosol inhaler 2 puff INHALATION .COMPLEX Qty: 6.7 1RF Rx Instructions: 2 puffs inhaled Q4-6HOURS PRN; budesonide 180 mcg/actuation aerosol powdr breath activated 2 inh inhalation BID Qty: 1 3RF formoterol fumarate 20 mcg/2 mL solution for nebulization 2 ml inhalation Q12H Qty: 120 2RF metformin 500 mg tablet 500 mg PO DAILY Qty: 90 0RF (DME) Blood Glucose Test Strip See Rx Instructions .Route Qty: 50 2RF Rx Instructions: As directed (DME) lancets [Fingerstix Lancets] Misc See Rx Instructions .Route Qty: 100 0RF Rx Instructions: As directed (DME) blood-glucose meter [Blood Glucose Monitoring] Kit See Rx Instructions .Route Qty: 1 0RF Rx Instructions: As directed metoprolol tartrate 25 mg tablet 25 mg PO BID Qty: 60 1RF Discontinued aspirin [Adult Low Dose Aspirin] 81 mg tablet,delayed release (DR/EC) 81 mg PO DAILY pravastatin 20 mg tablet 20 mg PO DAILY paroxetine HCl 40 mg tablet 40 mg PO DAILY Referrals / Follow Up: Sabra Young, [facility] [Primary Care Provider] - Within 1 Week Disposition Disposition (needs filled in before D/C Order can be placed): Home, Self Care
[2023-11-13 14:53] VITALS: BP 136/68; PULSE 95; RESP 14; TEMP 36.9; O2SAT 95
--- NOTE | 2023-11-13 15:34 | CASEMGMT ---
Social Work SW received referral from RNCM. Pt requesting to apply for Medicaid and home services. Phone call to Laura with [employer] and she is able to see pt today to assess for Medicaid. JESSICA provided pt with written information on [facility] home service program. Pt encouraged to call [facility] for free consultation to see if he qualifies for services. Pt appreciative of information and voicing no other needs. HEMAL Schroeder
[2023-11-13] MEDS: Acetaminophen 325 MG Tablet 650 MG PO (16:29)
--- NOTE | 2023-11-13 16:50 | PHA.DC_ITS ---
Pharmacy [facility] has performed discharge medication reconciliation and counseling for this patient. 1. FUROSEMIDE 20MG PO DAILY 2. TICAGRELOR 90MG PO BID The patient's discharge medication list was reviewed for discrepancies and discrepancies were resolved. The patient was counseled on the following discharge medications and changes in medications for homegoing were reviewed. The Reason for Use, instructions for use, and potential side effects were reviewed for all new medications. The patient's questions regarding all of their medications were answered. The patient was able to verbally demonstrate an understanding of their discharge medications. Medications at Discharge Home Medications miscellaneous medical supply (Blood Pressure Cuff) #1 ea 04/04/23 albuterol sulfate 90 mcg/actuation aerosol inhaler 2 puff inhalation .COMPLEX ask pcp #6.7 grams 05/09/23 amlodipine 10 mg tablet 10 mg PO DAILY ask pcp #30 tabs 05/09/23 tamsulosin 0.4 mg capsule 0.4 mg PO DAILY #30 caps 05/09/23 cetirizine 10 mg tablet (All Day Allergy (cetirizine)) 10 mg PO DAILY #30 tabs 05/12/23 lisinopril 20 mg-hydrochlorothiazide 25 mg tablet 1 tab PO DAILY ask pcp #30 tabs 05/12/23 budesonide 180 mcg/actuation breath activated powder inhaler 2 inh inhalation BID #1 ea 05/16/23 formoterol fumarate 20 mcg/2 mL solution for nebulization 2 ml inhalation Q12H #120 mL 05/16/23 blood sugar diagnostic (Blood Glucose Test strips) #50 ea 05/17/23 blood-glucose meter (Blood Glucose Monitoring kit) #1 ea 05/17/23 lancets (Fingerstix Lancets) #100 ea 05/17/23 metformin 500 mg tablet 500 mg PO DAILY #90 tabs 05/17/23 metoprolol tartrate 25 mg tablet 25 mg PO BID ask pcp #60 tabs 05/19/23 buspirone .ROUTE ask pcp 11/09/23 colestipol 1 gram tablet 1 g PO BID ask pcp 11/09/23 duloxetine 60 mg capsule,delayed release (Cymbalta) 60 mg PO DAILY depression 11/09/23 folic acid 1 mg tablet 1 mg PO DAILY health maintenance 11/09/23 hydroxyzine HCl 50 mg tablet 50 mg PO Q4H PRN ask pcp 11/09/23 omeprazole 20 mg capsule,delayed release 20 mg PO DAILY ask pcp 11/09/23 trazodone 100 mg tablet 200 mg PO QHS ask pcp 11/09/23 aspirin 81 mg chewable tablet 81 mg PO DAILY@0800 30 days #30 tabs 11/13/23 atorvastatin 40 mg tablet 40 mg PO DAILY 30 days #30 tabs 11/13/23 furosemide 20 mg tablet (Lasix) 20 mg PO DAILY #30 tabs 11/13/23 ticagrelor 90 mg tablet (Brilinta) 90 mg PO BID 30 days #60 tabs 11/13/23
[2023-11-13 17:00] LABS: Bedside Glucose 128 mg/dL (74-106)
--- NOTE | 2023-11-13 18:03 | PCM.DC.SUM ---
Providers Date of Admission: 11/09/23 Primary Care Physician: Sabra Young AUTO RENTAL CLERK-C Reason For Visit: DYSPNEA,INDETERM TROP, ? HF Diagnosis Discharge Diagnosis (1) Elevated troponin: Status: Acute Code(s): R79.89 - Other specified abnormal findings of blood chemistry Plan Medications at Discharge Home Medications miscellaneous medical supply (Blood Pressure Cuff) #1 ea 04/04/23 albuterol sulfate 90 mcg/actuation aerosol inhaler 2 puff inhalation .COMPLEX ask pcp #6.7 grams 05/09/23 amlodipine 10 mg tablet 10 mg PO DAILY ask pcp #30 tabs 05/09/23 tamsulosin 0.4 mg capsule 0.4 mg PO DAILY #30 caps 05/09/23 cetirizine 10 mg tablet (All Day Allergy (cetirizine)) 10 mg PO DAILY #30 tabs 05/12/23 lisinopril 20 mg-hydrochlorothiazide 25 mg tablet 1 tab PO DAILY ask pcp #30 tabs 05/12/23 budesonide 180 mcg/actuation breath activated powder inhaler 2 inh inhalation BID #1 ea 05/16/23 formoterol fumarate 20 mcg/2 mL solution for nebulization 2 ml inhalation Q12H #120 mL 05/16/23 blood sugar diagnostic (Blood Glucose Test strips) #50 ea 05/17/23 blood-glucose meter (Blood Glucose Monitoring kit) #1 ea 05/17/23 lancets (Fingerstix Lancets) #100 ea 05/17/23 metformin 500 mg tablet 500 mg PO DAILY #90 tabs 05/17/23 metoprolol tartrate 25 mg tablet 25 mg PO BID ask pcp #60 tabs 05/19/23 buspirone .ROUTE ask pcp 11/09/23 colestipol 1 gram tablet 1 g PO BID ask pcp 11/09/23 duloxetine 60 mg capsule,delayed release (Cymbalta) 60 mg PO DAILY depression 11/09/23 folic acid 1 mg tablet 1 mg PO DAILY health maintenance 11/09/23 hydroxyzine HCl 50 mg tablet 50 mg PO Q4H PRN ask pcp 11/09/23 omeprazole 20 mg capsule,delayed release 20 mg PO DAILY ask pcp 11/09/23 trazodone 100 mg tablet 200 mg PO QHS ask pcp 11/09/23 aspirin 81 mg chewable tablet 81 mg PO DAILY@0800 30 days #30 tabs 11/13/23 atorvastatin 40 mg tablet 40 mg PO DAILY 30 days #30 tabs 11/13/23 furosemide 20 mg tablet (Lasix) 20 mg PO DAILY #30 tabs 11/13/23 ticagrelor 90 mg tablet (Brilinta) 90 mg PO BID 30 days #60 tabs 11/13/23 Hospital Course Operations None Procedures 2-D Echocardiogram, Cardiac catheterization and Stress test Summary of Care Provided Minutes Spent on Discharge: 38 Hospital Course: Per HPI: The patient is a 58 y/o M w/ PMHx: HTN, HLD, Hx Lung CA unclear type, Diabetes mellitus type II with Chronic neuropathy, PAF, CAD s/p PCI, Anxiety and Depression, COPD w/ Chronic Hypoxic Respiratory Failure (2.5L NC), Known Pancreatic pseudocyst, tobacco use, BPH who presents to the [facility] ED on 11/09/23 with history of worsening shortness of breath as well as ongoing uncontrolled chronic neuropathy as he has not been on any medication as he has not seen a physician since May with increased lower extremity swelling and right sided chest discomfort described as aching with no radiation nor any associated nausea/emesis or diaphoresis, constant rated 3-4 out of 10 in severity although occasionally worse but more so following coughing bouts with a chronic cough that is unchanged with no recent fevers or chills prompting eventual ED evaluation to be cautious. He notes that he has not been making any of his doctors visits in order to be able to have medications and assessments because of difficulty with rides. He does report significant lower extremity discomfort and pain as well as worsened swelling ongoing for several months especially since he is not been on gabapentin which he noted to have been on previously. he states he is had difficulty walking because of this. Workup in the ED included T98.1, heart 103, BP 175/105, respiratory rate 19, 98% on 2.5 liters nasal cannula which appears to be his chronic flow with most recent repeat vital signs heart rate 97, BP 188/124, respiratory rate 20, 90% on 2.5 L nasal cannula, CBC with WBC 9.9, hemoglobin 15.5, platelet 254 without marked shift, BMP with glucose 115, BNP 1114.5, initial troponin 84 with repeat delta 85, chest CTPA with no acute abnormalities, no acute pulmonary emboli at the segmental level, 1 cm spiculated soft tissue nodule in the left upper lobe which is unchanged since 11/17/22, SARS COVID/influenza/RSV PCR negative, EKG with SR with no acute evidence of ischemia. In the ED patient administered SL NG and lasix 40 mg IV x 1. Hospital Course: 1. Chest pain most likely due to unstable angina/non-STEMI: Patient is being admitted in PCU. Troponin elevated. BNP elevated. Patient had stress test which shows evidence of possible mild inferior ischemia EF 49%. 2D echo shows EF 55% with no evidence of diastolic dysfunction. Discussed with the deli bakery clerk Dr. Moore and patient will be taken for cardiac Space Operations Officer. Lipid profile within normal limit. TSH 0.854 low normal. Free T4 ordered. Triple PCR for SARS-CoV-2, flu and RSV are negative. CTA chest negative for PE to the segmental level. No acute abnormality 11/11/2023: Having some bradycardia, will discontinue his metoprolol and monitor per cardiology's recommendations, he is status post 3 stents to his RCA, continue with antiplatelets and his other blood pressure medications 11/12/2023: Heart rate has increased so cardiology recommended resuming metoprolol. Will also trial a dose of Lasix to help with his shortness of breath 11/13/2023: Chest pain is completely resolved, he does have intermittent shortness of breath but he is feeling better with Lasix. I discussed case with cardiology who felt that discharge on Lasix 20 mg daily would be beneficial. He is feeling much better today and I discussed with him the plan for discharge he expressed understanding of the risk benefits of going home and would like to go home today. He was given resources to have assistance at the house with grocery shopping and food preparation as he has significant struggles with this. Will need to follow-up with his PCP in 3 to 5 days and cardiology as an outpatient. Will continue with aspirin and Brilinta on discharge as well as Lipitor. I did express to him the necessity of staying on the Brilinta and to communicate if it would become too expensive. 2. PAD/chronic neuropathy of lower extremities: Patient states her lower leg specially foot are cold, cold ID/dusky hold. Patient also gets claudication pain on walking/going up stairs and takes 3 to 4-hour to go away. LEDY/PVR ordered 11/12/2023: ABIs are unremarkable 3. COPD with chronic hypoxic respiratory failure with allergic rhinitis: on home chronic 2.5 L nasal cannula supplementation, DuoNeb as needed. Mucinex DM ordered. Does not seem to be in COPD exacerbation 4. Lung cancer, unclear type: Chest CT scan shows 1 cm spiculated soft tissue nodule in the left upper lobe unchanged in size from 11/09/2022. Recommended stat CT in 1 year #5. Diabetes mellitus type II with chronic neuropathy. A1c 6.3. Glucose 115 in the morning and BMP. Glucose 250 in Accu-Chek. Accu-Chek before meals and at bedtime with Humalog sliding scale coverage and hypoglycemia protocol. #6. CAD: Status post PCI, continue aspirin, statin, metoprolol, lisinopril home regimen. 7. Anxiety and depression: continue patient home trazodone as well as Cymbalta home regimen. 8. Hypertension: Continue home regimen including Toprol, lisinopril, amlodipine, IV Lasix as noted above, PRN hydralazine. 9. Hyperlipidemia: We will continuation on statin therapy, fasting profile in normal limit. #10. Chronic cigarette smoking/tobacco Abuse: Encouraged cessation, inpatient consultation per RT, NR if desired. #11 BPH: We will continue patient on Flomax regimen. DVT: Lovenox. Physical Exam Narrative General: Alert, Oriented x3, Cooperative, No apparent distress HEENT: Atraumatic, PERRLA, EOMI, Normocephalic Oral: Moist Mucosa Neck: Supple, No JVD Lungs: Diminished, Normal air movement, No rhonchi, No wheeze, No rales Cardiovascular: Regular rate, Regular Rhythm, Normal S1, Normal S2, No murmurs Abdomen: Soft, Non Tender, Non-Distended, No Hepato-splenomegaly Extremities: No edema, Capillary Refill Less than 3 Seconds Skin: No rashes, No breakdown Musculoskeletal: No Tenderness to Palpation of Joints or Extremities Neurological: No focal neurological deficits, Motor Exam 5/5 strength throughout, Sensory exam intact to light touch and pain Psych/Mental Status: Normal Affect, Appropriate Weight / BMI Weight Weight: 130 lb 1.164 oz Body Mass Index (BMI) 20.9 ABG / Lab / Microbiology Data 11/12/23 03:35 11/13/23 06:16 Laboratory: Laboratory Results - last 24 hr 11/12/23 22:34: POC Glucose 118 H 11/13/23 06:16: Sodium 136, Potassium 3.9, Chloride 98, Carbon Dioxide 34.0 H, Anion Gap 4 L, BUN 12, Creatinine 0.64 L, Estim Creat Clear Calc 103.71, Est GFR (MDRD) Af Amer 163, Est GFR (MDRD) Non-Af 135, BUN/Creatinine Ratio 18.6, Glucose 114 H, Calcium 9.1 11/13/23 06:35: POC Glucose 126 H 11/13/23 11:32: POC Glucose 126 H 11/13/23 16:24: POC Glucose 128 H Microbiology: Microbiology 11/09/23 16:48 Mucosa - Nasopharyngeal SARS-CoV-2, Influenza & RSV (PCR) - Final D/C Instructions Discharge Diet: Low fat / Low cholesterol Call your doctor if you observe: Fever of 101 or Higher, Shortness of breath, Dizziness, Fainting spells, Swelling in the ankles, Chest pain and Increased palpitations (irregular heartbeat) Meaningful Use Info Meaningful Use Meaningful Use Diagnoses (Choose all that apply): None applicable Ischemic Stroke Statin Dosing Therapy Reference: STATIN DOSE THERAPY REFERENCE: * Patients > 75 years receive moderate or high dose statin therapy. * Patients 75 years or YOUNGER should receive HIGH intensity statin dose unless contraindicated. You will be required to document reason for non-treatment if statin daily dose does not meet guidelines. HIGH DOSE STATIN THERAPY DAILY Atorvastatin > than or = to 40 mg Rosuvastatin > than or = to 20 mg Amlodipine + Atorvastatin > than or = to 2.5/40 mg Ezetimibe + Simvastatin 10/80 mg Simvastatin 80mg Discharge Plan Admission Admit Date/Time: 11/09/23 21:26 Attending Provider: Jarrett Sutton Primary Care Provider: Sabra Young Consulting Providers: Ange Huffman; Justyn Salmeron Instructions Patient Instructions: Coronary Angioplasty Stenting Dc Discharge Orders/Prescriptions Prescriptions: New Brilinta 90 mg Tablet 90 mg PO BID 30 Days Qty: 60 1RF furosemide [Lasix] 20 mg tablet 20 mg PO DAILY Qty: 30 0RF Continued (DME) Blood Pressure Cuff Misc See Rx Instructions .Route Qty: 1 0RF Rx Instructions: As directed cetirizine [All Day Allergy (cetirizine)] 10 mg tablet 10 mg PO DAILY Qty: 30 1RF lisinopril-hydrochlorothiazide 20-25 mg tablet 1 tab PO DAILY Qty: 30 1RF duloxetine [Cymbalta] 60 mg capsule,delayed release(DR/EC) 60 mg PO DAILY folic acid 1 mg tablet 1 mg PO DAILY colestipol 1 gram tablet 1 g PO BID hydroxyzine HCl 50 mg tablet 50 mg PO Q4H PRN (Reason: ask pcp) omeprazole 20 mg capsule,delayed release(DR/EC) 20 mg PO DAILY buspirone .ROUTE trazodone 100 mg tablet 200 mg PO QHS atorvastatin 40 mg tablet 40 mg PO DAILY 30 Days Qty: 30 1RF aspirin 81 mg tablet,chewable 81 mg PO DAILY@0800 30 Days Qty: 30 1RF amlodipine 10 mg tablet 10 mg PO DAILY Qty: 30 1RF tamsulosin 0.4 mg capsule 0.4 mg PO DAILY Qty: 30 1RF albuterol sulfate 90 mcg/actuation HFA aerosol inhaler 2 puff INHALATION .COMPLEX Qty: 6.7 1RF Rx Instructions: 2 puffs inhaled Q4-6HOURS PRN; budesonide 180 mcg/actuation aerosol powdr breath activated 2 inh inhalation BID Qty: 1 3RF formoterol fumarate 20 mcg/2 mL solution for nebulization 2 ml inhalation Q12H Qty: 120 2RF metformin 500 mg tablet 500 mg PO DAILY Qty: 90 0RF (DME) Blood Glucose Test Strip See Rx Instructions .Route Qty: 50 2RF Rx Instructions: As directed (DME) lancets [Fingerstix Lancets] Misc See Rx Instructions .Route Qty: 100 0RF Rx Instructions: As directed (DME) blood-glucose meter [Blood Glucose Monitoring] Kit See Rx Instructions .Route Qty: 1 0RF Rx Instructions: As directed metoprolol tartrate 25 mg tablet 25 mg PO BID Qty: 60 1RF Discontinued aspirin [Adult Low Dose Aspirin] 81 mg tablet,delayed release (DR/EC) 81 mg PO DAILY pravastatin 20 mg tablet 20 mg PO DAILY paroxetine HCl 40 mg tablet 40 mg PO DAILY Referrals / Follow Up: Sabra Young NP-C [Primary Care Provider] - Within 1 Week Sam Zavala MD [Med Staff - Active Staff] - Within 1 Month Disposition Disposition (needs filled in before D/C Order can be placed): Home, Self Care Charges/Coding Visit Charges Inpatient E&M: 89528 Disch Hosp >30min
== END 2023-11-13 16:53 | disposition home or self-care (01) | DRG 322 ==
LOC: ED 21:23 → PCU 22:08
PROVIDERS: Internal Medicine; Specialist; Admitting Provider Family Medicine; Emergency Provider Emergency Medicine; PCP Nurse Practitioner; Visit Provider Family Medicine
DX: I21.4 Non-ST elevation (NSTEMI) myocardial infarction (principal); J96.11 Chronic respiratory failure with hypoxia; C34.12 Malignant neoplasm of upper lobe, left bronchus or lung; E11.40 Type 2 diabetes mellitus with diabetic neuropathy, unspecified; E11.51 Type 2 diabetes mellitus with diabetic peripheral angiopathy without gangrene; J44.9 Chronic obstructive pulmonary disease, unspecified; F32.A Depression, unspecified; I10 Essential (primary) hypertension; I48.0 Paroxysmal atrial fibrillation; E78.5 Hyperlipidemia, unspecified; R00.1 Bradycardia, unspecified; F41.9 Anxiety disorder, unspecified; F17.210 Nicotine dependence, cigarettes, uncomplicated; I25.2 Old myocardial infarction; J30.9 Allergic rhinitis, unspecified; I25.110 Atherosclerotic heart disease of native coronary artery with unstable angina pectoris; N40.0 Benign prostatic hyperplasia without lower urinary tract symptoms; Z66 Do not resuscitate; Z11.52 Encounter for screening for COVID-19; Z99.81 Dependence on supplemental oxygen; Z79.02 Long term (current) use of antithrombotics/antiplatelets; Z79.82 Long term (current) use of aspirin; Z79.51 Long term (current) use of inhaled steroids; Z79.84 Long term (current) use of oral hypoglycemic drugs; Z95.5 Presence of coronary angioplasty implant and graft
CPT/HCPCS: 36415; 71275; 78452; 80048; 80053; 80061; 82962; 83036; 83735; 83880; 84145; 84443; 84484; 85025; 85027; 87631; 92928; 93005; 93017; 93306; 93454; 93922; 94640; 94668; 94762; 97803; 99152; 99153; 99285; 99406; A9500; J7030; J7040; Q9967; A4216; C1725; C1769; C1874; C1887; C1894; C9600; J1327; J1940; J2405; J2785

== ENCOUNTER → 2023-12-04 | Outpatient (CLI) | payer MEDICARE, SELFPAY ==
[2023-12-04 16:37] LABS: Anion Gap 5 (5-15); BUN 8 mg/dL (7-18); BUN/Creat Ratio 11.6 RATIO (10-20); Calcium,Total 9.6 mg/dL (8.5-10.1); Chloride 94 mmol/L (98-107); Creatinine, Serum 0.69 mg/dL (0.70-1.30); EST Glomerular Filtration Rate 125 mL/min (>60); Est Glom Filt Rate - Afr Amer 151 mL/min (>60); Glucose 109 mg/dL (74-106); Potassium 4.9 mmol/L (3.5-5.1); Sodium Level 137 mmol/L (136-145); Troponin-I HS 50 pg/mL (3.0-78.0)
== END | disposition home or self-care (01) ==
PROVIDERS: PCP Nurse Practitioner; Referring Provider Nurse Practitioner; Visit Provider Nurse Practitioner
DX: I25.10 Atherosclerotic heart disease of native coronary artery without angina pectoris (principal); I10 Essential (primary) hypertension
CPT/HCPCS: 36415; 80048; 84484

== ENCOUNTER 2024-04-16 08:37 | Day surgery (SDC) | payer MEDICARE, SELFPAY ==
--- NOTE | 2024-04-09 16:07 | PCM.HP.BLA ---
History and Physical Date of Admission: 04/16/24 HPI HPI History of Present Illness Details: This is a 59-year-old male who presents to the label remover today for a [facility]. He was evaluate [facility] in October 2023 for shortness of breath and chest discomfort. He had a stress test on 11/10/2023 that was considered to be abnormal with mild inferior ischemia. He proceeded with heart catheterization that showed patent LAD stent with mild in-stent restenosis, mid LAD with 30% stenosis and 50% stenosis, LCx with mild disease, proximal RCA with 90% stenosis, mid RCA with 99% stenosis, distal RCA with 50% stenosis, and right PLV at 85% stenosis. He proceeded with drug-eluting stent to mid RCA, proximal RCA, and RPL. Echocardiogram showed an ejection fraction of 55% and mildly dilated RV. He was seen with primary care provider on 12/04/2023 and noted chest pressure. He declined ER evaluation. He underwent outpatient troponin testing that was negative. He has a past medical history of coronary artery disease with stenting x 2 in 2008, hypertension, lung cancer, tobacco abuse, peripheral arterial disease, and COPD. On 03/19/2024 at 9:26 AM, patient had an 8-second run of ventricular tachycardia at 129 bpm. He was started on low-dose metoprolol. On 03/28/2024, he was noted to have a junctional heart rhythm at a rate of 33 bpm. He acknowledges associated symptoms that include lightheadedness, dizziness, chest pain, and shortness of breath. His case was reviewed with Dr. Barakat. Heart catheterization films were reviewed. Given his history of recent right coronary artery stenting to mid RCA, proximal RCA, and RPL in the setting of recent dysrhythmia that includes ventricular tachycardia for 8 seconds, it was recommended to proceed with heart catheterization to reevaluate intervention. He acknowledges chest pain associated with increase in coughing. He acknowledges palpitations that he describes as fast. This is noted with activity and walking too fast. He acknowledges bilateral lower extremity edema. He acknowledges shortness of breath activity. He denies shortness of breath at rest or orthopnea. He acknowledges dizziness, lightheadedness, syncope, and weakness. He denies near-syncope. He acknowledges fatigue. Intake Vital Signs: See EMR Intake Visit Reasons: [facility] Allergies Environmental Allergies: Uncoded Adverse Reaction (Mild, Verified 02/19/24 13:43) nasal congestion Medications: See EMR Ejection fraction %: 55 Have you fallen in the past year?: Yes (Passed out) PFSH Medical History Anxiety and depression Lung cancer Chronic hypoxic respiratory failure, on home oxygen therapy PAD (peripheral artery disease) Coronary artery disease BPH (benign prostatic hyperplasia) Tobacco use disorder Pancreatic pseudocyst/cyst Myocardial infarction Neuropathy Hypertension COPD (chronic obstructive pulmonary disease) Pancreatic pseudocyst Lung cancer Surgical History Stented coronary artery (11/10/23) History of hernia surgery Previous back surgery History of shoulder surgery History of heart artery stent Family History Father Cancer PROSTATE Thyroid disorderMother Hypertension Cancer GYNECOLOGICALGrandfather HypertensionBrother Cancer PROSTATE HypertensionOther Elevated troponin Social History household members: none other: Patient with significant transportation issues and no phone available on a Smoking Status: Current every day smoker tobacco type: cigarettes how long ago did patient quit smoking: Currently 1 pack of cigarettes daily but previously 2 packs alcohol intake: former substance use type: does not use and former substance user what type of physical activity do you participate in: none seatbelt use: always do you feel safe at home: Yes ROS Const Const: Positive for fatigue and weakness Eyes Eyes: Negative for change in vision ENT ENT: Positive for dizziness; Negative for balance problems Cardio Chest Pain: Yes (Relates to coughing alot) Palpitations: Yes (with any amout of exertion or walking too fast) feels like its: fast Edema: Bilateral Muscle aches with walking: None Resp Respiratory: Positive for SOB with activity; Negative for SOB at rest or SOB orthopnea\SOB lying down GI GI: Negative nausea or heartburn : Negative for hematuria or frequent nighttime urination/ nocturia Musc Musc: Negative for balance problems Skin Skin: Negative non-healing lesions or rash Neuro Neuro: Positive for dizziness, lightheadedness, syncope and weakness; Negative for near syncope Endo Endo: Positive for fatigue Allergy Allergy/Immunology: Negative for rash Cardiology Exam Const Appearance: cooperative, healthy appearing, comfortable and no acute distress Nutritional Appearance: average body habitus and well nourished Orientation: alert, awake and oriented x3 Head Head: normal to inspection Ears: hearing grossly normal bilaterally Nose: external nose normal Face and Sinus: face symmetric Mouth: moist mucous membranes Eyes General: appearance normal, both eyes and all related structures Eyelids: eyelids normal EOM: EOM intact bilaterally Neck Neck: normal visual inspection and no JVD Carotids: normal carotid upstroke Chest Chest inspection: normal inspection of the chest, symmetric chest movement and normal respiratory effort; Negative cough Auscultation: Bilateral: Clear to Auscultation Cardio Rate: regular rate Rhythm: regular rhythm Heart sounds: S1 normal and S2 normal; Negative rub, gallop or murmur GI GI: normal to inspection Neuro General: patient alert, patient awake, patient oriented x3 and CN's II-XI intact bilaterally Skin Skin: no rashes or lesions noted Extremities Pulses: Normal: Right Posterior Tibial Pulse, Left Posterior Tibial Pulse, Right Radial Pulse and Left Radial Pulse Lower Extremity Edema: None: Bilateral Psych Psychological: normal affect Supplemental Info Supplemental Information Cardiac Catheterization 11/10/2023 CONCLUSIONS CAD as described. Successful drug-eluting stents to mid RCA, proximal RCA and RPL. CORONARY ANGIOGRAPHY DOMINANCE: Right Dominant LEFT MAIN: Mild luminal irregularities LEFT ANTERIOR DESCENDING ARTERY: Stent in the LAD is patent with mild in-stent restenosis PROX LAD: Mild luminal irregularities MID LAD: 30 % Stenosis, 50 % Stenosis CIRCUMFLEX ARTERY: Mild luminal irregularities RIGHT CORONARY ARTERY: PROX RCA: 90 % Stenosis MID RCA: 99 % Stenosis DISTAL RCA: 50 % Stenosis RT PLV: 85 % Stenosis Stress Test 11/10/2023 Impression: 1. Lexiscan stress test test is negative for Lexiscan infusion induced EKG changes of ischemia. 2. Lexiscan stress test test is negative for Lexiscan infusion induced chest pain. 3. Results of the nuclear portion of the test is as below Impression: 1. There is evidence of possible mild inferior ischemia. 2. Estimated ejection fraction is 49%. Echocardiogram 11/09/2023 Interpretation Summary The estimated ejection fraction is 55 %. No evidence for diastolic dysfunction. Chest CTA 11/09/2023 IMPRESSION: No acute abnormalities. Specifically, no evidence of acute pulmonary emboli to the segmental level. 1 cm spiculated soft tissue nodule in the left upper lobe, unchanged in size since 11/17/2022. Per Fleischner criteria, consider additional follow-up chest CT in one year. Assessment and Plan Assessment and Plan (1) Stented coronary artery: Status: Chronic Comment: [place] SOL[place]ON 4.0 X 38; 4.0 X 22; and 3.0 X 12 to Mid and Proximal RCA and RPL Plan: On account of ventricular tachycardia and junctional rhythm noted on event monitor in the setting of recent stenting, he will proceed with heart catheterization to reevaluate coronary artery disease. Depending on results, further recommendation will be made. (2) Hypertension: Status: Chronic Qualifiers: Hypertension type: primary hypertension Qualified Code(s): I10 - Essential (primary) hypertension Plan: Patient's blood pressure is well-controlled. We will continue to monitor. We will not make any medication regimen changes. (3) Tobacco use: Status: Acute Plan: He was remind of the importance of smoking cessation in relation to cardiovascular health. Will continue to promote smoking cessation. (4) Shortness of breath: Status: Acute Plan: He does have significant pulmonary condition that may be contributing. He was encouraged to follow-up with primary care provider. Pulmonology referral reviewed with him as a potential option depending on PCP input. (5) Dizziness: Status: Acute Plan: On account of such dizziness, he underwent an event monitor that. This showed 1 episode of ventricular tachycardia lasting 8 seconds and junctional rhythm. He will proceed with heart catheterization. Depending on such results, further recommendation be made. Plan Details Additional Comments: Thank you for allowing us to participate in the patients plan of care, if you have any questions please do not hesitate to call. Plan was reviewed with patient/family member along with red flag symptoms. Understanding was acknowledged. Questions were answered to apparent satisfaction. This note was generated using a voice recognition system and there may be incorrect words, spelling or punctuation that were not noted when reviewing the office note prior to saving. Portions of this documentation were copied and pasted from previous office visit notes to provide a cohesive continuity of the history. The note has been reviewed, edited, and updated, as necessary.
[2024-04-15 09:12] VITALS: BMI 21.4
[2024-04-16 08:56] LABS: Absolute Lymphocyte Count 1.15 X10^3/uL (0.83-4.51); Absolute Neutrophil Count 8.1 X10^3/uL (2.0-7.7); Basophil# 0.05 X10^3/uL; Basophil% 0.5 % (0-1); Eosinophil# 0.15 X10^3/uL; Eosinophils% 1.5 % (0-5); Hematocrit 41.3 % (40-54); Hemoglobin 12.8 g/dL (13.0-16.5); Lymphocyte # 1.15 X10^3/ul (0.83-4.51); Lymphocyte % 11.4 % (19-41); Mean Corpuscular Volume 96.7 fL (80-94); Mean Platelet Vol. 9.3 fl (6.2-12.0); Monocyte# 0.61 X10^3/uL; Monocyte% 6.1 % (0-10); NRBC Flagged by Analyzer 0 % (0-5); Neutrophil # 8.07 X10^3/uL (2.7-7.7); Neutrophil % 80.1 % (47-70); Platelet Count 353 K/mm3 (150-450); RBC Distribution Width CV 14.9 % (11.6-14.6); RBC Distribution Width SD 52.9 fl (35.1-43.9); Red Blood Count 4.27 M/mm3 (4.6-6.2); White Blood Count 10.1 K/mm3 (4.4-11.0)
[2024-04-16 09:13] LABS: International Normalized Ratio 0.9; Prothrombin Time (Protime)PT. 12.4 SECONDS (11.7-14.9)
--- NOTE | 2024-04-16 13:43 | CRPHASE1 ---
Patient Communication Patient Information Former Patient:: Phase I PHII Cardiac Rehab Discussed with Patient:: Yes (patient was given education and referral previously and never followed up ) Guide to Cardiac Rehab Given to Patient:: Yes Cardiac Rehab Facility Choice List Given to Patient:: Yes Communication to Cardiac Rehab Choice Program [facility] CR PHII:: Communication Given to CR and Refer to [facility] Choice Program Other:: Communication Given to CR Lockstitch Front Maker:: Kervin Moore Refer Phase II Cardiac Rehab:: Yes Post Discharge Choice Letter Given to Patient:: Yes Phase I Charge:: Level I - Education Medical/Surgical History Medical History Angina:: Yes CAD:: Yes Congestive Heart Failure: Pulmonary:: Yes (lung cancer, lung nodules) Hypertension:: Yes CVA/TIA: Cancer:: Yes (lung) Depression:: Yes Anxiety:: Yes Other Medical/Surgical Issues:: oxygen dependent Surgical History PTCA:: Yes Ambulation Ambulation Notes:: needs assistance with ADLS Cardiac Rehabilitation Info Program Information Cardiac Rehabilitation Program Information: Cardiac Rehab The cardiac rehab team at [facility] consists of highly skilled exercise physiologists, nurses, respiratory therapists and physicians working together with you. Our purpose is to help you have a full recovery and achieve the goals you set for yourself. Over the years many of our patients have returned to activities they assumed they would never do again! We can help restore your confidence and motivation to make lifestyle changes that can have a significant impact on your health and quality of life! We can help answer questions and concerns you may have about exercise, lifestyle, medications, diet, stress and anxiety which are common following a hospitalization. WE monitor ECG and vital signs during exercise and discuss your progress with you and report to your physician(s). Cardiac Rehab is proven to help reduce readmissions, improve functional capacity and lower recurrence of problems with your heart. Our Cardiac Rehab program is Certified by the [place] [employer] (AACVPR) and Accredited by the [employer] through our [facility]. You can contact us at . We invite you to call us with your questions or to get started in our program. If you have other questions or concerns be sure to ask your physician/provider during your follow-up visit. WE look forward to seeing you!
--- NOTE | 2024-04-16 13:46 | CRPH1.INSTRU ---
General Education Discussed with Patient CAD and cardiac anatomy and function:: Patient communicates acknowledgment and Needs reinforcement Explanation of diagnoses and procedures:: Patient communicates acknowledgment Sign/Symptoms of CA:: Patient communicates acknowledgment Antiplatelet therapy: Patient communicates acknowledgment Proper use of NTG-SL: Patient communicates acknowledgment Emergency procedures and activation of EMS: Patient communicates acknowledgment Compliance of all prescribed medications: Patient communicates acknowledgment Smoking Risk Factors Patient Nicotine/Smoking Risk Factors Are:: Cigarettes (current smoker) Recommendations Recommendations Include:: Smoking cessation strategies/Smoking packet Response Code Nicotine/Smoking Response Code:: Needs reinforcement Dyslipidemia Risk Factors Patient Dyslipidemia Risk Factors Are:: Total Cholesterol, Triglycerides, HDL and LDL Recommendations Recommendations Include:: Lipid profile provided Response Code Dyslipidemia Response Code:: Needs reinforcement Overweight/Obesity Risk Factors Patient Overweight/Obesity Risk Factors Are:: BMI Normal [18-25 & < 65 years old] (21.5) Recommendations Recommendations Include:: Exercise 5-7 times/week Response Code Overweight/Obesity:: Patient communicates acknowledgment Hypertension Risk Factors Patient Hypertension Risk Factors Are:: No documented hx of HTN Recommendations Recommendations Include:: Maintain BP <130/85 Response Code Hypertension:: Patient communicates acknowledgment Heart Disease Risk Factors Patient Heart Disease Risk Factors Are:: Previous cardiac event Response Code Heart Disease Response Code:: Patient communicates acknowledgment Diabetes Risk Factors Patient Diabetes Risk Factors Are:: No documented hx of diabetes Metabolic Syndrome Recommendations Recommendations Include:: Does not meet criteria and Encouraged follow-up with Primary Care Physician Response Code Metabolic Syndrome Response Code:: Patient communicates acknowledgment Sedentary Risk Factors Patient Sedentary Risk Factors Are:: Lack of regular exercise Recommendations Recommendations Include:: Benefits of regular exercise, Discussed home walking program and Monitored Outpatient Cardiac Rehab Response Code Sedentary Response Code:: Patient communicates acknowledgment Comments:: encouraged cardiac rehab with patient, but due to oxygen dependence and lack of mobility was not interested Stress Risk Factors Patient Stress Risk Factors Are:: Patient denies stress as a risk factor
[2024-04-16 15:04] LABS: ALB/GLOB Ratio 1.6 RATIO (0.9-2.4); AST(SGOT) 31 U/L (<=37); Alanine Aminotransfer ALT/SGPT 30 U/L (<=46); Albumin, Serum 4.5 g/dL (3.4-4.8); Alkaline Phosphatase 97 U/L (40-129); BUN 9 mg/dL (4-19); BUN/Creat Ratio 10.7 RATIO (10-20); Creatinine, Serum 0.8 mg/dL (0.8-1.3); EST Glomerular Filtration Rate 105 (>60); Estimated Creatinine Clearance 83.79 ml/min; Globulin 2.7 g/dL (2.2-4.2); Glucose 133 mg/dL (70-99); Protein, Total 7.2 g/dL (5.9-8.4); Total Bilirubin 0.25 mg/dL (0.00-1.30)
[2024-04-16 15:10] LABS: Anion Gap 15 (5-15); Calcium,Total 9.9 mg/dL (7.6-11.0); Carbon Dioxide 31.2 mmol/L (21.0-32.0); Chloride 91 mmol/L (98-107); Potassium 3.9 mmol/L (3.5-5.1); Sodium Level 137 mmol/L (136-145)
[2024-04-17 12:05] LABS: Cholesterol 180 mg/dL (<=200); High Density Lipoprotein 109 mg/dL; Low Density Lipoprotein Calc. 60 mg/dL; Triglycerides 54 mg/dL; Very Low Density Lipoprotein 11 mg/dL (5-40); cholesterol:hdl ratio screen 1.65
[2024-04-18 01:31] LABS: Hemoglobin A1c 6.6 % (<=5.6)
--- NOTE | 2024-04-20 11:51 | CL.I_ITS ---
Patient Name: KELLY CASTRO Study Date: 04/16/2024 Performing: Dmitri Moore MD Ht: 66 inches 167.64 cm : 1965 Wt: 133.2 lbs 60.33 kg Age: 59 Gender: male BSA: 1.68 PROCEDURE(S) PERFORMED DC02-(73140)LHC/COR IC12-([id number]/[id number])SOLOMON W/WO PTCA, SINGLE CORONARY ARTERY IC02-(52228)PTCA, EACH ADD'L CORONARY ART, SAME MAJOR CLINICAL PROFILE AND CO-MORBIDITIES Indications: Syncope, V tach Heart Failure: None CONCLUSIONS CAD as described with widely patent stents in the RCA. Successful PCI of mid LAD with drug-eluting stent as described RECOMMENDATIONS DESCRIPTION OF PROCEDURE The patient arrived to the procedure lab. The risks and benefits of the procedure as well as a full description of our services here and lack of surgical backup were fully explained to the patient and/or their significant other prior to the catheterization. The Timeout was completed, verifying the correct patient and procedure. The patient's procedural site was prepped and draped in the usual fashion. Local anesthetic was given subcutaneously to right radial region with Lidocaine 2%. Using a modified Seldinger technique, arterial access was obtained via the right radial artery, a 6Fr sheath was inserted.. Left Coronary Artery selective angiography was performed in multiple views using a 5 Fr. JL3.5 catheter. Right Coronary Artery selective angiography was then performed in multiple views using a 5 Fr. JR 4 catheterThe images were reviewed and options discussed. A decision was then made to proceed with an Intervention, IVUS or other adjunct procedure. XB 3.0 Guide catheter was inserted and engaged into the LCA. BMW Guide wire was advanced to the LAD. Emerge 2.50x12 Balloon catheter was inserted. PTCA balloon inflated at 8 atms for 13 secs. PTCA balloon inflated at 10 atms for 10 secs. PTCA balloon inflated at 10 atms for 18 secs. Angiogram performed post balloon dilatation. [place] 3.0x22 Drug Eluting stent was inserted. Angiogram performed post stent deployment. BMW Guide wire was repositioned to the 1st Diagonal Runthrough Guide wire was advanced to the LAD. Emerge 2.00x12 Balloon catheter was inserted. PTCA balloon inflated at 8 atms for 8 secs. NC Emerge 3.00x15 Balloon catheter was inserted. Angiogram performed post balloon dilatation. The arterial sheath was pulled and a TR Band was applied for hemostasis w/ 11ml air CORONARY ANGIOGRAPHY DOMINANCE: Right Dominant LEFT MAIN: Mild luminal irregularities LEFT ANTERIOR DESCENDING ARTERY: 30 to 40% diffuse in-stent restenosis in the proximal and mid LAD. Distal to this there is a 70% stenosis in the mid LAD immediately after the origin of diagonal 3 branch. The diagonal 3 branch has a 70% stenosis in the ostial portion. CIRCUMFLEX ARTERY: Mild luminal irregularities RIGHT CORONARY ARTERY: Widely patent stents in the RCA. Ostial RPL has a 40% stenosis INTERVENTION INFORMATION LESION SITE: LAD (Mid) Lesion Complexity: High/C, chronic total occlusion: No, lesion at bifurcation: Yes, thrombus present: No, lesion length: 18 mm, culprit lesion: Yes, Previously treated lesion: No, In-stent restenosis: No Pre Stenosis: 70 % Pre intervention MARLINE flow: 3 PROCEDURE: Drug Eluting Stent with pre and post dilatation The stent was deployed across the diagonal 3 branch jailing it. Stent struts were crossed with the BMW wire and ostium of the diagonal 3 was dilated with a 2 mm balloon. The stent was then postdilated with a 3.0 NC balloon Post Stenosis: 0 % Post intervention MARLINE flow: 3 Lesion Devices: Cordis 6 Fr XB3.0 100cm Guide Catheter Vaughn .014 190cm BMW Warren Straight Goyo Sci EMERGE MR 2.50x12 BALLOON Medtronic 3.0 x 22 DANELLE FRONTIER SOLOMON Terumo .014 180cm Runthrough Extra Floppy straight Goyo Sci NC EMERGE MR 3.00x15 BALLOON Lesion Devices: Cordis 6 Fr XB3.0 100cm Guide Catheter Vaughn .014 190cm BMW [place] Straight Goyo Sci EMERGE MR 2.00x12 BALLOON COMPLICATIONS No Complications PROCEDURE MEDICATIONS Versed 0.5 mg IV Fentanyl 25 mcg IV Versed 0.5 mg IV Fentanyl 25 mcg IV Oxygen: 3 L/min via nasal cannula-home o2 at 3L Heparin given IA 04/16/2024 10:20:18 Heparin 2000 unit(s) IV 04/16/2024 10:34:16 Verapamil 2.5mg, Ntg 100mcgs, 3000 units of Heparin given IA 04/16/2024 10:20:18 SUMMARY OF HEMODYNAMIC DATA Time AIR REST ECG 09:13:12 AO 99/61 (76) SA 10:23:10 AO 123/64 (88) 10:37:54 ECG 11:35:42 Signed By Dmitri Moore MD On 04/20/2024 11:51:02 Dmitri Moore MD
== END 2024-04-16 15:26 | disposition home or self-care (01) ==
PROVIDERS: Nurse Practitioner Family; Physician Assistant; Physician Assistant Medical; PCP Internal Medicine; Referring Provider Specialist; Visit Provider Specialist
DX: T82.855A Stenosis of coronary artery stent, initial encounter (principal); J43.8 Other emphysema; I47.29 Other ventricular tachycardia; I25.10 Atherosclerotic heart disease of native coronary artery without angina pectoris; R55 Syncope and collapse; F17.210 Nicotine dependence, cigarettes, uncomplicated; I10 Essential (primary) hypertension; Z95.5 Presence of coronary angioplasty implant and graft; R73.09 Other abnormal glucose; R91.1 Solitary pulmonary nodule; R42 Dizziness and giddiness
CPT/HCPCS: 36415; 80053; 80061; 83036; 83735; 85025; 85610; 92921; 92928; 93005; 93454; 99152; 99153; Q9967; C1725; C1769; C1874; C1887; C1894; C9600